=== PATIENT | female | born 1945 | race Caucasian/White ===

== ENCOUNTER → 2018-06-08 | Outpatient (CLI) | payer MEDICARE ==
--- NOTE | 2018-06-09 11:41 | MM ---
Reason for exam: screening (asymptomatic). Last mammogram was performed 1 year and 4 months ago. History: Patient is postmenopausal and is nulliparous. Family history of breast cancer in maternal cousin at age 50. Took estrogen for 10 years beginning at age 44. Physical Findings: A clinical breast exam by your physician is recommended on an annual basis and results should be correlated with mammographic findings. MG 3D Screening Mammo W/Cad Bilateral CC and MLO view(s) were taken. Prior study comparison: February 10, 2017, bilateral MG 3d screening mammo w/cad. January 08, 2016, bilateral MG 3d screening mammo w/cad. The breast tissue is heterogeneously dense. This may lower the sensitivity of mammography. No significant changes when compared with prior studies. ASSESSMENT: Benign, BI-RAD 2 RECOMMENDATION: Routine screening mammogram of both breasts in 1 year.
== END | disposition home or self-care (01) ==
LOC: RADMAMWWP 09:41
PROVIDERS: ATTEND Obstetrics & Gynecology
DX: Z12.31 Encounter for screening mammogram for malignant neoplasm of breast (principal)
CPT/HCPCS: 77063; 77067

== ENCOUNTER → 2019-11-30 | Outpatient (CLI) | payer MEDICARE ==
--- NOTE | 2019-12-03 09:30 | MM ---
Reason for exam: screening (asymptomatic). Last mammogram was performed 1 year and 6 months ago. History: Patient is postmenopausal, history of other cancer, and is nulliparous. Family history of breast cancer in maternal cousin at age 50. Took estrogen for 10 years beginning at age 44. Physical Findings: A clinical breast exam by your physician is recommended on an annual basis and results should be correlated with mammographic findings. MG 3D Screening Mammo W/Cad Bilateral CC and MLO view(s) were taken. Prior study comparison: June 08, 2018, bilateral MG 3d screening mammo w/cad. February 10, 2017, bilateral MG 3d screening mammo w/cad. The breast tissue is heterogeneously dense. This may lower the sensitivity of mammography. Benign appearing bilateral calcifications. No significant changes when compared with prior studies. ASSESSMENT: Benign, BI-RAD 2 RECOMMENDATION: Routine screening mammogram of both breasts in 1 year.
== END | disposition home or self-care (01) ==
LOC: RADMAMWWP 10:03
PROVIDERS: ATTEND Obstetrics & Gynecology
DX: Z12.31 Encounter for screening mammogram for malignant neoplasm of breast (principal)
CPT/HCPCS: 77063; 77067

== ENCOUNTER → 2020-12-02 | Outpatient (CLI) | payer MEDICARE ==
--- NOTE | 2020-12-04 13:44 | MM ---
Reason for exam: screening (asymptomatic). Last mammogram was performed 1 year ago. History: Patient is postmenopausal, history of other cancer, and is nulliparous. Family history of breast cancer in maternal cousin at age 50. Took estrogen for 10 years beginning at age 44. Physical Findings: A clinical breast exam by your physician is recommended on an annual basis and results should be correlated with mammographic findings. MG 3D Screening Mammo W/Cad Bilateral CC and MLO view(s) were taken. Prior study comparison: November 30, 2019, bilateral MG 3d screening mammo w/cad. June 08, 2018, bilateral MG 3d screening mammo w/cad. The breast tissue is heterogeneously dense. This may lower the sensitivity of mammography. No significant changes when compared with prior studies. ASSESSMENT: Benign, BI-RAD 2 RECOMMENDATION: Routine screening mammogram of both breasts in 1 year.
== END | disposition home or self-care (01) ==
LOC: RADMAMWWP 15:05
PROVIDERS: ATTEND Obstetrics & Gynecology
DX: Z12.31 Encounter for screening mammogram for malignant neoplasm of breast (principal); Z80.3 Family history of malignant neoplasm of breast; Z78.0 Asymptomatic menopausal state
CPT/HCPCS: 77063; 77067

== ENCOUNTER 2021-03-03 12:58 | Emergency (ER) | payer MEDICARE ==
[2021-03-03 13:07] VITALS: TEMP 98.3
[2021-03-03] MEDS ORDERED: MECLIZINE 25 MG TAB PO STA (13:16)
[2021-03-03] MEDS ORDERED: DIAZEPAM 5 MG/ML 2 ML INJ IVP STA (13:16)
[2021-03-03] MEDS ORDERED: ONDANSETRON 4 MG/2 ML VIAL IVP STA (13:16)
--- NOTE | 2021-03-03 13:24 | ED ---
General Adult HPI - General Chief complaint: Dizziness Stated complaint: Dizziness Time Seen by Provider: 03/03/21 13:00 Source: patient, EMS, RN notes reviewed, old records reviewed Mode of arrival: EMS Limitations: no limitations - History of Present Illness Initial comments: This is a 76-year-old female who presents emergency Department complaining of being dizzy. Patient states it started on Tuesday during physical therapy. Symptoms have been getting worse and today after physical therapy she was extremely dizzy and nauseated and vomited. Patient states a couple days ago she did have a mild headache but she no longer has one. Patient states she keeps her eyes" makes her symptoms considerably better. Patient denies any chest pain or palpitations. Patient denies any difficulty breathing shortest breath per patient denies any abdominal pain patient denies nausea vomiting diarrhea per patient denies any visual disturbance. Patient denies any fever chills or cough. Patient denies any hearing loss or ringing in the ears. - Related Data Home Medications Medication Instructions Recorded Confirmed Aspirin EC [Ecotrin] 81 mg PO DAILY 08/18/15 03/22/19 Atorvastatin [Lipitor] 20 mg PO QAM 08/18/15 03/22/19 Calcium Carbonate/Vitamin D3 1 tab PO DAILY 08/18/15 03/22/19 [Calcium 600-Vit D3 400 Caplet] Cod Liver Oil 1 cap PO DAILY 08/18/15 03/22/19 Cyanocobalamin (Vitamin B-12) 5,000 mcg PO DAILY 08/18/15 03/22/19 [Vitamin B12] Esomeprazole Magnesium [NexIUM] 20 mg PO DAILY 08/18/15 03/22/19 Folic Acid 0.4 mg PO DAILY 08/18/15 03/22/19 Meclizine [Antivert] 12.5 mg PO BID PRN 08/18/15 03/22/19 Multivitamins, Thera [Multivitamin] 1 tab PO DAILY 08/18/15 03/22/19 Omeprazole 20 mg PO BID PRN 08/18/15 03/22/19 Tolterodine Tartrate [Detrol LA] 4 mg PO DAILY 08/18/15 03/22/19 Vitamin E (Dl,Tocopheryl Acet) 400 unit PO DAILY 08/18/15 03/22/19 [Vitamin E] metFORMIN HCL [Glucophage] 1,000 mg PO BID 08/18/15 03/22/19 Previous Rx's Medication Instructions Recorded Losartan [Cozaar] 25 mg PO DAILY #30 tab 08/18/15 Meclizine [Antivert] 25 mg PO TID #20 tab 03/03/21 Allergies Allergy/AdvReac Type Severity Reaction Status Date / Time Sulfa (Sulfonamide Allergy Unknown Verified 03/03/21 13:07 Antibiotics) Review of Systems ROS Statement: Those systems with pertinent positive or pertinent negative responses have been documented in the HPI. ROS Other: All systems not noted in ROS Statement are negative. 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 Patient is nontoxic and well- hydrated and is in mild distress. ENT: Neck is soft and supple. No significant lymphadenopathy is noted. Oropharynx is clear. Moist mucous membranes. Neck has full range of motion without eliciting any pain. EYES: The sclera were anicteric and conjunctiva were pink and moist. Extraocular movements were intact and pupils were equal round and reactive to light. Eyelids were unremarkable. PULMONARY: Unlabored respirations. Good breath sounds bilaterally. No audible rales rhonchi or wheezing was noted. CARDIOVASCULAR: There is a regular rate and rhythm without any murmurs gallops or rubs. ABDOMEN: Soft and nontender with normal bowel sounds. SKIN: Skin is clear with no lesions or rashes and otherwise unremarkable. NEUROLOGIC: Patient is alert and oriented x3. Cranial nerves II through XII are grossly intact. Motor and sensory are also intact. Normal speech, volume and content. Symmetrical smile. Finger to nose testing bilaterally was normal MUSCULOSKELETAL: Normal extremities with adequate strength and full range of motion. LYMPHATICS: No significant lymphadenopathy is noted PSYCHIATRIC: Normal psychiatric evaluation. Limitations: no limitations Course Vital Signs 03/03/21 03/03/21 13:04 14:27 Temperature 98.3 F Pulse Rate 73 80 Respiratory 20 18 Rate Blood Pressure 183/83 187/89 O2 Sat by Pulse 98 98 Oximetry Medical Decision Making - Medical Decision Making EKG shows normal sinus rhythm at 77 bpm RI interval is 208 QRSs 1:30 for QT interval 462 QTC is 5.2. Patient's EKG shows left bundle branch block. This is seen in previous EKGs. Patient's CT of the brain showed no acute abnormality. Chest x-ray showed no acute abnormalities. Patient received Zofran and Antivert and 2 of Valium. I will back in and reevaluated the patient and patient was feeling considerably better though she still had a little dizziness. - Lab Data Result diagrams: 03/03/21 13:26 03/03/21 13:26 Lab Results 03/03/21 03/03/21 03/03/21 Range/Units 13:26 13:26 13:26 WBC 10.5 (3.8-10.6) k/uL RBC 4.86 (3.80-5.40) m/uL Hgb 12.3 (11.4-16.0) gm/dL Hct 39.4 (34.0-46.0) % MCV 81.1 (80.0-100.0) fL MCH 25.3 (25.0-35.0) pg MCHC 31.2 (31.0-37.0) g/dL RDW 14.1 (11.5-15.5) % Plt Count 280 (150-450) k/uL MPV 7.8 Neutrophils % 84 % Lymphocytes % 13 % Monocytes % 2 % Eosinophils % 0 % Basophils % 0 % Neutrophils # 8.8 H (1.3-7.7) k/uL Lymphocytes # 1.3 (1.0-4.8) k/uL Monocytes # 0.2 (0-1.0) k/uL Eosinophils # 0.0 (0-0.7) k/uL Basophils # 0.0 (0-0.2) k/uL Hypochromasia Slight PT 11.0 (9.0-12.0) sec INR 1.0 (<1.2) APTT 19.1 L (22.0-30.0) sec Sodium 136 L (137-145) mmol/L Potassium 4.3 (3.5-5.1) mmol/L Chloride 105 (98-107) mmol/L Carbon Dioxide 21 L (22-30) mmol/L Anion Gap 10 mmol/L BUN 20 H (7-17) mg/dL Creatinine 0.74 (0.52-1.04) mg/dL Est GFR (CKD-EPI)AfAm >90 (>60 ml/min/1.73 sqM) Est GFR (CKD-EPI)NonAf 80 (>60 ml/min/1.73 sqM) Glucose 250 H (74-99) mg/dL Calcium 9.4 (8.4-10.2) mg/dL Magnesium 1.6 (1.6-2.3) mg/dL Total Bilirubin 0.7 (0.2-1.3) mg/dL AST 26 (14-36) U/L ALT 22 (4-34) U/L Alkaline Phosphatase 155 H (38-126) U/L Troponin I (0.000-0.034) ng/mL Total Protein 7.2 (6.3-8.2) g/dL Albumin 3.9 (3.5-5.0) g/dL 03/03/21 Range/Units 13:26 WBC (3.8-10.6) k/uL RBC (3.80-5.40) m/uL Hgb (11.4-16.0) gm/dL Hct (34.0-46.0) % MCV (80.0-100.0) fL MCH (25.0-35.0) pg MCHC (31.0-37.0) g/dL RDW (11.5-15.5) % Plt Count (150-450) k/uL MPV Neutrophils % % Lymphocytes % % Monocytes % % Eosinophils % % Basophils % % Neutrophils # (1.3-7.7) k/uL Lymphocytes # (1.0-4.8) k/uL Monocytes # (0-1.0) k/uL Eosinophils # (0-0.7) k/uL Basophils # (0-0.2) k/uL Hypochromasia PT (9.0-12.0) sec INR (<1.2) APTT (22.0-30.0) sec Sodium (137-145) mmol/L Potassium (3.5-5.1) mmol/L Chloride (98-107) mmol/L Carbon Dioxide (22-30) mmol/L Anion Gap mmol/L BUN (7-17) mg/dL Creatinine (0.52-1.04) mg/dL Est GFR (CKD-EPI)AfAm (>60 ml/min/1.73 sqM) Est GFR (CKD-EPI)NonAf (>60 ml/min/1.73 sqM) Glucose (74-99) mg/dL Calcium (8.4-10.2) mg/dL Magnesium (1.6-2.3) mg/dL Total Bilirubin (0.2-1.3) mg/dL AST (14-36) U/L ALT (4-34) U/L Alkaline Phosphatase (38-126) U/L Troponin I <0.012 (0.000-0.034) ng/mL Total Protein (6.3-8.2) g/dL Albumin (3.5-5.0) g/dL Disposition Clinical Impression: Vertigo Disposition: HOME SELF-CARE Condition: Good Instructions (If sedation given, give patient instructions): Vertigo (ED) Prescriptions: Meclizine [Antivert] 25 mg PO TID #20 tab Is patient prescribed a controlled substance at d/c from ED?: No Referrals: Tima Kim DO [Primary Care Provider] - 1-2 days Time of Disposition: 15:16
[2021-03-03 13:44] LABS: Basophils % (A) 0 %; Eosinophils % (A) 0 %; HCT 39.4 % (34.0-46.0); HGB 12.3 gm/dL (11.4-16.0); Hypochromasia Slight; Lymphocytes # (A) 1.3 k/uL (1.0-4.8); Lymphocytes % (A) 13 %; MCH 25.3 pg (25.0-35.0); MCHC 31.2 g/dL (31.0-37.0); MCV 81.1 fL (80.0-100.0); Mean Platelet Volume 7.8; Monocytes # (A) 0.2 k/uL (0-1.0); Monocytes % (A) 2 %; Neutrophils # (A) 8.8 k/uL (1.3-7.7); Neutrophils % (A) 84 %; Platelet Count 280 k/uL (150-450); RBC 4.86 m/uL (3.80-5.40); RDW 14.1 % (11.5-15.5); WBC 10.5 k/uL (3.8-10.6)
[2021-03-03 13:55] LABS: ALT 22 U/L (4-34); AST 26 U/L (14-36); African American GFR (CKD) >90 (>60 ml/min/1.73 sqM); Albumin 3.9 g/dL (3.5-5.0); Alkaline Phosphatase 155 U/L (38-126); Anion Gap 10 mmol/L; Blood Urea Nitrogen 20 mg/dL (7-17); Calcium 9.4 mg/dL (8.4-10.2); Carbon Dioxide 21 mmol/L (22-30); Chloride 105 mmol/L (98-107); Glucose 250 mg/dL (74-99); Magnesium 1.6 mg/dL (1.6-2.3); Non-African American GFR(CKD) 80 (>60 ml/min/1.73 sqM); Potassium 4.3 mmol/L (3.5-5.1); Sodium 136 mmol/L (137-145); Total Bilirubin 0.7 mg/dL (0.2-1.3); Total Protein 7.2 g/dL (6.3-8.2)
--- NOTE | 2021-03-03 14:03 | CT ---
EXAMINATION TYPE: CT brain wo con DATE OF EXAM: 03/03/2021 HISTORY: headache CT DLP: 1099.4 mGycm. Automated Exposure Control for Dose Reduction was Utilized. TECHNIQUE: CT scan of the head is performed without contrast. COMPARISON: CT brain August 18, 2015. FINDINGS: There is no acute intracranial hemorrhage or midline shift identified. There is mild to m oderate diffuse ventricular and sulcal prominence consistent with diffuse age-related cerebral atroph y. There is moderate to severe low-attenuation in the periventricular white matter consistent with c hronic small vessel ischemic change in patient of this age. The globes are intact and the visualized sinuses are clear. IMPRESSION: No acute intracranial hemorrhage or midline shift. There is mild to moderate diffuse c erebral atrophy and moderate to severe chronic small vessel ischemic change redemonstrated. Interval slight progression of findings noted from 2016 CT.
[2021-03-03 14:07] LABS: Partial Thromboplastin Time 19.1 sec (22.0-30.0)
--- NOTE | 2021-03-03 14:07 | XR ---
EXAMINATION TYPE: XR chest 2V DATE OF EXAM: 03/03/2021 COMPARISON: 08/11/1715 TECHNIQUE: PA and lateral views submitted. HISTORY: Chest pain FINDINGS: Heart size prominent with atherosclerotic change aorta. Coarsened interstitium. No pleural effusion o r pneumothorax. Degenerative change spine. Subsegmental changes left lung base. IMPRESSION: 1. Left basilar atelectasis or early infiltrate. 2. COPD. Correlate for chronic interstitial lung disease.
[2021-03-03 14:28] VITALS: BP 187/89; PULSE 80; RESP 18
[2021-03-03] MEDS ORDERED: ONDANSETRON ODT 4 MG TAB PO STA (16:20)
== END 2021-03-03 17:55 | disposition home or self-care (01) ==
LOC: EC 12:58
DX: R42 Dizziness and giddiness (principal); E11.22 Type 2 diabetes mellitus with diabetic chronic kidney disease; I12.9 Hypertensive chronic kidney disease with stage 1 through stage 4 chronic kidney disease, or unspecified chronic kidney disease; N18.2 Chronic kidney disease, stage 2 (mild); K21.9 Gastro-esophageal reflux disease without esophagitis; E78.5 Hyperlipidemia, unspecified; F32.A Depression, unspecified; Z79.82 Long term (current) use of aspirin; Z79.84 Long term (current) use of oral hypoglycemic drugs; Z88.2 Allergy status to sulfonamides; Z90.710 Acquired absence of both cervix and uterus
CPT/HCPCS: 99285; 96374; 96375; 36415; 93005; 80053; 83735; 84484; 85025; 85610; 85730; 71046; 70450; J3360; J2405

== ENCOUNTER 2021-03-04 17:45 | Inpatient (IN) | payer MEDICARE ==
[2021-03-04] MEDS ORDERED: SODIUM CHLORIDE 0.9% 500 ML 500 ML IV STA (20:47)
[2021-03-04] MEDS ORDERED: ONDANSETRON 4 MG/2 ML VIAL IVP STA (20:47)
[2021-03-04] MEDS ORDERED: MECLIZINE 12.5 MG TAB PO STA (20:47)
[2021-03-04] MEDS ORDERED: SCOPOLAMINE 1.5MG/72HR PATCH TRANSDERM STA (20:49)
--- NOTE | 2021-03-04 20:56 | ED ---
General Adult HPI - General Source: patient, family, RN notes reviewed Mode of arrival: wheelchair Limitations: no limitations <Uriel Louis - Last Filed: 03/04/21 22:44> <Latoya Van - Last Filed: 03/06/21 12:23> - General Chief complaint: Recheck/Abnormal Lab/Rx Stated complaint: vertigo-revisit Time Seen by Provider: 03/04/21 20:40 - History of Present Illness Initial comments: This is a pleasant 76-year-old female who presents to emergency department stating that she had onset of vertigo which started Tuesday when she was at physical therapy. Patient states that the dizziness has been getting worse over the past several days. Patient was actually seen here yesterday and had a workup done to include a CT of the head. Patient was given meclizine. Patient states this medication seems to be doing nothing to help her symptomology. Patient still having a spinning sensation with subsequent nausea. Patient denies any chest pain. Patient denies any vision or hearing disturbance. No numbness or tingling. Patient did have a mild headache at onset symptomology but that has resolved. No abdominal pain. No problems with bowel movements or urination. Patient states she feels generally weak because she has not had anything to eat in 3 days. Patient is a known diabetic. Denies hematuria. No skin rashes or lesions. No focal weakness. (Uriel Louis) - Related Data Home Medications Medication Instructions Recorded Confirmed Aspirin EC [Ecotrin] 81 mg PO DAILY 08/18/15 03/04/21 Atorvastatin [Lipitor] 20 mg PO DAILY 08/18/15 03/04/21 Calcium Carbonate/Vitamin D3 1 tab PO DAILY 08/18/15 03/04/21 [Calcium 600-Vit D3 400 Caplet] Cod Liver Oil 2 cap PO DAILY 08/18/15 03/04/21 Cyanocobalamin (Vitamin B-12) 5,000 mcg PO MOWEFR 08/18/15 03/04/21 [Vitamin B12] Folic Acid 0.4 mg PO DAILY 08/18/15 03/04/21 Omeprazole 20 mg PO Q48H 08/18/15 03/04/21 Tolterodine Tartrate [Detrol LA] 4 mg PO DAILY 08/18/15 03/04/21 Vitamin E (Dl,Tocopheryl Acet) 400 unit PO DAILY 08/18/15 03/04/21 [Vitamin E] metFORMIN HCL [Glucophage] 500 mg PO DAILY 08/18/15 03/04/21 Multivit-Min/Iron/Folic/Lutein 1 tab PO DAILY 03/04/21 03/04/21 [Centrum Silver Women Tablet] cycloSPORINE [Restasis] 1 applicator BOTH EYES BID 03/04/21 03/04/21 metFORMIN HCL [Glucophage] 1,000 mg PO HS 03/04/21 03/04/21 Previous Rx's Medication Instructions Recorded Losartan [Cozaar] 25 mg PO DAILY #30 tab 08/18/15 Meclizine [Antivert] 25 mg PO TID #20 tab 03/03/21 Allergies Allergy/AdvReac Type Severity Reaction Status Date / Time Sulfa (Sulfonamide Allergy Unknown Verified 03/04/21 21:53 Antibiotics) Review of Systems ROS Other: All systems not noted in ROS Statement are negative. <Uriel Louis - Last Filed: 03/04/21 22:44> ROS Other: All systems not noted in ROS Statement are negative. <Latoya Van - Last Filed: 03/06/21 12:23> ROS Statement: Those systems with pertinent positive or pertinent negative responses have been documented in the HPI. 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 Patient does have some saccade with hints exam). Absent: scleral icterus, conjunctival injection, periorbital swelling ENT exam: Present: normal exam, mucous membranes moist, TM's normal bilaterally, normal external ear exam Neck exam: Present: normal inspection. Absent: tenderness, meningismus, lymphadenopathy Respiratory exam: Present: normal lung sounds bilaterally. Absent: respiratory distress, wheezes, rales, rhonchi, stridor Cardiovascular Exam: Present: regular rate, normal rhythm, normal heart sounds. Absent: systolic murmur, diastolic murmur, rubs, gallop, clicks GI/Abdominal exam: Present: soft, normal bowel sounds. Absent: distended, tenderness, guarding, rebound, rigid Extremities exam: Present: normal inspection, full ROM, normal capillary refill. Absent: tenderness, pedal edema, joint swelling, calf tenderness Back exam: Present: normal inspection Neurological exam: Present: alert, oriented X3, CN II-XII intact, other (Positive pronator drift on the right which is very mild. Difficulty with finger to nose involving the left hand.) Expanded Patient oriented to: Present: person, place, time Speech: Present: fluid speech Cerebellar function: Finger to Nose: Abnormal Left, Heel to [place]: Normal Eye Response: (4) open spontaneously Motor Response: (6) obeys commands Verbal Response: (5) oriented Elisabet Total: 15 Psychiatric exam: Present: normal affect, normal mood Skin exam: Present: warm, dry, intact, normal color. Absent: rash <Uriel Louis - Last Filed: 03/04/21 22:44> - General Exam Comments Initial Comments: This is a generally healthy-appearing 76-year-old female in mild distress. Patient does not appear to be ill or toxic. Cranial nerves II through XII are intact. (Uriel Louis) Course Vital Signs 03/04/21 03/04/21 03/05/21 18:55 22:00 01:00 Temperature 99.3 F Pulse Rate 94 66 68 Pulse Rate [ Left] Respiratory 18 18 18 Rate Blood Pressure 169/84 171/89 143/83 Blood Pressure [Left Arm] O2 Sat by Pulse 99 97 97 Oximetry 03/05/21 03/05/21 03/05/21 03:20 05:42 07:00 Temperature 98.4 F Pulse Rate 68 67 Pulse Rate [ 70 Left] Respiratory 18 18 18 Rate Blood Pressure 141/75 151/72 Blood Pressure 174/82 [Left Arm] O2 Sat by Pulse 96 97 99 Oximetry 03/05/21 07:12 Temperature 98.7 F Pulse Rate 71 Pulse Rate [ Left] Respiratory 18 Rate Blood Pressure 154/79 Blood Pressure [Left Arm] O2 Sat by Pulse 95 Oximetry Medical Decision Making - Lab Data Result diagrams: 03/04/21 21:19 03/04/21 21:19 - Radiology Data Radiology results: report reviewed, image reviewed <Uriel Louis - Last Filed: 03/04/21 22:44> - Lab Data Result diagrams: 03/04/21 21:19 03/04/21 21:19 <Latoya Van Abhilash - Last Filed: 03/06/21 12:23> - Medical Decision Making Patient presents with intractable vertigo with nausea. Patient will be treated with fluids, meclizine, scopolamine. I did note that the patient has some difficulty with [id number] involving her left hand as well as evidence of pronator drift on the right. We'll consult neurology. Case was discussed in detail with the on-call neurologist, Dr. Ashford who wanted CTA of the head and neck. He also suggests that we admit the patient for observation and MRI in the morning. 325 mg of aspirin advised by neurology. CT head neck shows no acute pathology. Patient given 325 mg of aspirin. Case was discussed with the internal medicine physician, Dr. Dietrich. Patient will be admitted with subsequent MRI in the morning with neurological consultation. (Uriel Louis) - Lab Data Lab Results 03/04/21 03/04/21 03/04/21 Range/Units 21:19 21:19 21:19 WBC 11.1 H (3.8-10.6) k/uL RBC 5.32 (3.80-5.40) m/uL Hgb 13.9 (11.4-16.0) gm/dL Hct 43.3 (34.0-46.0) % MCV 81.5 (80.0-100.0) fL MCH 26.1 (25.0-35.0) pg MCHC 32.0 (31.0-37.0) g/dL RDW 14.8 (11.5-15.5) % Plt Count 346 (150-450) k/uL MPV 7.8 Neutrophils % 82 % Lymphocytes % 13 % Monocytes % 3 % Eosinophils % 0 % Basophils % 0 % Neutrophils # 9.1 H (1.3-7.7) k/uL Lymphocytes # 1.5 (1.0-4.8) k/uL Monocytes # 0.4 (0-1.0) k/uL Eosinophils # 0.1 (0-0.7) k/uL Basophils # 0.0 (0-0.2) k/uL Hypochromasia Slight Sodium 136 L (137-145) mmol/L Potassium 4.8 (3.5-5.1) mmol/L Chloride 103 (98-107) mmol/L Carbon Dioxide 22 (22-30) mmol/L Anion Gap 11 mmol/L BUN 23 H (7-17) mg/dL Creatinine 0.76 (0.52-1.04) mg/dL Est GFR (CKD-EPI)AfAm 89 (>60 ml/min/1.73 sqM) Est GFR (CKD-EPI)NonAf 77 (>60 ml/min/1.73 sqM) Glucose 231 H (74-99) mg/dL POC Glucose (mg/dL) (75-99) mg/dL POC Glu Deportation Examiner ID Estimated Ave Glu mg/dL Hemoglobin A1c % Calcium 9.7 (8.4-10.2) mg/dL Total Bilirubin 0.8 (0.2-1.3) mg/dL AST 37 H (14-36) U/L ALT 23 (4-34) U/L Alkaline Phosphatase 143 H (38-126) U/L Troponin I (0.000-0.034) ng/mL Total Protein 7.6 (6.3-8.2) g/dL Albumin 4.1 (3.5-5.0) g/dL Triglycerides (0.00-149.00) mg/dL Cholesterol (0.00-200.00) mg/dL LDL Cholesterol, Calc (0.0-131.0) mg/dL VLDL Cholesterol, Calc (5.00-40.00) mg/dL HDL Cholesterol (40.00-60.00) mg/dL Cholesterol/HDL Ratio Ratio Vitamin B12 (200.0-944.0) pg/mL Folate (4.40-31.00) ng/mL TSH (0.350-5.500) uIU/mL Urine Color Yellow Urine Appearance Clear (Clear) Urine pH 5.5 (5.0-8.0) Ur Specific [place] 1.020 (1.001-1.035) Urine Protein Trace H (Negative) Urine Glucose (UA) Negative (Negative) Urine Ketones Negative (Negative) Urine Blood Negative (Negative) Urine Nitrite Negative (Negative) Urine Bilirubin Negative (Negative) Urine Urobilinogen <2.0 (<2.0) mg/dL Ur Leukocyte Esterase Negative (Negative) Coronavirus (PCR) (Not Detectd) 03/04/21 03/04/21 03/04/21 Range/Units 21:19 21:19 23:59 WBC (3.8-10.6) k/uL RBC (3.80-5.40) m/uL Hgb (11.4-16.0) gm/dL Hct (34.0-46.0) % MCV (80.0-100.0) fL MCH (25.0-35.0) pg MCHC (31.0-37.0) g/dL RDW (11.5-15.5) % Plt Count (150-450) k/uL MPV Neutrophils % % Lymphocytes % % Monocytes % % Eosinophils % % Basophils % % Neutrophils # (1.3-7.7) k/uL Lymphocytes # (1.0-4.8) k/uL Monocytes # (0-1.0) k/uL Eosinophils # (0-0.7) k/uL Basophils # (0-0.2) k/uL Hypochromasia Sodium (137-145) mmol/L Potassium (3.5-5.1) mmol/L Chloride (98-107) mmol/L Carbon Dioxide (22-30) mmol/L Anion Gap mmol/L BUN (7-17) mg/dL Creatinine (0.52-1.04) mg/dL Est GFR (CKD-EPI)AfAm (>60 ml/min/1.73 sqM) Est GFR (CKD-EPI)NonAf (>60 ml/min/1.73 sqM) Glucose (74-99) mg/dL POC Glucose (mg/dL) (75-99) mg/dL POC Glu Deportation Examiner ID Estimated Ave Glu mg/dL Hemoglobin A1c % Calcium (8.4-10.2) mg/dL Total Bilirubin (0.2-1.3) mg/dL AST (14-36) U/L ALT (4-34) U/L Alkaline Phosphatase (38-126) U/L Troponin I 0.014 0.016 (0.000-0.034) ng/mL Total Protein (6.3-8.2) g/dL Albumin (3.5-5.0) g/dL Triglycerides (0.00-149.00) mg/dL Cholesterol (0.00-200.00) mg/dL LDL Cholesterol, Calc (0.0-131.0) mg/dL VLDL Cholesterol, Calc (5.00-40.00) mg/dL HDL Cholesterol (40.00-60.00) mg/dL Cholesterol/HDL Ratio Ratio Vitamin B12 (200.0-944.0) pg/mL Folate (4.40-31.00) ng/mL TSH (0.350-5.500) uIU/mL Urine Color Urine Appearance (Clear) Urine pH (5.0-8.0) Ur Specific [place] (1.001-1.035) Urine Protein (Negative) Urine Glucose (UA) (Negative) Urine Ketones (Negative) Urine Blood (Negative) Urine Nitrite (Negative) Urine Bilirubin (Negative) Urine Urobilinogen (<2.0) mg/dL Ur Leukocyte Esterase (Negative) Coronavirus (PCR) Not Detected (Not Detectd) 03/05/21 03/05/21 03/05/21 Range/Units 03:43 03:43 03:43 WBC (3.8-10.6) k/uL RBC (3.80-5.40) m/uL Hgb (11.4-16.0) gm/dL Hct (34.0-46.0) % MCV (80.0-100.0) fL MCH (25.0-35.0) pg MCHC (31.0-37.0) g/dL RDW (11.5-15.5) % Plt Count (150-450) k/uL MPV Neutrophils % % Lymphocytes % % Monocytes % % Eosinophils % % Basophils % % Neutrophils # (1.3-7.7) k/uL Lymphocytes # (1.0-4.8) k/uL Monocytes # (0-1.0) k/uL Eosinophils # (0-0.7) k/uL Basophils # (0-0.2) k/uL Hypochromasia Sodium (137-145) mmol/L Potassium (3.5-5.1) mmol/L Chloride (98-107) mmol/L Carbon Dioxide (22-30) mmol/L Anion Gap mmol/L BUN (7-17) mg/dL Creatinine (0.52-1.04) mg/dL Est GFR (CKD-EPI)AfAm (>60 ml/min/1.73 sqM) Est GFR (CKD-EPI)NonAf (>60 ml/min/1.73 sqM) Glucose (74-99) mg/dL POC Glucose (mg/dL) (75-99) mg/dL POC Glu Deportation Examiner ID Estimated Ave Glu mg/dL [facility] Hemoglobin A1c CANCELED % Calcium (8.4-10.2) mg/dL Total Bilirubin (0.2-1.3) mg/dL AST (14-36) U/L ALT (4-34) U/L Alkaline Phosphatase (38-126) U/L Troponin I 0.019 (0.000-0.034) ng/mL Total Protein (6.3-8.2) g/dL Albumin (3.5-5.0) g/dL Triglycerides 109.00 (0.00-149.00) mg/dL Cholesterol 147.00 (0.00-200.00) mg/dL LDL Cholesterol, Calc 77.7 (0.0-131.0) mg/dL VLDL Cholesterol, Calc 21.80 (5.00-40.00) mg/dL HDL Cholesterol 47.50 (40.00-60.00) mg/dL Cholesterol/HDL Ratio 3.09 Ratio Vitamin B12 (200.0-944.0) pg/mL Folate (4.40-31.00) ng/mL TSH (0.350-5.500) uIU/mL Urine Color Urine Appearance (Clear) Urine pH (5.0-8.0) Ur Specific [place] (1.001-1.035) Urine Protein (Negative) Urine Glucose (UA) (Negative) Urine Ketones (Negative) Urine Blood (Negative) Urine Nitrite (Negative) Urine Bilirubin (Negative) Urine Urobilinogen (<2.0) mg/dL Ur Leukocyte Esterase (Negative) Coronavirus (PCR) (Not Detectd) 03/05/21 03/05/21 Range/Units 03:43 12:50 WBC (3.8-10.6) k/uL RBC (3.80-5.40) m/uL Hgb (11.4-16.0) gm/dL Hct (34.0-46.0) % MCV (80.0-100.0) fL MCH (25.0-35.0) pg MCHC (31.0-37.0) g/dL RDW (11.5-15.5) % Plt Count (150-450) k/uL MPV Neutrophils % % Lymphocytes % % Monocytes % % Eosinophils % % Basophils % % Neutrophils # (1.3-7.7) k/uL Lymphocytes # (1.0-4.8) k/uL Monocytes # (0-1.0) k/uL Eosinophils # (0-0.7) k/uL Basophils # (0-0.2) k/uL Hypochromasia Sodium (137-145) mmol/L Potassium (3.5-5.1) mmol/L Chloride (98-107) mmol/L Carbon Dioxide (22-30) mmol/L Anion Gap mmol/L BUN (7-17) mg/dL Creatinine (0.52-1.04) mg/dL Est GFR (CKD-EPI)AfAm (>60 ml/min/1.73 sqM) Est GFR (CKD-EPI)NonAf (>60 ml/min/1.73 sqM) Glucose (74-99) mg/dL POC Glucose (mg/dL) 120 H (75-99) mg/dL POC Glu Deportation Examiner LASHAE AguilarMavis weirelin Estimated Ave Glu mg/dL Hemoglobin A1c % Calcium (8.4-10.2) mg/dL Total Bilirubin (0.2-1.3) mg/dL AST (14-36) U/L ALT (4-34) U/L Alkaline Phosphatase (38-126) U/L Troponin I (0.000-0.034) ng/mL Total Protein (6.3-8.2) g/dL Albumin (3.5-5.0) g/dL Triglycerides (0.00-149.00) mg/dL Cholesterol (0.00-200.00) mg/dL LDL Cholesterol, Calc (0.0-131.0) mg/dL VLDL Cholesterol, Calc (5.00-40.00) mg/dL HDL Cholesterol (40.00-60.00) mg/dL Cholesterol/HDL Ratio Ratio Vitamin B12 861.0 (200.0-944.0) pg/mL Folate >20.00 (4.40-31.00) ng/mL TSH 0.613 (0.350-5.500) uIU/mL Urine Color Urine Appearance (Clear) Urine pH (5.0-8.0) Ur Specific [place] (1.001-1.035) Urine Protein (Negative) Urine Glucose (UA) (Negative) Urine Ketones (Negative) Urine Blood (Negative) Urine Nitrite (Negative) Urine Bilirubin (Negative) Urine Urobilinogen (<2.0) mg/dL Ur Leukocyte Esterase (Negative) Coronavirus (PCR) (Not Detectd) - EKG Data EKG Comments: EKG done at 2102 and reviewed by the ED attending physician reveals a left bundle branch block with a QRS duration of 130 ms. Remainder of the intervals are normal. Rate of 71, no evidence of concordance. Patient does have some evidence of nonspecific T-wave inversions in lead 3 and aVF which are somewhat different in morphology from yesterday's EKG. EKG was reviewed by Dr. Van to include the previous study. The case was discussed in detail with ED attending physician. Presentation, findings, treatment plan discussed in detail. (Uriel Louis) Disposition <Uriel Louis - Last Filed: 03/04/21 22:44> <Latoya Van - Last Filed: 03/06/21 12:23> Clinical Impression: Vertigo, Nausea & vomiting, Ataxia, Hypertension, poor control Disposition: ADMITTED IP TO THIS HOSP Condition: Stable
[2021-03-04 21:32] LABS: Basophils % (A) 0 %; Eosinophils # (A) 0.1 k/uL (0-0.7); Eosinophils % (A) 0 %; HCT 43.3 % (34.0-46.0); HGB 13.9 gm/dL (11.4-16.0); Hypochromasia Slight; Lymphocytes # (A) 1.5 k/uL (1.0-4.8); Lymphocytes % (A) 13 %; MCH 26.1 pg (25.0-35.0); MCV 81.5 fL (80.0-100.0); Mean Platelet Volume 7.8; Monocytes # (A) 0.4 k/uL (0-1.0); Monocytes % (A) 3 %; Neutrophils # (A) 9.1 k/uL (1.3-7.7); Neutrophils % (A) 82 %; Platelet Count 346 k/uL (150-450); RBC 5.32 m/uL (3.80-5.40); RDW 14.8 % (11.5-15.5); WBC 11.1 k/uL (3.8-10.6)
[2021-03-04 21:42] LABS: Albumin 4.1 g/dL (3.5-5.0); Calcium 9.7 mg/dL (8.4-10.2); Potassium 4.8 mmol/L (3.5-5.1); Total Bilirubin 0.8 mg/dL (0.2-1.3); Total Protein 7.6 g/dL (6.3-8.2)
[2021-03-04 21:44] LABS: Appearance,Urine Clear (Clear); Bilirubin,Urine Negative (Negative); Blood,Urine Negative (Negative); Color,Urine Yellow; Glucose,Urine (UA) Negative (Negative); Ketones,Urine Negative (Negative); Leukocyte Esterase,Urine Negative (Negative); Nitrite,Urine Negative (Negative); PH, Urine 5.5 (5.0-8.0); Protein,Urine Trace (Negative); Urobilinogen,Urine <2.0 mg/dL (<2.0)
--- NOTE | 2021-03-04 22:22 | CT ---
EXAMINATION TYPE: CT angio head neck DATE OF EXAM: 03/04/2021 HISTORY: c/o vertigo COMPARISON: CT head 03/03/2021. CT DLP: 418.5 mGycm. Automated Exposure Control for Dose Reduction was Utilized. TECHNIQUE: CTA scan of the head/neck is performed with IV Contrast, patient injected with 65cc mL of Isovue 370, axial images are obtained, coronal and sagittal reformatted images are reviewed. 3D jonas nstructed images are created on an independent workstation and reviewed. FINDINGS: There is mild atherosclerosis of the aortic arch. Otherwise normal three-vessel branching of the aort a. There is no evidence of high-grade stenosis, dissection or aneurysm seen in the bilateral common c arotid, cervical internal carotid and vertebral arteries. There is no evidence of high-grade stenosis, dissection or aneurysm in the intracranial internal gunter tid arteries, anterior, middle and posterior cerebral arteries as well as in the imaged vertebral and basilar arteries. The communicating arteries are unremarkable. IMPRESSION: No significant abnormality of the CTA head/neck. NASCET criteria was used in interpretation of this exam?
[2021-03-04] MEDS ORDERED: ASPIRIN 325 MG TAB PO STA (22:26)
[2021-03-04] MEDS ORDERED: ACETAMINOPHEN TAB 325 MG TAB PO PRN (22:39)
[2021-03-05] MEDS: SODIUM CHLORIDE 0.9% 1,000 ML IV SCH ×2 (03:18→23:49)
[2021-03-05] MEDS ORDERED: ASPIRIN 325 MG TAB PO SCH (09:00)
--- NOTE | 2021-03-05 10:19 | P.CNNES ---
History of Present Illness Consult date: 03/05/21 Requesting physician: Uriel Louis Reason for Consult: Vertigo History of Present Illness: Patient is a 76-year-old right-handed female came to the hospital yesterday at 5:45 PM for evaluation of vertigo. Patient states her symptoms started on 02/27/2021 she started having intermittent dull headache p ointing to the back of the head, with mild dizziness off and on and tiredness. She did not think much of it. However on Tuesday, 2 days ago (on 03/03/2020), while she was getting physical therapy, she developed severe vertigo, started having nausea vomiting and a headache. She felt generalized weak, with no focal weakness. No slurred speech, double vision or loss of vision. The physical therapist called the ambulance and she was brought to the hospital. Patient underwent computed tomography scan of the head, given meclizine prescription and then released. Patient however did not feel well. She would continue to have dizziness with any movement. She was feeling generalized weak, her balance was significantly off, with intermittent nausea and vomiting. Patient's brother and niece brought her to the hospital yesterday for persistent symptoms. Patient states that around 02/09/2021, she started having pain in the right shoulder. Therefore she started getting physical therapy for strengthening of the right upper extremity, twice a week. Patient states that about few years ago she had an episode of vertigo, that lasted for a week and then went away. Since then she has been fine, with no further episodes of vertigo. Patient denies any tinnitus or loss of hearing. Patient states that at present she still feels dizzy, when she moves and feels generalized weak, tired and a dull headache. Patient's vitals on arrival blood pressure 169/84, pulse rate 94 temperature 99.3. Patient's blood test shows WBC 11.1 hemoglobin 13.9, platelets 346. Sodium 136 potassium 4.8, BUN 23, creatinine 0.76. AST 37, ALT 23. Troponin negative. UA negative. Coronal virus PCR negative. CTA of head and neck showed no acute abnormality. No stenosis or aneurysm reported. CT head showed no acute intracranial hemorrhage or midline shift. There is mild to moderate diffuse cerebral atrophy and moderate to severe chronic small vessel ischemic change redemonstrated. Interventions slight progression of findings noted from 2016 CT. Chest x-ray showed left basilar atelectasis or early infiltrate. COPD. Correlate for chronic interstitial lung disease. EKG with normal sinus rhythm, left bundle branch block. Patient has history of diabetes for last 5-10 years. Also has hypertension for long time. Never smoked, does not drink alcohol. Patient claims that she does have some numbness of the hands which she believes is from arthritis. Patient's home medications include Detrol LA 4 mg, B12 5000 g orally, Lipitor 20 mg, folic acid 0.4 mg, calcium, aspirin 81 mg, metformin, losartan, multivitamin. Patient states that she has asthma, but is not bothering her. Denies any recent upper respiratory infection or sinus issues. Review of Systems As mentioned above in detail in HPI. All other 14 point of review systems reviewed and unremarkable. 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 History of Any Multi-Drug Resistant Organisms: None Reported Past Surgical History: Hysterectomy Past Psychological History: Depression Smoking Status: Never smoker Past Alcohol Use History: None Reported Past Drug Use History: None Reported Medications and Allergies Home Medications Medication Instructions Recorded Confirmed Type Aspirin EC [Ecotrin] 81 mg PO DAILY 08/18/15 03/04/21 History Atorvastatin [Lipitor] 20 mg PO DAILY 08/18/15 03/04/21 History Calcium Carbonate/Vitamin D3 1 tab PO DAILY 08/18/15 03/04/21 History [Calcium 600-Vit D3 400 Caplet] Cod Liver Oil 2 cap PO DAILY 08/18/15 03/04/21 History Cyanocobalamin (Vitamin B-12) 5,000 mcg PO MOWEFR 08/18/15 03/04/21 History [Vitamin B12] Folic Acid 0.4 mg PO DAILY 08/18/15 03/04/21 History Losartan [Cozaar] 25 mg PO DAILY #30 tab 08/18/15 03/04/21 Rx Omeprazole 20 mg PO Q48H 08/18/15 03/04/21 History Tolterodine Tartrate [Detrol LA] 4 mg PO DAILY 08/18/15 03/04/21 History Vitamin E (Dl,Tocopheryl Acet) 400 unit PO DAILY 08/18/15 03/04/21 History [Vitamin E] metFORMIN HCL [Glucophage] 500 mg PO DAILY 08/18/15 03/04/21 History Meclizine [Antivert] 25 mg PO TID #20 tab 03/03/21 03/04/21 Rx Multivit-Min/Iron/Folic/Lutein 1 tab PO DAILY 03/04/21 03/04/21 History [Centrum Silver Women Tablet] cycloSPORINE [Restasis] 1 applicator BOTH EYES BID 03/04/21 03/04/21 History metFORMIN HCL [Glucophage] 1,000 mg PO HS 03/04/21 03/04/21 History Allergies Allergy/AdvReac Type Severity Reaction Status Date / Time Sulfa (Sulfonamide Allergy Unknown Verified 03/04/21 21:53 Antibiotics) Physical Examination - Vital Signs Vital Signs: Vital Signs Temp Pulse Resp BP Pulse Ox 03/04/21 22:00 66 18 171/89 97 03/04/21 18:55 99.3 F 94 18 169/84 99 Intake and Output 03/04/21 03/04/21 03/05/21 14:59 22:59 06:59 Other: Weight 69.4 kg Patient is an elderly female, in no acute distress. Patient is alert awake oriented to time place and person. Speech and language functions are normal. Attention, concentration and fund of knowledge is adequate. On cranial examination, pupils are round and reacting to light, visual garcia are full on confrontation, with no neglect on double simultaneous stimulation. Her extraocular muscles are intact with no nystagmus. Face is symmetric, tongue protrudes to the midline. Palatal elevation and sensation normal, hearing and shoulder shrug normal, facial sensation normal. Shoulder shrug normal. On muscle strength testing, there is no definitive pronator drift and the strength is normal in arms and legs distally and proximally, except right radio artist, which is 5-as compared to the left. Deep tendon reflexes are symmetric 2+ and plantars downgoing bilaterally. Sensory to touch is equal with no neglect. Cerebellar function showed mild ataxia for [id number] testing only on the left side. No ataxia for [id number]-zm-ablb testing on either side. Tone and bulk of muscles normal. Gait deferred. On general examination, there is no carotid bruit or murmur, S1-S2 audible. Abdomen is soft nontender, bowel sounds present. No organomegaly. Chest is clear to auscultation. Peripheral pulses are present. No edema. Results - Laboratory Findings CBC and BMP: 03/04/21 21:19 03/04/21 21:19 Abnormal Lab Findings: Abnormal Labs 03/04/21 03/04/21 03/04/21 21:19 21:19 21:19 WBC 11.1 H Neutrophils # 9.1 H Sodium 136 L BUN 23 H Glucose 231 H AST 37 H Alkaline Phosphatase 143 H Urine Protein Trace H Assessment and Plan Assessment: * New onset Vertigo, since 02/27/2021, which has got worse in the last 2 days. The vertigo gets worse with position change with nausea and vomiting. Patient also has mild occipital headache. Differential is between central versus peripheral. Examination only significant for mild ataxia for rhqezk-hc-[id number] testing on the left. Rule out cerebellar CVA. CTA of head and neck showed no significant abnormality. * Hypertension * Diabetes * Hyperlipidemia Plan: * Patient undergoing MRI of the brain evaluate for any acute stroke. * Continue aspirin regimen. Patient's dose of aspirin increased from 81 mg to 325 mg for now. * Fasting lipid panel, hemoglobin A1c * 2-D echo, if CVA is confirmed. * B12, folate, TSH. * Neurology will follow. Thank you for the consult
[2021-03-05 11:23] LABS: Chol/HDL Ratio 3.09 Ratio; LDL Cholesterol,Calculated 77.7 mg/dL (0.0-131.0)
[2021-03-05] MEDS ORDERED: ALPRAZolam 0.25 MG TAB PO PRN (12:08)
[2021-03-05] MEDS ORDERED: NALOXONE 0.4 MG/ML 1 ML VIAL IV PRN (12:08)
[2021-03-05] MEDS ORDERED: LACTULOSE 20 GM/30 ML CUP PO PRN (12:08)
[2021-03-05] MEDS ORDERED: CALCIUM CARBONATE 500 MG CHEWABLE PO PRN (12:08)
[2021-03-05] MEDS ORDERED: LOSARTAN 25 MG TAB PO SCH (12:15)
[2021-03-05] MEDS ORDERED: ATORVASTATIN 20 MG TAB PO SCH (12:15)
--- NOTE | 2021-03-05 12:27 | MR ---
EXAMINATION TYPE: MR brain wo con DATE OF EXAM: 03/05/2021 COMPARISON: CT scan 08/11/1715, 03/03/2021 HISTORY: Neuro deficit, acute, stroke suspected TECHNIQUE: T1-weighted sagittal, T2, FLAIR, and diffusion axial, and T2 coronal coronal views of the brain are submitted. FINDINGS: There is abnormal signal involving the left cerebellar hemisphere measuring approximately 4.5 cm in g reatest axis compatible with acute ischemia. There is moderate generalized degenerative change with d iffuse and focal numerous areas of abnormal signal throughout the white matter. Findings are suggesti ve of malignancy. Orbits are symmetric. Changes of chronic sinusitis with nasal septal deviation noted. Craniocervical junction maintained and sella turcica has a normal appearance.. IMPRESSION: 1. Large approximately 4.5 cm area of acute ischemia left cerebellum very mild mass effect upon the f ourth ventricle. Ventricular dilation likely related to generalized degenerative change given finding s are similar to the prior CT scan of the head dated 08/18/2015. 2. Diffuse degenerative and nonspecific white matter changes most typical remote ischemia.
--- NOTE | 2021-03-05 12:46 | ECHOF ---
Referral Reason:Acute stroke MEASUREMENTS -------- HEIGHT: 157.5 cm WEIGHT: 69.4 kg BP: 154/79 RVIDd: 2.9 cm (< 3.3) IVSd: 1.3 cm (0.6 - 1.1) LVIDd: 4.1 cm (3.9 - 5.3) LVPWd: 1.3 cm (0.6 - 1.1) IVSs: 1.5 cm LVIDs: 2.9 cm LVPWs: 1.9 cm LA Diam: 3.3 cm (2.7 - 3.8) LAESV Index (A-L): 37.98 ml/m Ao Diam: 2.9 cm (2.0 - 3.7) AV Cusp: 1.7 cm (1.5 - 2.6) MV EXCURSION: 10.629 mm (> 18.000) MV EF SLOPE: 18 mm/s (70 - 150) EPSS: 0.8 cm MV E Ke: 0.94 m/s MV DecT: 283 ms MV A Ke: 1.55 m/s MV E/A Ratio: 0.61 RAP: 5.00 mmHg RVSP: 25.62 mmHg FINDINGS -------- Sinus rhythm. This was a technically adequate study. The left ventricular size is normal. There is mild concentric left ventricular hypertrophy. Overa ll left ventricular systolic function is low-normal with, an EF between 50 - 55 %. The right ventricle is normal in size. LA is moderately dilated 34-39 ml/m2 The right atrium is normal in size. Contrast study was performed with 2 iv injections of 8 ccs of agitated normal saline, at rest, and wi th cough. Negative saline bubbles study. No shunt noted Trace to mild aortic regurgitation. Mild mitral regurgitation is present. Mild tricuspid regurgitation present. Right ventricular systolic pressure is normal at < 35 mmHg. Trace/mild (physiologic) pulmonic regurgitation. The aortic root size is normal. IVC Not well visulized. There is no pericardial effusion. CONCLUSIONS -------- 1. The left ventricular size is normal. 2. There is mild concentric left ventricular hypertrophy. 3. Overall left ventricular systolic function is low-normal with, an EF between 50 - 55 %. 4. LA is moderately dilated 34-39 ml/m2 5. Contrast study was performed with 2 iv injections of 8 ccs of agitated normal saline, at rest, and with cough. 6. Negative saline bubbles study. No shunt noted 7. Trace to mild aortic regurgitation. 8. Mild mitral regurgitation is present. 9. Mild tricuspid regurgitation present. 10. Trace/mild (physiologic) pulmonic regurgitation. 11. There is no pericardial effusion. CMM PROGRAMMER: Radha Arriaga RDCS
[2021-03-05] MEDS: ENOXAPARIN 40 MG/0.4 ML SYRINGE SQ SCH (12:51)
[2021-03-05] MEDS: FOLIC ACID 1 MG TAB PO SCH (12:51)
[2021-03-05] MEDS: PANTOPRAZOLE 40 MG TABLET PO SCH (12:51)
[2021-03-05] MEDS: cycloSPORINE 0.05% OPHTH 0.4 ML DROPERETTE BOTH EYES SCH ×2 (12:52→23:49)
[2021-03-05] MEDS: metFORMIN 500 MG TAB PO SCH ×2 (12:52→21:15)
[2021-03-05] MEDS: CLOPIDOGREL 75 MG TAB PO SCH (12:52)
[2021-03-05] MEDS: OXYBUTYNIN XL 5 MG TAB.ER.24 PO SCH (12:52)
[2021-03-05] MEDS: CALCIUM CARB-VIT D 500 MG-5 MCG TAB PO SCH (12:53)
[2021-03-05 13:04] LABS: Glucose,Whole Blood 120 mg/dL (75-99)
--- NOTE | 2021-03-05 14:44 | US ---
EXAMINATION TYPE: US carotid duplex BILAT DATE OF EXAM: 03/05/2021 COMPARISON: NONE CLINICAL HISTORY: cerebellar stroke. Stroke with right side weakness/numbness EXAM MEASUREMENTS: RIGHT: Peak Systolic Velocity (PSV) cm/sec ----- Right CCA: 103 ----- Right ICA: 67.7 ----- Right ECA: 83.7 ICA/CCA ratio: 0.66 RIGHT: End Diastole cm/sec ----- Right CCA: 17.8 ----- Right ICA: 19.0 ----- Right ECA: 11.3 LEFT: Peak Systolic Velocity (PSV) cm/sec ----- Left CCA: 89.1 ----- Left ICA: 85.0 ----- Left ECA: 78.2 ICA/CCA ratio: 0.95 LEFT: End Diastole cm/sec ----- Left CCA: 14.3 ----- Left ICA: 11.0 ----- Left ECA: 8.92 VERTEBRALS (direction of flow): Right Vertebral: Antegrade Left Vertebral: Antegrade Rhythm: Normal No elevated velocities IMPRESSION: 1. No significant hemodynamic Criteria for Assigning % of Stenosis / Diameter reduction (Estimation based on the indirect measurements of the internal carotid artery velocities (ICA PSV). 1. Normal (no stenosis)=ICA PSV < 125 cm/s: ratio < 2.0: ICA EDV<40 cm/s. 2. Less than 50% stenosis=ICA PSV < 125 cm/s: ratio < 2.0: ICA EDV<40 cm/s. 3. 50 to 69% stenosis=ICA PSV of 125 to 230 cm/s: ration 2.0 ? 4.0: ICA EDV 40-100 cm/s. 4. Greater than 70% stenosis to near occlusion= ICA PSV > 230 cm/s: ratio > 4.0: ICA EDV > 100 cm/s. 5. Near occlusion= ICA PSV velocities may be low or undetectable: variable ratio and ICA EDV. 6. Total occlusion=unable to detect flow.
--- NOTE | 2021-03-05 16:35 | P.HPIM ---
History of Present Illness H&P Date: 03/05/21 Chief Complaint: Dizzy This is a very pleasant 76-year-old patient of Dr. Kim. Chronic stable medical conditions include diabetes, GERD, hypertension, hyperlipidemia, chronic kidney disease depression. Patient recently had right arm/shoulder weakness for which she started doing therapy at [facility]. Day before yesterday when she got up the car to going psychotherapy she started getting very dizzy. She is falling sideways. Anyway managed to get inside. Therapy could not be completed. Patient was sent down to the ER. In the ER patient had a computed tomography scan of the brain. Unremarkable. She was discharged with Antivert. She continued to feel dizzy. Trouble walking. No change in speech. No headache. No change in vision. Some unsteadiness of the left arm. Presented back to the ER. Denies any ear symptoms. No fever no chills. As symptoms progressed to get worse. Including nausea. Patient remains to be rather dizzy. Especially with movement. Review of systems: GEN.: None EYES: None HEENT: None NECK: None RESPIRATORY: None CARDIOVASCULAR: None GASTROINTESTINAL: None GENITOURINARY: None MUSCULOSKELETAL: None LYMPHATICS: None HEMATOLOGICAL: None PSYCHIATRY: None NEUROLOGICAL: As above Past medical history to include: Diabetes, GERD, hypertension, hyperlipidemia, CK D, depression Social history: Lives alone. Used to work with [employer] previously. No smoking or alcohol. Family history: Reviewed, noncontributory to presentation Physical examination: VITAL SIGNS: 99.3, 94, 18, 169/84, 99% room air upon presentation GENERAL: BMI 28, sitting up in bed, awake, bit tired. EYES: Pupils equal. Conjunctiva normal. HEENT: External appearance of nose and ears normal, oral cavity grossly normal. NECK: JVD not raised; masses not palpable. HEART: First and second heart sounds are normal; no edema. LUNGS: Respiratory rate normal; clear to auscultation. ABDOMEN: Soft, nontender, liver spleen not palpable, no masses palpable. PSYCH: Alert and oriented x3; mood and affect normal. MUSCULOSKELETAL:No Clubbing/cyanosis;muscles-grossly intact. Evidence of OA NEUROLOGICAL: Cranial nerves grossly intact; no facial asymmetry, left passpointing, left dysdiadochokinesia, no nystagmus. Body falling to the right. LYMPHATICS: No lymph nodes palpable in the axilla and neck INVESTIGATIONS, reviewed in the clinical context: White count 11.1 hemoglobin 13.9 platelets 346 potassium 4.8 BUN 23 creatinine 0.76. Glucose 231 Troponin I 0.014, 0.016, 0.019 LDL 77 UA: Trace protein Coronavirus [PCR]: Not detected EKG tracing personally reviewed by me-left bundle-branch block. Rate 71 CT angiogram head and neck: Unremarkable 2-D echocardiogram: Contrast study negative for bubble/no shunt noted. EF 50- 55% [place] of the brain without contrast: Large about 4.5 cm area of acute ischemia in the left cerebellum. Very mild mass effect upon the fourth ventricle. Diffuse DJD and nonspecific white matter changes. Carotid Doppler: Unremarkable Assessment and plan: -Acute severe left cerebellar stroke with symptoms starting over 48 hours ago. Patient still very unsteady not even able to sit up. Patient will need inpatient rehab and therapy. Telemetry to rule out any underlying arrhythmia. Aspirin. Lipitor 40 mg. Neurology consultation. PTOT. -Diabetes mellitus type 2, oral hypoglycemic Follow Accu-Chek. Glucophage 5 mg in the morning and thousand milligrams evening. -GERD Omeprazole -Essential hypertension Increase [id number] mg a day, -Hyperlipidemia Increased dose of Lipitor to 40 mg daily at bedtime -Chronic urinary stress incontinence Detrol LA 4 mg a day Aspirin, increase Cozaar to 50 mg a day. Add chlorthalidone 25 mg day. Increase Lipitor to 40 mg. PTOT. Patient will need inpatient rehab. Home medications resumed. Subcu Lovenox. Neurology consultation. Care was discussed with the patient. Questions answered. Given the complexity and severity of patient's condition expect the patient to be in the hospital at least for 2 overnights Past Medical History Past Medical History: Diabetes Mellitus, GERD/Reflux, Hyperlipidemia, Hypertension, Renal Disease Additional Past Medical History / Comment(s): CKD stage 2-3 History of Any Multi-Drug Resistant Organisms: None Reported Past Surgical History: Hysterectomy Past Anesthesia/Blood Transfusion Reactions: No Reported Reaction Past Psychological History: Depression Smoking Status: Never smoker Past Alcohol Use History: None Reported Past Drug Use History: None Reported Medications and Allergies Home Medications Medication Instructions Recorded Confirmed Type Aspirin EC [Ecotrin] 81 mg PO DAILY 08/18/15 03/04/21 History Atorvastatin [Lipitor] 20 mg PO DAILY 08/18/15 03/04/21 History Calcium Carbonate/Vitamin D3 1 tab PO DAILY 08/18/15 03/04/21 History [Calcium 600-Vit D3 400 Caplet] Cod Liver Oil 2 cap PO DAILY 08/18/15 03/04/21 History Cyanocobalamin (Vitamin B-12) 5,000 mcg PO MOWEFR 08/18/15 03/04/21 History [Vitamin B12] Folic Acid 0.4 mg PO DAILY 08/18/15 03/04/21 History Losartan [Cozaar] 25 mg PO DAILY #30 tab 08/18/15 03/04/21 Rx Omeprazole 20 mg PO Q48H 08/18/15 03/04/21 History Tolterodine Tartrate [Detrol LA] 4 mg PO DAILY 08/18/15 03/04/21 History Vitamin E (Dl,Tocopheryl Acet) 400 unit PO DAILY 08/18/15 03/04/21 History [Vitamin E] metFORMIN HCL [Glucophage] 500 mg PO DAILY 08/18/15 03/04/21 History Meclizine [Antivert] 25 mg PO TID #20 tab 03/03/21 03/04/21 Rx Multivit-Min/Iron/Folic/Lutein 1 tab PO DAILY 03/04/21 03/04/21 History [Centrum Silver Women Tablet] cycloSPORINE [Restasis] 1 applicator BOTH EYES BID 03/04/21 03/04/21 History metFORMIN HCL [Glucophage] 1,000 mg PO HS 03/04/21 03/04/21 History Allergies Allergy/AdvReac Type Severity Reaction Status Date / Time Sulfa (Sulfonamide Allergy Unknown Verified 03/04/21 21:53 Antibiotics) Physical Exam Vitals: Vital Signs Temp Pulse Pulse Resp BP BP Pulse Ox 03/05/21 15:00 98.2 F 81 16 165/70 95 03/05/21 14:00 70 18 03/05/21 08:00 70 18 03/05/21 07:12 98.7 F 71 18 154/79 95 03/05/21 07:00 98.4 F 70 18 174/82 99 03/05/21 05:42 67 18 151/72 97 03/05/21 03:20 68 18 141/75 96 03/05/21 01:00 68 18 143/83 97 03/04/21 22:00 66 18 171/89 97 03/04/21 18:55 99.3 F 94 18 169/84 99 Intake and Output 03/05/21 03/05/21 03/05/21 06:59 14:59 22:59 Intake Total 300 Balance 300 Intake: Oral 300 Other: Voiding Method Toilet # Voids 1 Weight 69.4 kg Results CBC & Chem 7: 03/04/21 21:19 03/04/21 21:19 Labs: Abnormal Lab Results - Last 24 Hours (Table) 03/04/21 03/04/21 03/04/21 Range/Units 21:19 21:19 21:19 WBC 11.1 H (3.8-10.6) k/uL Neutrophils # 9.1 H (1.3-7.7) k/uL Sodium 136 L (137-145) mmol/L BUN 23 H (7-17) mg/dL Glucose 231 H (74-99) mg/dL POC Glucose (mg/dL) (75-99) mg/dL AST 37 H (14-36) U/L Alkaline Phosphatase 143 H (38-126) U/L Urine Protein Trace H (Negative) 03/05/21 Range/Units 12:50 WBC (3.8-10.6) k/uL Neutrophils # (1.3-7.7) k/uL Sodium (137-145) mmol/L BUN (7-17) mg/dL Glucose (74-99) mg/dL POC Glucose (mg/dL) 120 H (75-99) mg/dL AST (14-36) U/L Alkaline Phosphatase (38-126) U/L Urine Protein (Negative) Thrombosis Risk Factor Assmnt - Choose All That Apply Any of the Below Risk Factors Present?: Yes Each Factor Represents 1 point: Obesity (BMI >25) Other Risk Factors: Yes Each Risk Factor Represents 3 Points: Age 75 years or older Other congenital or acquired thrombophilia - If yes, enter type in comment: No Thrombosis Risk Factor Assessment Total Risk Factor Score: 4 Thrombosis Risk Factor Assessment Level: Moderate Risk
[2021-03-05] MEDS ORDERED: CHLORTHALIDONE 25 MG TAB PO SCH (16:45)
[2021-03-05 16:49] LABS: Glucose,Whole Blood 208 mg/dL (75-99)
[2021-03-05 17:09] LABS: Folate, Serum >20.00 ng/mL (4.40-31.00)
--- NOTE | 2021-03-05 18:38 | XR ---
EXAMINATION: XR chest 2V DATE AND TIME: 03/05/2021 5:10 PM CLINICAL INDICATION: PHH; Stroke TECHNIQUE: Departmental protocol COMPARISON: 03/03/2021 FINDINGS: EKG leads. The lungs are clear. The pleural spaces are negative. The cardiac silhouette is not enlarged. The remainder of the mediastinal silhouette is unremarkable. The skeletal structures and soft tissues are negative for acute findings. IMPRESSION: NO ACUTE PROCESS.
[2021-03-05 20:42] LABS: Glucose,Whole Blood 144 mg/dL (75-99)
[2021-03-05 20:51] LABS: Estimated Average Glucose UNC
[2021-03-05] MEDS ORDERED: MELATONIN 3 MG TABLET PO PRN (21:00)
[2021-03-05] MEDS: CHLORTHALIDONE 25 MG TAB PO SCH (21:15)
[2021-03-05] MEDS: ATORVASTATIN 40 MG TAB PO SCH (21:15)
--- NOTE | 2021-03-06 05:48 | P.CONS ---
History of Present Illness - Chief Complaint Gait ataxia - History of Present Illness I had the opportunity to see patient for inpatient rehab consultation with regard. Patient admitted to [facility] March 04 with vertigo, ataxia, nausea, emesis, blood pressure changes. Seen by neurology, Dr. Ashford who diagnosed new vertigo. Carotid Doppler done. Angiogram CT demonstrates left cerebellar changes as well as diffuse degenerative change. PT reports supervision for bed mobility but minimal assistance for transfers and gait 8 feet with roller walker. OT prescribed. Previous functional history as elicited from patient: 76-year-old right-handed white female who is single lives in one floor home with basement, alone. Describes independent with cooking, laundry, driving, tub bath and gait without device. PCP Dr. Kim. Denies tobacco or alcohol. Review of Systems Review of systems: ENT: Dizziness. Eyes: Denies discharge or photophobia. Cardiac: Denies chest pain or palpitation. Pulmonary: Denies cough or shortness of breath. Breast: Denies discharge or lumps. Gastrointestinal: Denies nausea, emesis, constipation, diarrhea. Genitourinary: Denies discharge or frequency. Musculoskeletal: Denies muscle or bone aches. Neurologic: Gait unsteadiness and ataxia. Endocrine: Denies shakes or sweats. Oncology: Denies cancers. Dermatologic: Denies rash, itching, pruritus. ALLERGY/immunology: Denies sneezes, rashes. 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 History of Any Multi-Drug Resistant Organisms: None Reported Past Surgical History: Hysterectomy Past Anesthesia/Blood Transfusion Reactions: No Reported Reaction Past Psychological History: Depression Smoking Status: Never smoker Past Alcohol Use History: None Reported Past Drug Use History: None Reported Medications and Allergies Home Medications Medication Instructions Recorded Confirmed Type Aspirin EC [Ecotrin] 81 mg PO DAILY 08/18/15 03/04/21 History Atorvastatin [Lipitor] 20 mg PO DAILY 08/18/15 03/04/21 History Calcium Carbonate/Vitamin D3 1 tab PO DAILY 08/18/15 03/04/21 History [Calcium 600-Vit D3 400 Caplet] Cod Liver Oil 2 cap PO DAILY 08/18/15 03/04/21 History Cyanocobalamin (Vitamin B-12) 5,000 mcg PO MOWEFR 08/18/15 03/04/21 History [Vitamin B12] Folic Acid 0.4 mg PO DAILY 08/18/15 03/04/21 History Losartan [Cozaar] 25 mg PO DAILY #30 tab 08/18/15 03/04/21 Rx Omeprazole 20 mg PO Q48H 08/18/15 03/04/21 History Tolterodine Tartrate [Detrol LA] 4 mg PO DAILY 08/18/15 03/04/21 History Vitamin E (Dl,Tocopheryl Acet) 400 unit PO DAILY 08/18/15 03/04/21 History [Vitamin E] metFORMIN HCL [Glucophage] 500 mg PO DAILY 08/18/15 03/04/21 History Meclizine [Antivert] 25 mg PO TID #20 tab 03/03/21 03/04/21 Rx Multivit-Min/Iron/Folic/Lutein 1 tab PO DAILY 03/04/21 03/04/21 History [Centrum Silver Women Tablet] cycloSPORINE [Restasis] 1 applicator BOTH EYES BID 03/04/21 03/04/21 History metFORMIN HCL [Glucophage] 1,000 mg PO HS 03/04/21 03/04/21 History Allergies Allergy/AdvReac Type Severity Reaction Status Date / Time Sulfa (Sulfonamide Allergy Unknown Verified 03/04/21 21:53 Antibiotics) Physical Exam Vitals: Vital Signs Temp Pulse Pulse Resp BP BP Pulse Ox 03/06/21 04:35 99.6 F 78 20 166/68 96 03/05/21 23:47 99.3 F 81 20 163/71 96 03/05/21 20:00 99.2 F 82 20 131/70 94 L 03/05/21 16:00 81 16 03/05/21 15:00 98.2 F 81 16 165/70 95 03/05/21 14:00 70 18 03/05/21 08:00 70 18 03/05/21 07:12 98.7 F 71 18 154/79 95 03/05/21 07:00 98.4 F 70 18 174/82 99 Intake and Output 03/05/21 03/05/21 03/06/21 14:59 22:59 06:59 Intake Total 300 Output Total 500 Balance 300 -500 Intake: Oral 300 Output: Urine 500 Other: Voiding Method Toilet Toilet # Voids 1 1 Weight 69.4 kg Skin: Atrophic, intact. General: Medium build and comfortable appearance. Head: Normocephalic, atraumatic. Eyes: Symmetric. Pupils equal round. Ears: Symmetric. Hearing within normal limits. Mouth: Clear. Neck: Supple. Carotid without bruit. Cardiac: Regular rate and rhythm. Lungs: Clear anteriorly and posteriorly. Abdomen: Soft active nontender. Extremities: Normal tone. Neurological: Mental status: Alert, cooperative, pleasant. Cranial nerves: Symmetric facial tone and trapezius. Motor: Normal strength and isolation all 4 limbs. Sensation: Intact throughout. DTRs: Symmetric and equal throughout. Mobility: Reports requires physical assist for sitting and standing due to balance problems. Results CBC & Chem 7: 03/04/21 21:19 03/04/21 21:19 Labs: Abnormal Lab Results - Last 24 Hours (Table) 03/05/21 03/05/21 03/05/21 Range/Units 12:50 16:47 20:41 POC Glucose (mg/dL) 120 H 208 H 144 H (75-99) mg/dL Assessment and Plan (1) Ataxia Current Visit: Yes Status: Acute Code(s): R27.0 - ATAXIA, UNSPECIFIED SNOMED Code(s): 42725771 (2) CVA (cerebral vascular accident) Current Visit: Yes Status: Acute Code(s): I63.9 - CEREBRAL INFARCTION, UNSPECIFIED SNOMED Code(s): 904882976 (3) Hypertension, poor control Current Visit: Yes Status: Acute Code(s): I10 - ESSENTIAL (PRIMARY) HYPERTENSION SNOMED Code(s): 986272857 (4) Nausea & vomiting Current Visit: Yes Status: Acute Code(s): R11.2 - NAUSEA WITH VOMITING, UNSPECIFIED SNOMED Code(s): 46915404 (5) Vertigo Current Visit: Yes Status: Acute Code(s): R42 - DIZZINESS AND GIDDINESS SNOMED Code(s): 630085585 Plan: Comments and plan: At this time PT ongoing and safety concerns noted. Overweight OT note. Discussed possible inpatient rehab with patient. Insurance will however review and require that patient needs admission requirements. Patient may be on observation at this time and so may not be medically intensive enough for inpatient rehab.
[2021-03-06 06:27] LABS: Glucose,Whole Blood 141 mg/dL (75-99)
[2021-03-06] MEDS: LOSARTAN 50 MG TAB PO SCH (08:30)
[2021-03-06] MEDS: FOLIC ACID 1 MG TAB PO SCH (08:30)
[2021-03-06] MEDS: metFORMIN 500 MG TAB PO SCH ×2 (08:30→19:54)
[2021-03-06] MEDS: CLOPIDOGREL 75 MG TAB PO SCH (08:31)
[2021-03-06] MEDS: ASPIRIN 81 MG PO SCH (08:31)
[2021-03-06] MEDS: MULTIVITAMINS, THERA 1 EACH TAB PO SCH (08:31)
[2021-03-06] MEDS: VITAMIN E (DL,TOCOPHERYL ACET) 400 UNIT (180 MG) CAP PO SCH (08:31)
[2021-03-06] MEDS: ENOXAPARIN 40 MG/0.4 ML SYRINGE SQ SCH (08:31)
[2021-03-06] MEDS: OXYBUTYNIN XL 5 MG TAB.ER.24 PO SCH (08:31)
[2021-03-06] MEDS: CALCIUM CARB-VIT D 500 MG-5 MCG TAB PO SCH (08:31)
[2021-03-06] MEDS: cycloSPORINE 0.05% OPHTH 0.4 ML DROPERETTE BOTH EYES SCH ×2 (08:32→22:57)
[2021-03-06] MEDS ORDERED: NON FORMULARY DRUG (Aspirin Ec 81 MG Tablet.Dr) PO SCH (09:00)
[2021-03-06 11:43] LABS: Glucose,Whole Blood 181 mg/dL (75-99)
[2021-03-06] MEDS: CYANOCOBALAMIN 500 MCG TAB PO SCH (16:21)
[2021-03-06 16:34] LABS: Glucose,Whole Blood 139 mg/dL (75-99)
--- NOTE | 2021-03-06 17:34 | P.PN ---
Progress Note - Text Progress Note Date: 03/06/21 Chief Complaint: Dizzy This is a very pleasant 76-year-old patient of Dr. Kim. Chronic stable medical conditions include diabetes, GERD, hypertension, hyperlipidemia, chronic kidney disease depression. Patient recently had right arm/shoulder weakness for which she started doing therapy at [facility]. Day before yesterday when she got up the car to going psychotherapy she started getting very dizzy. She is falling sideways. Anyway managed to get inside. Therapy could not be completed. Patient was sent down to the ER. In the ER patient had a computed tomography scan of the brain. Unremarkable. She was discharged with Antivert. She continued to feel dizzy. Trouble walking. No change in speech. No headache. No change in vision. Some unsteadiness of the left arm. Presented back to the ER. Denies any ear symptoms. No fever no chills. As symptoms progressed to get worse. Including nausea. Patient remains to be rather dizzy. Especially with movement. Admitted with acute cerebellar stroke. March 06: Patient still having significant dizziness and balance problems. PTOT of the case. Patient is on telemetry. Not yet reported. Discussed with Dr. Glynn from neurology. Given the acuteness of symptoms and severity Will watch the patient before she goes to rehab. Review of systems: Was done for constitutional, cardiovascular, GI, pulmonary. Neurology relevant finding as above Active Medications Acetaminophen (Acetaminophen Tab 325 Mg Tab) 650 mg PO Q6HR PRN PRN Reason: Pain Alprazolam (Alprazolam 0.25 Mg Tab) 0.25 mg PO Q6HR PRN PRN Reason: Anxiety Aspirin (Aspirin 81 Mg) 81 mg PO DAILY [facility] Last Admin: 03/06/21 08:31 Dose: 81 mg Documented by: Atorvastatin Calcium (Atorvastatin 40 Mg Tab) 40 mg PO [facility] Last Admin: 03/05/21 21:15 Dose: 40 mg Documented by: Calcium Carbonate (Calcium Carb-Vit D 500 Mg-5 Mcg Tab) 1 each PO DAILY [facility] Last Admin: 03/06/21 08:31 Dose: 1 each Documented by: Calcium Carbonate/Glycine (Calcium Carbonate 500 Mg Chewable) 1,000 mg PO Q4HR PRN PRN Reason: Dyspepsia Chlorthalidone (Chlorthalidone 25 Mg Tab) 25 mg PO [facility] Last Admin: 03/05/21 21:15 Dose: 25 mg Documented by: Clopidogrel Bisulfate (Clopidogrel 75 Mg Tab) 75 mg PO DAILY [facility] Last Admin: 03/06/21 08:31 Dose: 75 mg Documented by: Cyanocobalamin (Cyanocobalamin 500 Mcg Tab) 5,000 mcg PO MOWEFR [facility] Last Admin: 03/06/21 16:21 Dose: Not Given Documented by: Cyclosporine (Cyclosporine 0.05% Ophth 0.4 Ml Droperette) 1 drops BOTH EYES BID [facility] Last Admin: 03/06/21 08:32 Dose: 1 drops Documented by: Enoxaparin Sodium (Enoxaparin 40 Mg/0.4 Ml Syringe) 40 mg SQ DAILY [facility] Last Admin: 03/06/21 08:31 Dose: 40 mg Documented by: Folic Acid (Folic Acid 1 Mg Tab) 0.5 mg PO DAILY [facility] Last Admin: 03/06/21 08:30 Dose: 0.5 mg Documented by: Sodium Chloride (Saline 0.9%) 1,000 mls @ 10 mls/hr IV .Q24H [facility] Last Admin: 03/05/21 23:49 Dose: Not Given Documented by: Lactulose (Lactulose 20 Gm/30 Ml Cup) 20 gm PO DAILY PRN PRN Reason: Constipation Losartan Potassium (Losartan 50 Mg Tab) 50 mg PO DAILY [facility] Last Admin: 03/06/21 08:30 Dose: 50 mg Documented by: Melatonin (Melatonin 3 Mg Tablet) 3 mg PO HS PRN PRN Reason: Insomnia Metformin HCl (Metformin 500 Mg Tab) 500 mg PO DAILY [facility] Last Admin: 03/06/21 08:30 Dose: 500 mg Documented by: Metformin HCl (Metformin 500 Mg Tab) 1,000 mg PO HS [facility] Last Admin: 03/05/21 21:15 Dose: 1,000 mg Documented by: Multivitamins (Multivitamins, Thera 1 Each Tab) 1 each PO DAILY [facility] Last Admin: 03/06/21 08:31 Dose: 1 each Documented by: Naloxone HCl (Naloxone 0.4 Mg/Ml 1 Ml Vial) 0.2 mg IV Q2M PRN PRN Reason: Opioid Reversal Oxybutynin Chloride (Oxybutynin Xl 5 Mg Tab.Er.24) 10 mg PO DAILY [facility] Last Admin: 03/06/21 08:31 Dose: 10 mg Documented by: Pantoprazole Sodium (Pantoprazole 40 Mg Tablet) 40 mg PO Q48H [facility] Last Admin: 03/05/21 12:51 Dose: 40 mg Documented by: Vitamin E (Vitamin E (Dl,Tocopheryl Acet) 400 Unit (180 Mg) Cap) 400 unit PO DAILY [facility] Last Admin: 03/06/21 08:31 Dose: 400 unit Documented by: Past medical history to include: Diabetes, GERD, hypertension, hyperlipidemia, CK D, depression Social history: Lives alone. Used to work with [employer] previously. No smoking or alcohol. Family history: Reviewed, noncontributory to presentation Physical examination: VITAL SIGNS: 98, 82, 18, 139/73, 94% room air GENERAL: Reclining in bed, awake, tired. EYES: Pupils equal. Conjunctiva normal. HEENT: External appearance of nose and ears normal, oral cavity grossly normal. NECK: JVD not raised; masses not palpable. HEART: First and second heart sounds are normal; no edema. LUNGS: Respiratory rate normal; clear to auscultation. ABDOMEN: Soft, nontender, liver spleen not palpable, no masses palpable. PSYCH: Alert and oriented x3; mood and affect normal. MUSCULOSKELETAL:No Clubbing/cyanosis;muscles-grossly intact. Evidence of OA NEUROLOGICAL: Cranial nerves grossly intact; no facial asymmetry, left passpointing, left dysdiadochokinesia, no nystagmus. Body falling to the right. INVESTIGATIONS, reviewed in the clinical context: HbA1c: 8.4 White count 11.1 hemoglobin 13.9 platelets 346 potassium 4.8 BUN 23 creatinine 0.76. Glucose 231 Troponin I 0.014, 0.016, 0.019 LDL 77 UA: Trace protein Coronavirus [PCR]: Not detected EKG tracing personally reviewed by me-left bundle-branch block. Rate 71 CT angiogram head and neck: Unremarkable 2-D echocardiogram: Contrast study negative for bubble/no shunt noted. EF 50- 55% [place] of the brain without contrast: Large about 4.5 cm area of acute ischemia in the left cerebellum. Very mild mass effect upon the fourth ventricle. Diffuse DJD and nonspecific white matter changes. Carotid Doppler: Unremarkable Assessment and plan: -Acute severe left cerebellar stroke with symptoms starting over 48 hours ago. Patient still very unsteady not even able to sit up. Patient will need inpatient rehab and therapy. Telemetry to rule out any underlying arrhythmia.: Symptoms slow to respond Aspirin. Lipitor 40 mg. Neurology PTOT. -Diabetes mellitus type 2, oral hypoglycemic Follow Accu-Chek and sliding scale. Glucophage 500 mg in the morning and thousand milligrams evening. -GERD Omeprazole -Essential hypertension Cozaar 50 mg a day, -Hyperlipidemia Increased dose of Lipitor to 40 mg daily at bedtime -Chronic urinary stress incontinence Detrol LA 4 mg a day Aspirin, Cozaar chlorthalidone Lipitor PTOT. will need inpatient rehab. Given the severity of symptoms we will watch the patient over the weekend for any arrhythmias.
[2021-03-06] MEDS: ATORVASTATIN 40 MG TAB PO SCH (19:53)
[2021-03-06 19:57] LABS: Glucose,Whole Blood 124 mg/dL (75-99)
[2021-03-06] MEDS: SODIUM CHLORIDE 0.9% 1,000 ML IV SCH (19:58)
[2021-03-06] MEDS: CHLORTHALIDONE 25 MG TAB PO SCH (22:57)
--- NOTE | 2021-03-07 01:10 | P.PN ---
Subjective Progress Note Date: 03/06/21 Patient was seen for a follow-up. Patient is laying in the bed comfortably. Patient states then she is moves around, feels dizzy. Denies any new numbness or tingling. Patient's feels her balance is slightly better now. No new focal symptoms. Telemetry monitoring showing sinus rhythm, with ST depression. Some couplets and triplets. Objective - Vital Signs Vital signs: Vital Signs Temp 98.5 F 03/06/21 08:00 Pulse 86 03/06/21 08:00 Resp 18 03/06/21 08:00 BP 161/75 03/06/21 08:00 Pulse Ox 94 L 03/06/21 08:00 Intake & Output 03/05/21 03/06/21 03/06/21 18:59 06:59 18:59 Intake Total 300 118 Output Total 500 Balance 300 -500 118 Weight 69.4 kg Intake: Oral 300 118 Output: Urine 500 Other: Voiding Method Toilet # Voids 1 - Exam Patient is alert and awake. Speech and language functions are normal. Cranial nerves only significant for slightly decreased left nasolabial fold. Muscle strength showed mild left drift but no pronation. Strength is normal. Sensory equal. Cerebellar functions revealed less ataxia for [id number] on the left. Patient states her balance has improved. - Labs CBC & Chem 7: 03/04/21 21:19 03/04/21 21:19 Labs: Abnormal Lab Results - Last 24 Hours (Table) 03/05/21 03/05/21 03/05/21 Range/Units 12:50 16:47 20:41 POC Glucose (mg/dL) 120 H 208 H 144 H (75-99) mg/dL 03/06/21 Range/Units 06:25 POC Glucose (mg/dL) 141 H (75-99) mg/dL Assessment and Plan Assessment: * Acute left cerebellar CVA. * Hypertension * Diabetes * Hyperlipidemia Plan: * MRI of the brain confirmed acute ischemic stroke about 4.5 cm area in the left cerebellum with very mild mass effect upon the fourth ventricle. Ventricular dilation likely related to generalized degenerative change given findings are similar to prior computed tomography scan of head from 08/18/2015. Diffuse degenerative and nonspecific white matter changes most typical of remote ischemia. I reviewed MRI on the computer and agree with the findings. * Patient placed on dual antiplatelet medication. Suggest continue DAP for 21 days, then stop aspirin and continue Plavix indefinitely. Discussed with Dr. Dietrich. * Carotid Doppler revealed no significant stenosis in either ICA. Antegrade flow in both vertebral arteries. * Fasting lipid panel with cholesterol 147, LDL 77, HDL 47 and triglycerides 109. Continue Lipitor 40 mg daily. * Hemoglobin A1c 8.4. Optimize control of diabetes to target A1c <7.0 * 2-D echo revealed normal left-ventricular size. Mild concentric LVH. Left ventricular systolic function is low normal with EF between 50-55%. Left atrium is moderately dilated. Contrast study was performed with bubble study, which was negative for PFO. Mild AR. * Suggest event monitor at the time of discharge to rule out paroxysmal atrial fibrillation. * Blood pressure is better controlled. Target blood pressure <130/80 * B12 861, folate > 20, TSH 0.613 normal. * PT OT. Patient may be a candidate for inpatient rehabilitation. * Dr. Amos Will resume neurology service in the morning.
[2021-03-07 06:39] LABS: Glucose,Whole Blood 184 mg/dL (75-99)
[2021-03-07] MEDS: metFORMIN 500 MG TAB PO SCH ×2 (09:01→21:00)
[2021-03-07] MEDS: MULTIVITAMINS, THERA 1 EACH TAB PO SCH (09:01)
[2021-03-07] MEDS: OXYBUTYNIN XL 5 MG TAB.ER.24 PO SCH (09:01)
[2021-03-07] MEDS: FOLIC ACID 1 MG TAB PO SCH (09:01)
[2021-03-07] MEDS: CALCIUM CARB-VIT D 500 MG-5 MCG TAB PO SCH (09:01)
[2021-03-07] MEDS: ENOXAPARIN 40 MG/0.4 ML SYRINGE SQ SCH (09:01)
[2021-03-07] MEDS: CLOPIDOGREL 75 MG TAB PO SCH (09:01)
[2021-03-07] MEDS: ASPIRIN 81 MG PO SCH (09:01)
[2021-03-07] MEDS: LOSARTAN 50 MG TAB PO SCH (09:01)
[2021-03-07] MEDS: VITAMIN E (DL,TOCOPHERYL ACET) 400 UNIT (180 MG) CAP PO SCH (09:02)
[2021-03-07] MEDS: cycloSPORINE 0.05% OPHTH 0.4 ML DROPERETTE BOTH EYES SCH ×2 (09:02→21:00)
[2021-03-07 11:34] LABS: Glucose,Whole Blood 171 mg/dL (75-99)
[2021-03-07] MEDS: PANTOPRAZOLE 40 MG TABLET PO SCH (12:12)
--- NOTE | 2021-03-07 15:44 | P.PN ---
Subjective Progress Note Date: 03/07/21 The patient is a 76-year-old female who is seen in neurologic follow- up on March 07, 2021, via telemedicine. The patient reports that she continues to feel dizzy, when she gets out of bed. She feels her symptoms are unchanged since yesterday. They have improved since her initial hospital day. Oriented to the nurse at the bedside, the patient is unable to stand up even to transfer to the bedside chair. The nurse reports that the patient has not "bearing weight". She is reportedly "unable to get her feet underneath her". The patient herself reports that she came to the emergency department a few days ago with complaints of dizziness and vertigo. She reports that she was seen in the emergency department and was discharged home. She says her symptoms continued to worsen and so she came back to the hospital. CT angiogram of the head and neck revealed no signs of significant stenosis or large vessel occlusion. MRI of the brain revealed a large, 4.5 cm area of acute ischemia involving the left cerebral hemisphere. Objective - Vital Signs Vital signs: Vital Signs Temp 98.5 F 03/07/21 08:00 Pulse 88 03/07/21 08:00 Resp 20 03/07/21 08:00 BP 152/76 03/07/21 08:00 Pulse Ox 96 03/07/21 08:00 Intake & Output 03/06/21 03/07/21 03/07/21 18:59 06:59 18:59 Intake Total 118 118 Balance 118 118 Intake: Oral 118 118 Other: Voiding Method Toilet # Voids 1 - Exam Gen.: The patient is reclining in the bed. She is well-nourished, well- developed and in no acute distress. HEENT: Head is atraumatic, normocephalic. Fundus not visualized. There is no scleral icterus. Mucous membranes are moist. Neck: Supple Extremities: Without edema Neurological examination Mental status: The patient is awake, alert and oriented 3. Her speech is clear. There is no dysarthria or aphasia. Cranial nerves: Pupils are equal at 3 mm and reactive. Visual garcia are full to confrontation. Extraocular movements are intact. There is no nystagmus. Facial sensation is intact. There is no facial asymmetry. Hearing is grossly intact. Uvula and palate are midline. Shoulder shrug is symmetric. Tongue protrudes midline. Motor: Strength is 5/5 throughout. Coordination: There is mild left-sided ataxia with finger to nose testing. [id number] testing is intact bilaterally. - Labs CBC & Chem 7: 03/04/21 21:19 03/04/21 21:19 Labs: Abnormal Lab Results - Last 24 Hours (Table) 03/06/21 03/06/21 03/06/21 Range/Units 10:00 11:42 16:32 POC Glucose (mg/dL) 181 H 139 H (75-99) mg/dL Hemoglobin A1c 8.4 H (0.0-6.0) % 03/06/21 03/07/21 Range/Units 19:42 05:53 POC Glucose (mg/dL) 124 H 184 H (75-99) mg/dL Hemoglobin A1c (0.0-6.0) % Assessment and Plan Assessment: 1. Acute left cerebellar infarct with ataxia and dizziness 2. There is no evidence of significant stenosis of the cerebral vasculature, as an explanation for this infarct 3. Telemetry has shown no signs of atrial fibrillation. 4. History of hypertension 5. History of diabetes mellitus Plan: 1. Although the patient does have stroke risk factors including, diabetes mellitus, hypertension and hyperlipidemia, would consider discharge home with either 30 day Holter monitor or loop recorder 2. Continue dual antiplatelet therapy and high-dose statin 3. Would consider discharge to acute rehabilitation facility Time with Patient: Less than 30 (spent 25 minutes with patient via telemedicine)
--- NOTE | 2021-03-07 15:57 | CT ---
EXAMINATION TYPE: CT brain wo con DATE OF EXAM: 03/07/2021 COMPARISON: 03/03/2021 HISTORY: increased dizziness TECHNIQUE: CT scan of the head performed without contrast CT DLP: 1099.4 mGycm Automated exposure control for dose reduction was used. FINDINGS: There is large size low-attenuation in the left cerebellum which has progressed since 03/04/2021. Ther e is mild area of low attenuation in the medial aspect of the right cerebellum which is not significa ntly changed. Focal Low-attenuation is also the left sveta. Mild brain volume loss and chronic microvascular ischemic changes which are not significantly changed . No hemorrhage, midline shift or mass effect appreciated. No acute orbital, osseous or soft tissue abnormalities appreciated. Minimal atherosclerotic calcifications are seen in the intracranial internal carotid arteries. IMPRESSION: 1. LOW ATTENUATING LARGE SIZE LEFT CEREBELLAR CHANGES, LIKELY REFLECTIVE OF PROGRESSIVE CHANGES RELAT ED TO RECENT ISCHEMIC INFARCT. 2. LOW ATTENUATING FOCAL AREA IN THE LEFT SVETA, MAY BE REFLECTIVE OF PROGRESSIVE CHANGES RELATED TO R ECENT ISCHEMIC INFARCT. 3. NO ACUTE INTRACRANIAL HEMORRHAGE, MIDLINE SHIFT OR MASS EFFECT. 4. CHRONIC SUPRATENTORIAL PARENCHYMAL CHANGES DESCRIBED IN BODY OF REPORT. NO SIGNIFICANT CHANGE. CLINICAL CORRELATION RECOMMENDED. THE NEED FOR A NONCONTRAST ENHANCED MRI OF THE BRAIN SHOULD BE DETE RMINED ON CLINICAL BASIS.
[2021-03-07 16:25] LABS: Glucose,Whole Blood 182 mg/dL (75-99)
--- NOTE | 2021-03-07 16:31 | P.PN ---
Progress Note - Text Progress Note Date: 03/07/21 Chief Complaint: Dizzy This is a very pleasant 76-year-old patient of Dr. Kim. Chronic stable medical conditions include diabetes, GERD, hypertension, hyperlipidemia, chronic kidney disease depression. Patient recently had right arm/shoulder weakness for which she started doing therapy at [facility]. Day before yesterday when she got up the car to going psychotherapy she started getting very dizzy. She is falling sideways. Anyway managed to get inside. Therapy could not be completed. Patient was sent down to the ER. In the ER patient had a computed tomography scan of the brain. Unremarkable. She was discharged with Antivert. She continued to feel dizzy. Trouble walking. No change in speech. No headache. No change in vision. Some unsteadiness of the left arm. Presented back to the ER. Denies any ear symptoms. No fever no chills. As symptoms progressed to get worse. Including nausea. Patient remains to be rather dizzy. Especially with movement. Admitted with acute cerebellar stroke. March 06: Patient still having significant dizziness and balance problems. PTOT of the case. Patient is on telemetry. Not yet reported. Discussed with Dr. Glynn from neurology. Given the acuteness of symptoms and severity Will watch the patient before she goes to rehab. March 07: Tired. Still off balance. Coordination better on the left side. Decreased appetite. Encouraged oral intake. On aspirin and Plavix. Patient still total assist. Based on slow response clinically. Discussed with Dr. Glynn from neurology. Repeat computed tomography scan ordered today. Still shows a large cerebellar infarct. Possible also in the patricia. We will order ZEKE. Telemetry has not shown any atrial fibrillation. Review of systems: Was done for constitutional, cardiovascular, GI, pulmonary. Neurology relevant finding as above Active Medications Acetaminophen (Acetaminophen Tab 325 Mg Tab) 650 mg PO Q6HR PRN PRN Reason: Pain Alprazolam (Alprazolam 0.25 Mg Tab) 0.25 mg PO Q6HR PRN PRN Reason: Anxiety Aspirin (Aspirin 81 Mg) 81 mg PO DAILY [facility] Last Admin: 03/07/21 09:01 Dose: 81 mg Documented by: Atorvastatin Calcium (Atorvastatin 40 Mg Tab) 40 mg PO HS [facility] Last Admin: 03/06/21 19:53 Dose: 40 mg Documented by: Calcium Carbonate (Calcium Carb-Vit D 500 Mg-5 Mcg Tab) 1 each PO DAILY [facility] Last Admin: 03/07/21 09:01 Dose: 1 each Documented by: Calcium Carbonate/Glycine (Calcium Carbonate 500 Mg Chewable) 1,000 mg PO Q4HR PRN PRN Reason: Dyspepsia Chlorthalidone (Chlorthalidone 25 Mg Tab) 25 mg PO HS [facility] Last Admin: 03/06/21 22:57 Dose: Not Given Documented by: Clopidogrel Bisulfate (Clopidogrel 75 Mg Tab) 75 mg PO DAILY [facility] Last Admin: 03/07/21 09:01 Dose: 75 mg Documented by: Cyanocobalamin (Cyanocobalamin 500 Mcg Tab) 5,000 mcg PO MOWEFR [facility] Last Admin: 03/06/21 16:21 Dose: Not Given Documented by: Cyclosporine (Cyclosporine 0.05% Ophth 0.4 Ml Droperette) 1 drops BOTH EYES BID [facility] Last Admin: 03/07/21 09:02 Dose: 1 drops Documented by: Enoxaparin Sodium (Enoxaparin 40 Mg/0.4 Ml Syringe) 40 mg SQ DAILY [facility] Last Admin: 03/07/21 09:01 Dose: 40 mg Documented by: Folic Acid (Folic Acid 1 Mg Tab) 0.5 mg PO DAILY [facility] Last Admin: 03/07/21 09:01 Dose: 0.5 mg Documented by: Sodium Chloride (Saline 0.9%) 1,000 mls @ 10 mls/hr IV .Q24H [facility] Last Admin: 03/06/21 19:58 Dose: Not Given Documented by: Lactulose (Lactulose 20 Gm/30 Ml Cup) 20 gm PO DAILY PRN PRN Reason: Constipation Losartan Potassium (Losartan 50 Mg Tab) 50 mg PO DAILY [facility] Last Admin: 03/07/21 09:01 Dose: 50 mg Documented by: Melatonin (Melatonin 3 Mg Tablet) 3 mg PO HS PRN PRN Reason: Insomnia Metformin HCl (Metformin 500 Mg Tab) 500 mg PO DAILY [facility] Last Admin: 03/07/21 09:01 Dose: 500 mg Documented by: Metformin HCl (Metformin 500 Mg Tab) 1,000 mg PO HS [facility] Last Admin: 03/06/21 19:54 Dose: 1,000 mg Documented by: Multivitamins (Multivitamins, Thera 1 Each Tab) 1 each PO DAILY [facility] Last Admin: 03/07/21 09:01 Dose: 1 each Documented by: Naloxone HCl (Naloxone 0.4 Mg/Ml 1 Ml Vial) 0.2 mg IV Q2M PRN PRN Reason: Opioid Reversal Oxybutynin Chloride (Oxybutynin Xl 5 Mg Tab.Er.24) 10 mg PO DAILY [facility] Last Admin: 03/07/21 09:01 Dose: 10 mg Documented by: Pantoprazole Sodium (Pantoprazole 40 Mg Tablet) 40 mg PO Q48H [facility] Last Admin: 03/07/21 12:12 Dose: 40 mg Documented by: Vitamin E (Vitamin E (Dl,Tocopheryl Acet) 400 Unit (180 Mg) Cap) 400 unit PO DAILY [facility] Last Admin: 03/07/21 09:02 Dose: 400 unit Documented by: Past medical history to include: Diabetes, GERD, hypertension, hyperlipidemia, CK D, depression Social history: Lives alone. Used to work with [employer] previously. No smoking or alcohol. Family history: Reviewed, noncontributory to presentation Physical examination: VITAL SIGNS: 98.3, 87, 20, 134/63, 96% room air GENERAL: Reclining in bed, awake, tired. EYES: Pupils equal. Conjunctiva normal. HEENT: External appearance of nose and ears normal, oral cavity grossly normal. NECK: JVD not raised; masses not palpable. HEART: First and second heart sounds are normal; no edema. LUNGS: Respiratory rate normal; clear to auscultation. ABDOMEN: Soft, nontender, liver spleen not palpable, no masses palpable. PSYCH: Alert and oriented x3; mood and affect normal. MUSCULOSKELETAL:No Clubbing/cyanosis;muscles-grossly intact. Evidence of OA NEUROLOGICAL: Cranial nerves grossly intact; no facial asymmetry, left passpointing, left dysdiadochokinesia, no nystagmus. Body falling to the right. [Some improvement in the left-sided cerebellar signs. INVESTIGATIONS, reviewed in the clinical context: Computed tomography scan of the brain without contrast: Previous infarct seen. Area in patricia noted to. HbA1c: 8.4 White count 11.1 hemoglobin 13.9 platelets 346 potassium 4.8 BUN 23 creatinine 0.76. Glucose 231 Troponin I 0.014, 0.016, 0.019 LDL 77 UA: Trace protein Coronavirus [PCR]: Not detected EKG tracing personally reviewed by me-left bundle-branch block. Rate 71 CT angiogram head and neck: Unremarkable 2-D echocardiogram: Contrast study negative for bubble/no shunt noted. EF 50- 55% [place] of the brain without contrast: Large about 4.5 cm area of acute ischemia in the left cerebellum. Very mild mass effect upon the fourth ventricle. Diffuse DJD and nonspecific white matter changes. Carotid Doppler: Unremarkable Assessment and plan: -Acute severe left cerebellar stroke with symptoms starting over 48 hours ago. Patient still very unsteady not even able to sit up. Patient will need inpatient rehab and therapy. Telemetry to rule out any underlying arrhythmia.: Symptoms slow to respond Still requiring full assist. Aspirin/Plavix. Lipitor 40 mg. Neurology PTOT. Repeat computed tomography scan today showing area in the patricia. ZEKE to rule out cardiac source. -Diabetes mellitus type 2, oral hypoglycemic: Uncontrolled with hyperglycemia Follow Accu-Chek and sliding scale. Glucophage 500 mg in the morning and thousand milligrams evening. -Acute medical debility from stroke. Patient full assist. PTOT -GERD Omeprazole -Rule out embolic source of stroke. Consult cardiology for ZEKE. -Essential hypertension Cozaar 50 mg a day, chlorthalidone -Hyperlipidemia Lipitor to 40 mg daily at bedtime -Chronic urinary stress incontinence Detrol LA 4 mg a day ZEKE per cardiology. Other medications to continue. Consult cardiology.
[2021-03-07] MEDS: CHLORTHALIDONE 25 MG TAB PO SCH (21:00)
[2021-03-07] MEDS: ATORVASTATIN 40 MG TAB PO SCH (21:00)
[2021-03-07 21:40] LABS: Glucose,Whole Blood 229 mg/dL (75-99)
[2021-03-07] MEDS: SODIUM CHLORIDE 0.9% 1,000 ML IV SCH (22:48)
[2021-03-08 06:42] LABS: Glucose,Whole Blood 168 mg/dL (75-99)
[2021-03-08] MEDS: VITAMIN E (DL,TOCOPHERYL ACET) 400 UNIT (180 MG) CAP PO SCH (08:44)
[2021-03-08] MEDS: CLOPIDOGREL 75 MG TAB PO SCH (08:44)
[2021-03-08] MEDS: MULTIVITAMINS, THERA 1 EACH TAB PO SCH (08:44)
[2021-03-08] MEDS: LOSARTAN 50 MG TAB PO SCH (08:44)
[2021-03-08] MEDS: FOLIC ACID 1 MG TAB PO SCH (08:44)
[2021-03-08] MEDS: ASPIRIN 81 MG PO SCH (08:44)
[2021-03-08] MEDS: OXYBUTYNIN XL 5 MG TAB.ER.24 PO SCH (08:44)
[2021-03-08] MEDS: metFORMIN 500 MG TAB PO SCH ×2 (08:44→17:18)
[2021-03-08] MEDS: ENOXAPARIN 40 MG/0.4 ML SYRINGE SQ SCH (08:45)
[2021-03-08] MEDS: cycloSPORINE 0.05% OPHTH 0.4 ML DROPERETTE BOTH EYES SCH ×2 (08:45→21:02)
[2021-03-08] MEDS: CALCIUM CARB-VIT D 500 MG-5 MCG TAB PO SCH (08:45)
--- NOTE | 2021-03-08 11:22 | P.PN ---
Subjective Progress Note Date: 03/08/21 The patient is a 76-year-old female who is seen in neurologic follow- up on March 07, 2021, via telemedicine. The patient reports that she continues to feel dizzy, when she gets out of bed. She feels her symptoms are unchanged since yesterday. They have improved since her initial hospital day. Oriented to the nurse at the bedside, the patient is unable to stand up even to transfer to the bedside chair. The nurse reports that the patient has not "bearing weight". She is reportedly "unable to get her feet underneath her". The patient herself reports that she came to the emergency department a few days ago with complaints of dizziness and vertigo. She reports that she was seen in the emergency department and was discharged home. She says her symptoms continued to worsen and so she came back to the hospital. CT angiogram of the head and neck revealed no signs of significant stenosis or large vessel occlusion. MRI of the brain revealed a large, 4.5 cm area of acute ischemia involving the left cerebral hemisphere. The patient is seen in neurologic follow-up on March 08, 2021, via telemedicine. The patient reports feeling slightly better today. She says physical therapy c margarita to the room and there were attempting to get out of bed however, a doctor came into the room and so the patient did not get up with physical therapy. She says she was able to sit on the edge of the bed. The patient did have a repeat head CT which reveals a large left cerebellar infarct. There is also a report of possible left pontine infarct. Objective - Vital Signs Vital signs: Vital Signs Temp 98.7 F 03/08/21 08:00 Pulse 79 03/08/21 08:00 Resp 20 03/08/21 08:00 BP 149/76 03/08/21 08:00 Pulse Ox 93 L 03/08/21 08:00 Intake & Output 03/07/21 03/08/21 03/08/21 18:59 06:59 18:59 Intake Total 236 480 Output Total 500 400 Balance -264 80 Intake: Oral 236 480 Output: Urine 500 400 Other: Voiding Method Toilet # Voids 1 # Bowel Movements 0 - Exam Gen.: The patient is reclining in the bed. She is well-nourished, well- developed and in no acute distress. HEENT: Head is atraumatic, normocephalic. Fundus not visualized. There is no scleral icterus. Mucous membranes are moist. Neck: Supple Extremities: Without edema Neurological examination Mental status: The patient is awake, alert and oriented 3. Her speech is clear. There is no dysarthria or aphasia. Cranial nerves: Pupils are equal at 3 mm and reactive. Visual garcia are full to confrontation. Extraocular movements are intact. There is no nystagmus. Facial sensation is intact. There is no facial asymmetry. Hearing is grossly intact. Uvula and palate are midline. Shoulder shrug is symmetric. Tongue protrudes midline. Motor: Strength is 5/5 throughout. Coordination: Finger to nose testing is intact. Rapid alternating movements are intact. Ohmi-hs-wpll testing is intact bilaterally. - Labs CBC & Chem 7: 03/04/21 21:19 03/04/21 21:19 Labs: Abnormal Lab Results - Last 24 Hours (Table) 03/07/21 03/07/21 03/07/21 Range/Units 11:32 16:24 20:35 POC Glucose (mg/dL) 171 H 182 H 229 H (75-99) mg/dL 03/08/21 Range/Units 06:08 POC Glucose (mg/dL) 168 H (75-99) mg/dL Assessment and Plan Assessment: 1. Acute left cerebellar infarct with ataxia and dizziness, improvement in neurologic status today. CT scan images have been personally reviewed. There does appear to be hypodensity in the left patricia 2. There is no evidence of significant stenosis of the cerebral vasculature, as an explanation for this infarct 3. Telemetry has shown no signs of atrial fibrillation. 4. History of hypertension 5. History of diabetes mellitus Plan: 1. Agree with transesophageal echocardiogram 2. Although the patient does have stroke risk factors including, diabetes mellitus, hypertension and hyperlipidemia, would consider discharge home with either 30 day Holter monitor or loop recorder 3. Continue dual antiplatelet therapy and high-dose statin 4. Would consider discharge to acute rehabilitation facility Time with Patient: Less than 30 (spent 20 minutes with the patient via telemedicine)
[2021-03-08 11:45] LABS: Glucose,Whole Blood 191 mg/dL (75-99)
--- NOTE | 2021-03-08 12:01 | P.CRDCN ---
History of Present Illness Consult date: 03/08/21 History of present illness: This is Saman Shipley NP dictating a consult on this patient on behalf of Dr. Pickard. The patient was interviewed and examined. HPI: [Patient is a pleasant 76-year-old female who initially presented to the hospital with complaints of dizziness and ataxia. Patient was subsequently found to have a left cerebellar stroke. She was subsequently admitted for continued treatment and evaluation. Cardiology was consulted for a possible ZEKE secondary to investigation of the origins of the stroke. Patient has a past medical history that includes diabetes, GERD, hypertension, hyperlipidemia, chronic kidney disease, and depression. She has a past surgical history includes hysterectomy. She reports she is a never smoker, and denies current alcohol or illicit substance use. Today patient continues to report dizziness with standing. She does demonstrate normal sinus rhythm on telemetry, and has no atrial fibrillation noted. Patient does not have a history of atrial fibrillation either.] ROS: [No fever, chills, or rigors] [no cough, phlegm, or expectoration] [no nausea, vomiting, or diarrhea] [no hematuria, dysuria] [no musculoskelatal complaints] [no seizures] [no skin lesions] EXAMINATION: GENERAL: Well-appearing, well-nourished and in no acute distress. NECK: Supple without JVD or thyromegaly. LUNGS: Breath sounds clear to auscultation bilaterally. Respiration equal and unlabored. No wheezes, rales or rhonchi. HEART: Regular rate and rhythm without murmurs, rubs or gallops. S1 and S2 heard. EXTREMITIES: Normal range of motion, no edema. No clubbing or cyanosis. Peripheral pulses intact and strong. REVIEW OF LABS, ECG & MEDICAL DATA: LABS: White count 11.1, hemoglobin 13.9, platelets 346, sodium 136, potassium 4.8, B1 23, creatinine 0.76, hemoglobin A1c 8.4, serial troponins 3-0.014, 0.016, 0.019, triglycerides 109, cholesterol 147, LDL 77.7, HDL 47.5, vitamin B12 61, folate greater than 20, TSH 0.613 EKG: Normal sinus rhythm with left bundle branch block IMAGING: CT angiogram dated 03/04/2021 demonstrates no significant abnormality of the CTA of the head or neck; echocardiogram dated 03/05/2021 demonstrates normal left ventricular size, mild concentric left ventricular hypertrophy, EF between 50-55%, LA moderately dilated 34-39, negative saline bubble study with no shunt noted, trace to mild aortic regurgitation, mild mitral regurgitation, mild tricuspid regurgitation, mild/trace physiologic pulmonic regurgitation, no pericardial effusion; MRI of the brain dated 03/05/2021 demonstrates a large approximately 4.5 cm area of acute ischemia in the left cerebellum very mild mass effect upon the fourth ventricle. Ventricular dilation likely related to generalized degenerative change given findings are similar to the prior computed tomography scan of the head dated 08/18/2015. Diffuse degenerative and nonspecific white matter changes most typical remote ischemia; carotid Doppler dated 03/05/2021 demonstrates no significant hemodynamic abnormality; chest x- ray dated 03/05/2021 demonstrates no acute process; CT of the brain dated 03/07/2021 demonstrates low attenuating large-size left cerebellar changes, likely reflective of progressive changes related to recent ischemic infarct. Low attenuating focal area in the left patricia, may be reflective of progressive changes related to recent ischemic infarct. No acute intracranial hemorrhage, midline shift or mass effect. Chronic supratentorial parenchymal changes as described in body of report. No significant change. VITALS: Temp 98.3, pulse 78, respirations 20, blood pressure 142/70, O2 saturation 95% on room air IMPRESSION: [CVA, left cerebellum and patricia Ataxia Vertigo Hypertension] PLAN: [No history of afib, none noted on telemetry Will order ZEKE study If ZEKE negative, will need a loop recorder.] Thank you for the consult and allowing us to participate in the care of this patient. The patient has been seen and evaluated. Plan of care has been reviewed and agreed upon by Dr. Pickard. 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 History of Any Multi-Drug Resistant Organisms: None Reported Past Surgical History: Hysterectomy Past Anesthesia/Blood Transfusion Reactions: No Reported Reaction Past Psychological History: Depression Smoking Status: Never smoker Past Alcohol Use History: None Reported Past Drug Use History: None Reported Medications and Allergies Home Medications Medication Instructions Recorded Confirmed Type Aspirin EC [Ecotrin] 81 mg PO DAILY 08/18/15 03/04/21 History Atorvastatin [Lipitor] 20 mg PO DAILY 08/18/15 03/04/21 History Calcium Carbonate/Vitamin D3 1 tab PO DAILY 08/18/15 03/04/21 History [Calcium 600-Vit D3 400 Caplet] Cod Liver Oil 2 cap PO DAILY 08/18/15 03/04/21 History Cyanocobalamin (Vitamin B-12) 5,000 mcg PO MOWEFR 08/18/15 03/04/21 History [Vitamin B12] Folic Acid 0.4 mg PO DAILY 08/18/15 03/04/21 History Losartan [Cozaar] 25 mg PO DAILY #30 tab 08/18/15 03/04/21 Rx Omeprazole 20 mg PO Q48H 08/18/15 03/04/21 History Tolterodine Tartrate [Detrol LA] 4 mg PO DAILY 08/18/15 03/04/21 History Vitamin E (Dl,Tocopheryl Acet) 400 unit PO DAILY 08/18/15 03/04/21 History [Vitamin E] metFORMIN HCL [Glucophage] 500 mg PO DAILY 08/18/15 03/04/21 History Meclizine [Antivert] 25 mg PO TID #20 tab 03/03/21 03/04/21 Rx Multivit-Min/Iron/Folic/Lutein 1 tab PO DAILY 03/04/21 03/04/21 History [Centrum Silver Women Tablet] cycloSPORINE [Restasis] 1 applicator BOTH EYES BID 03/04/21 03/04/21 History metFORMIN HCL [Glucophage] 1,000 mg PO HS 03/04/21 03/04/21 History Allergies Allergy/AdvReac Type Severity Reaction Status Date / Time Sulfa (Sulfonamide Allergy Unknown Verified 03/04/21 21:53 Antibiotics) Physical Exam Vitals: Vital Signs Temp Pulse Resp BP Pulse Ox 03/08/21 08:00 98.7 F 79 20 149/76 93 L 03/08/21 04:56 97 F L 71 16 133/72 94 L 03/08/21 02:35 16 03/07/21 23:58 98.7 F 90 16 136/74 95 03/07/21 20:44 98.4 F 87 16 144/79 94 L 03/07/21 16:39 98.8 F 74 20 155/73 96 03/07/21 11:47 98.3 F 87 20 134/63 96 Intake and Output 03/07/21 03/08/21 03/08/21 22:59 06:59 14:59 Intake Total 358 240 Output Total 500 400 Balance -142 -160 Intake: Oral 358 240 Output: Urine 500 400 Other: Voiding Method Toilet Toilet # Bowel Movements 0 Results 03/04/21 21:19 03/04/21 21:19 Current Medications Generic Name Dose Route Start Last Admin Trade Name Freq PRN Reason Stop Dose Admin Acetaminophen 650 mg 03/04/21 22:39 Acetaminophen Tab 325 Mg Tab PO Q6HR PRN Pain Alprazolam 0.25 mg 03/05/21 12:08 Alprazolam 0.25 Mg Tab PO Q6HR PRN Anxiety Aspirin 81 mg 03/06/21 09:00 03/08/21 08:44 Aspirin 81 Mg PO 81 mg DAILY MARY ANN Administration Atorvastatin Calcium 40 mg 03/05/21 21:00 03/07/21 21:00 Atorvastatin 40 Mg Tab PO 40 mg HS [facility] Administration Calcium Carbonate 1 each 03/05/21 12:15 03/08/21 08:45 Calcium Carb-Vit D 500 Mg-5 Mcg Tab PO 1 each DAILY [facility] Administration Calcium Carbonate/Glycine 1,000 mg 03/05/21 12:08 Calcium Carbonate 500 Mg Chewable PO Q4HR PRN Dyspepsia Chlorthalidone 25 mg 03/05/21 21:00 03/07/21 21:00 Chlorthalidone 25 Mg Tab PO 25 mg HS MARY ANN Administration Clopidogrel Bisulfate 75 mg 03/05/21 11:00 03/08/21 08:44 Clopidogrel 75 Mg Tab PO 75 mg DAILY MARY ANN Administration Cyanocobalamin 5,000 mcg 03/06/21 12:07 03/06/21 16:21 Cyanocobalamin 500 Mcg Tab PO Not Given MOWEFR MARY ANN Cyclosporine 1 drops 03/05/21 12:15 03/08/21 08:45 Cyclosporine 0.05% Ophth 0.4 Ml Droperette BOTH EYES 1 drops BID MARY ANN Administration Enoxaparin Sodium 40 mg 03/05/21 12:15 03/08/21 08:45 Enoxaparin 40 Mg/0.4 Ml Syringe SQ 40 mg DAILY MARY ANN Administration Folic Acid 0.5 mg 03/05/21 12:15 03/08/21 08:44 Folic Acid 1 Mg Tab PO 0.5 mg DAILY MARY ANN Administration Sodium Chloride 1,000 mls @ 10 mls/hr 03/04/21 22:45 03/07/21 22:48 Saline 0.9% IV Not Given .Q24H MARY ANN Lactulose 20 gm 03/05/21 12:08 Lactulose 20 Gm/30 Ml Cup PO DAILY PRN Constipation Losartan Potassium 50 mg 03/06/21 09:00 03/08/21 08:44 Losartan 50 Mg Tab PO 50 mg DAILY MARY ANN Administration Melatonin 3 mg 03/05/21 21:00 Melatonin 3 Mg Tablet PO HS PRN Insomnia Metformin HCl 500 mg 03/05/21 12:15 03/08/21 08:44 Metformin 500 Mg Tab PO 500 mg DAILY MARY ANN Administration Metformin HCl 1,000 mg 03/05/21 21:00 03/07/21 21:00 Metformin 500 Mg Tab PO 1,000 mg HS MARY ANN Administration Multivitamins 1 each 03/06/21 09:00 03/08/21 08:44 Multivitamins, Thera 1 Each Tab PO 1 each DAILY MARY ANN Administration Naloxone HCl 0.2 mg 03/05/21 12:08 Naloxone 0.4 Mg/Ml 1 Ml Vial IV Q2M PRN Opioid Reversal Oxybutynin Chloride 10 mg 03/05/21 12:15 03/08/21 08:44 Oxybutynin Xl 5 Mg Tab.Er.24 PO 10 mg DAILY MARY ANN Administration Pantoprazole Sodium 40 mg 03/05/21 12:15 03/07/21 12:12 Pantoprazole 40 Mg Tablet PO 40 mg Q48H MARY ANN Administration Vitamin E 400 unit 03/06/21 09:00 03/08/21 08:44 Vitamin E (Dl,Tocopheryl Acet) 400 Unit (180 Mg) Cap PO 400 unit DAILY MARY ANN Administration Intake and Output 03/07/21 03/08/21 03/08/21 22:59 06:59 14:59 Intake Total 358 240 Output Total 500 400 Balance -142 -160 Intake: Oral 358 240 Output: Urine 500 400 Other: Voiding Method Toilet Toilet # Bowel Movements 0 03/04/21 21:19 03/04/21 21:19
--- NOTE | 2021-03-08 16:06 | P.PN ---
Progress Note - Text Progress Note Date: 03/08/21 Chief Complaint: Dizzy This is a very pleasant 76-year-old patient of Dr. Kim. Chronic stable medical conditions include diabetes, GERD, hypertension, hyperlipidemia, chronic kidney disease depression. Patient recently had right arm/shoulder weakness for which she started doing therapy at [facility]. Day before yesterday when she got up the car to going psychotherapy she started getting very dizzy. She is falling sideways. Anyway managed to get inside. Therapy could not be completed. Patient was sent down to the ER. In the ER patient had a computed tomography scan of the brain. Unremarkable. She was discharged with Antivert. She continued to feel dizzy. Trouble walking. No change in speech. No headache. No change in vision. Some unsteadiness of the left arm. Presented back to the ER. Denies any ear symptoms. No fever no chills. As symptoms progressed to get worse. Including nausea. Patient remains to be rather dizzy. Especially with movement. Admitted with acute cerebellar stroke. March 06: Patient still having significant dizziness and balance problems. PTOT of the case. Patient is on telemetry. Not yet reported. Discussed with Dr. Glynn from neurology. Given the acuteness of symptoms and severity Will watch the patient before she goes to rehab. March 07: Tired. Still off balance. Coordination better on the left side. Decreased appetite. Encouraged oral intake. On aspirin and Plavix. Patient still total assist. Based on slow response clinically. Discussed with Dr. Glynn from neurology. Repeat computed tomography scan ordered today. Still shows a large cerebellar infarct. Possible also in the patricia. We will order ZEKE. Telemetry has not shown any atrial fibrillation. March 08: Balance slightly better. Coordination in the left arm improving. Pending ZEKE tomorrow. Discussed with the patient. Appetite better Review of systems: Was done for constitutional, cardiovascular, GI, pulmonary. Neurology relevant finding as above Active Medications Acetaminophen (Acetaminophen Tab 325 Mg Tab) 650 mg PO Q6HR PRN PRN Reason: Pain Alprazolam (Alprazolam 0.25 Mg Tab) 0.25 mg PO Q6HR PRN PRN Reason: Anxiety Aspirin (Aspirin 81 Mg) 81 mg PO DAILY [facility] Last Admin: 03/08/21 08:44 Dose: 81 mg Documented by: Atorvastatin Calcium (Atorvastatin 40 Mg Tab) 40 mg PO HS [facility] Last Admin: 03/07/21 21:00 Dose: 40 mg Documented by: Calcium Carbonate (Calcium Carb-Vit D 500 Mg-5 Mcg Tab) 1 each PO DAILY [facility] Last Admin: 03/08/21 08:45 Dose: 1 each Documented by: Calcium Carbonate/Glycine (Calcium Carbonate 500 Mg Chewable) 1,000 mg PO Q4HR PRN PRN Reason: Dyspepsia Chlorthalidone (Chlorthalidone 25 Mg Tab) 25 mg PO HS [facility] Last Admin: 03/07/21 21:00 Dose: 25 mg Documented by: Clopidogrel Bisulfate (Clopidogrel 75 Mg Tab) 75 mg PO DAILY [facility] Last Admin: 03/08/21 08:44 Dose: 75 mg Documented by: Cyanocobalamin (Cyanocobalamin 500 Mcg Tab) 5,000 mcg PO MOWEFR [facility] Last Admin: 03/06/21 16:21 Dose: Not Given Documented by: Cyclosporine (Cyclosporine 0.05% Ophth 0.4 Ml Droperette) 1 drops BOTH EYES BID [facility] Last Admin: 03/08/21 08:45 Dose: 1 drops Documented by: Enoxaparin Sodium (Enoxaparin 40 Mg/0.4 Ml Syringe) 40 mg SQ DAILY [facility] Last Admin: 03/08/21 08:45 Dose: 40 mg Documented by: Folic Acid (Folic Acid 1 Mg Tab) 0.5 mg PO DAILY [facility] Last Admin: 03/08/21 08:44 Dose: 0.5 mg Documented by: Sodium Chloride (Saline 0.9%) 1,000 mls @ 10 mls/hr IV .Q24H [facility] Last Admin: 03/07/21 22:48 Dose: Not Given Documented by: Lactulose (Lactulose 20 Gm/30 Ml Cup) 20 gm PO DAILY PRN PRN Reason: Constipation Losartan Potassium (Losartan 50 Mg Tab) 50 mg PO DAILY [facility] Last Admin: 03/08/21 08:44 Dose: 50 mg Documented by: Melatonin (Melatonin 3 Mg Tablet) 3 mg PO HS PRN PRN Reason: Insomnia Metformin HCl (Metformin 500 Mg Tab) 500 mg PO DAILY [facility] Last Admin: 03/08/21 08:44 Dose: 500 mg Documented by: Metformin HCl (Metformin 500 Mg Tab) 1,000 mg PO HS [facility] Last Admin: 03/07/21 21:00 Dose: 1,000 mg Documented by: Multivitamins (Multivitamins, Thera 1 Each Tab) 1 each PO DAILY [facility] Last Admin: 03/08/21 08:44 Dose: 1 each Documented by: Naloxone HCl (Naloxone 0.4 Mg/Ml 1 Ml Vial) 0.2 mg IV Q2M PRN PRN Reason: Opioid Reversal Oxybutynin Chloride (Oxybutynin Xl 5 Mg Tab.Er.24) 10 mg PO DAILY [facility] Last Admin: 03/08/21 08:44 Dose: 10 mg Documented by: Pantoprazole Sodium (Pantoprazole 40 Mg Tablet) 40 mg PO Q48H [facility] Last Admin: 03/07/21 12:12 Dose: 40 mg Documented by: Vitamin E (Vitamin E (Dl,Tocopheryl Acet) 400 Unit (180 Mg) Cap) 400 unit PO DAILY [facility] Last Admin: 03/08/21 08:44 Dose: 400 unit Documented by: Past medical history to include: Diabetes, GERD, hypertension, hyperlipidemia, CK D, depression Social history: Lives alone. Used to work with [employer] previously. No smoking or alcohol. Family history: Reviewed, noncontributory to presentation Physical examination: VITAL SIGNS: 98.3, 78, 20, 142/70, 95% room air GENERAL: Reclining in bed, awake, EYES: Pupils equal. Conjunctiva normal. HEENT: External appearance of nose and ears normal, oral cavity grossly normal. NECK: JVD not raised; masses not palpable. HEART: First and second heart sounds are normal; no edema. LUNGS: Respiratory rate normal; clear to auscultation. ABDOMEN: Soft, nontender, liver spleen not palpable, no masses palpable. PSYCH: Alert and oriented x3; mood and affect normal. MUSCULOSKELETAL:No Clubbing/cyanosis;muscles-grossly intact. Evidence of OA NEUROLOGICAL: Cranial nerves grossly intact; no facial asymmetry, left passpointing, left dysdiadochokinesia, no nystagmus. Body falling to the right. [Some improvement in the left-sided cerebellar signs. INVESTIGATIONS, reviewed in the clinical context: Computed tomography scan of the brain without contrast: Previous infarct seen. Area in patricia noted to. HbA1c: 8.4 White count 11.1 hemoglobin 13.9 platelets 346 potassium 4.8 BUN 23 creatinine 0.76. Glucose 231 Troponin I 0.014, 0.016, 0.019 LDL 77 UA: Trace protein Coronavirus [PCR]: Not detected EKG tracing personally reviewed by me-left bundle-branch block. Rate 71 CT angiogram head and neck: Unremarkable 2-D echocardiogram: Contrast study negative for bubble/no shunt noted. EF 50- 55% Irion of the brain without contrast: Large about 4.5 cm area of acute ischemia in the left cerebellum. Very mild mass effect upon the fourth ventricle. Diffuse DJD and nonspecific white matter changes. Carotid Doppler: Unremarkable Assessment and plan: -Acute severe left cerebellar stroke with symptoms starting over 48 hours ago. Patient still very unsteady not even able to sit up. Patient will need inpatient rehab and therapy. Telemetry to rule out any underlying arrhythmia.: Symptoms slow to respond Still requiring full assist. Aspirin/Plavix. Lipitor 40 mg. Neurology PTOT. Repeat computed tomography scan today showing area in the patricia. ZEKE to rule out cardiac source. -Diabetes mellitus type 2, oral hypoglycemic: Uncontrolled with hyperglycemia Follow Accu-Chek and sliding scale. Increase Glucophage 1000 mg twice a day -Acute medical debility from stroke. Patient full assist. PTOT -GERD Omeprazole -Rule out embolic source of stroke. Consult cardiology for ZEKE. -Essential hypertension Cozaar 50 mg a day, chlorthalidone -Hyperlipidemia Lipitor to 40 mg daily at bedtime -Chronic urinary stress incontinence Detrol LA 4 mg a day ZEKE scheduled for tomorrow. Increase Glucophage 2000 mg twice a day. Discussed with the patient. Appetite better.
[2021-03-08 16:40] LABS: Glucose,Whole Blood 164 mg/dL (75-99)
[2021-03-08 20:37] LABS: Glucose,Whole Blood 182 mg/dL (75-99)
[2021-03-08] MEDS: ATORVASTATIN 40 MG TAB PO SCH (21:02)
[2021-03-08] MEDS: CHLORTHALIDONE 25 MG TAB PO SCH (21:02)
[2021-03-09] MEDS: SODIUM CHLORIDE 0.9% 1,000 ML IV SCH ×2 (00:03→12:06)
[2021-03-09 06:09] LABS: Glucose,Whole Blood 145 mg/dL (75-99)
[2021-03-09] MEDS: metFORMIN 500 MG TAB PO SCH ×2 (07:21→17:16)
[2021-03-09] MEDS ORDERED: fentaNYL (PF) 50 MCG/ML 2 ML AMP ONE (09:15)
[2021-03-09] MEDS ORDERED: SODIUM CHLORIDE 0.9% 500 ML 500 ML IV ONE (09:21)
[2021-03-09] MEDS: BENZOCAINE SPRAY 1 CAN MUCOUS MEM ONE ×2 (09:29→09:36)
[2021-03-09] MEDS ORDERED: fentaNYL (PF) 50 MCG/ML 2 ML AMP IV ONE (09:36)
[2021-03-09] MEDS ORDERED: MIDAZOLAM 2 MG/2 ML VIAL IV ONE ×2 (09:36→18:48)
[2021-03-09] MEDS: OXYBUTYNIN XL 5 MG TAB.ER.24 PO SCH (10:28)
[2021-03-09] MEDS: ENOXAPARIN 40 MG/0.4 ML SYRINGE SQ SCH (10:28)
[2021-03-09] MEDS: LOSARTAN 50 MG TAB PO SCH (10:29)
[2021-03-09] MEDS: cycloSPORINE 0.05% OPHTH 0.4 ML DROPERETTE BOTH EYES SCH ×2 (10:29→21:31)
[2021-03-09] MEDS: CLOPIDOGREL 75 MG TAB PO SCH (10:29)
[2021-03-09] MEDS: VITAMIN E (DL,TOCOPHERYL ACET) 400 UNIT (180 MG) CAP PO SCH (10:29)
[2021-03-09] MEDS: ASPIRIN 81 MG PO SCH (10:29)
[2021-03-09] MEDS: PANTOPRAZOLE 40 MG TABLET PO SCH (10:29)
[2021-03-09] MEDS: CALCIUM CARB-VIT D 500 MG-5 MCG TAB PO SCH (10:29)
[2021-03-09] MEDS: CHLORTHALIDONE 25 MG TAB PO SCH (10:29)
[2021-03-09] MEDS: FOLIC ACID 1 MG TAB PO SCH (10:29)
[2021-03-09] MEDS: MULTIVITAMINS, THERA 1 EACH TAB PO SCH (10:30)
--- NOTE | 2021-03-09 11:14 | ECHOT ---
TRANSESOPHAGEAL ECHOCARDIOGRAM INDICATION: TIA. Rule out cardiac source for thromboembolic phenomenon. PROCEDURE NOTE: After obtaining informed consent, transesophageal echocardiogram was performed in left lateral position using an Omniplane probe. Local and IV sedation were obtained using 2 mg of Versed and 25 mcg of fentanyl. Patient tolerated the procedure well without any obvious immediate complication. Two-D color M-mode Doppler and spectral analysis along with agitated saline contrast study has been performed. FINDINGS: 1. There is no intracardiac thrombus within the left atrial appendage, left atrium, right atrium, left ventricle. 2. Left ventricle has normal size and systolic function. 3. Mitral valve is anatomically normal. There is no evidence of mitral stenosis or regurgitation. 4. Aortic valve is a 3-leaflet valve. There is no evidence of aortic stenosis or regurgitation. The ascending aorta measures normally. Tricuspid valve shows trace tricuspid regurgitation. Interatrial septum: There is no evidence of [id number] shunt by color-flow Doppler or [id number] shunt by agitated saline contrast study. CONCLUSIONS: 1. No intracardiac thrombus. 2. No evidence of shunting across the interatrial septum. 3. Normal left ventricular function. MMODL / IJN: [id number] /
[2021-03-09 11:49] LABS: Glucose,Whole Blood 191 mg/dL (75-99)
--- NOTE | 2021-03-09 14:40 | P.DS ---
Providers Date of admission: 03/05/21 13:07 Expected date of discharge: 03/09/21 Attending physician: Gerson Dietrich Consults: 03/04/21 22:40 Consult Physician Urgent Consulting Provider: Christine Ashford Consult Reason/Comments: Vertigo Do you want consulting provider notified?: Yes 03/05/21 13:47 Consult Physician Routine Consulting Provider: Dionicio Concepcion Consult Reason/Comments: [facility] rehab/cerebellar stroke Do you want consulting provider notified?: Yes 03/07/21 16:31 Consult Physician Routine Consulting Provider: Edvin Pickard Consult Reason/Comments: ZEKE ; suspect embolic stroke Do you want consulting provider notified?: Yes Primary care physician: [facility] Course: Chief Complaint: Dizzy This is a very pleasant 76-year-old patient of Dr. iKm. Chronic stable medical conditions include diabetes, GERD, hypertension, hyperlipidemia, chronic kidney disease depression. Patient recently had right arm/shoulder weakness for which she started doing therapy at [facility]. Day before yesterday when she got up the car to going psychotherapy she started getting very dizzy. She is falling sideways. Anyway managed to get inside. Therapy could not be completed. Patient was sent down to the ER. In the ER patient had a computed tomography scan of the brain. Unremarkable. She was discharged with Antivert. She continued to feel dizzy. Trouble walking. No change in speech. No headache. No change in vision. Some unsteadiness of the left arm. Presented back to the ER. Denies any ear symptoms. No fever no chills. As symptoms progressed to get worse. Including nausea. Patient remains to be rather dizzy. Especially with movement. Admitted with acute cerebellar stroke. March 06: Patient still having significant dizziness and balance problems. PTOT of the case. Patient is on telemetry. Not yet reported. Discussed with Dr. Glynn from neurology. Given the acuteness of symptoms and severity Will watch the patient before she goes to rehab. March 07: Tired. Still off balance. Coordination better on the left side. Decreased appetite. Encouraged oral intake. On aspirin and Plavix. Patient still total assist. Based on slow response clinically. Discussed with Dr. Glynn from neurology. Repeat computed tomography scan ordered today. Still shows a large cerebellar infarct. Possible also in the patricia. We will order ZEKE. Telemetry has not shown any atrial fibrillation. March 08: Balance slightly better. Coordination in the left arm improving. Pending ZEKE tomorrow. Discussed with the patient. Appetite better March 09: Patient underwent ZEKE today. No embolic source found. Patient has abated [facility]. Discussed with patient. Patient will take aspirin for 3 more weeks and discontinue. Continue with Plavix. Given monitor is being arranged so patient can be hooked up and see if he can find underlying atrial fibrillation. Discussion and discharge planning more than 35 minutes Consultation: Dr. Denise Kinney from cardiology for ZEKE Dr. Glynn and colleagues from neurology Past medical history to include: Diabetes, GERD, hypertension, hyperlipidemia, CK D, depression Social history: Lives alone. Used to work with [employer] company previously. No smoking or alcohol. Family history: Reviewed, noncontributory to presentation Physical examination: VITAL SIGNS: 98, 90, 18, 140/74, 93% on room air GENERAL: Reclining in bed, awake, EYES: Pupils equal. Conjunctiva normal. HEENT: External appearance of nose and ears normal, oral cavity grossly normal. NECK: JVD not raised; masses not palpable. HEART: First and second heart sounds are normal; no edema. LUNGS: Respiratory rate normal; clear to auscultation. ABDOMEN: Soft, nontender, liver spleen not palpable, no masses palpable. PSYCH: Alert and oriented x3; mood and affect normal. MUSCULOSKELETAL:No Clubbing/cyanosis;muscles-grossly intact. Evidence of OA NEUROLOGICAL: Cranial nerves grossly intact; no facial asymmetry, left passpointing, left dysdiadochokinesia, no nystagmus. Body falling to the right. improvement in the left-sided cerebellar signs. INVESTIGATIONS, reviewed in the clinical context: ZEKE: Negative for any thrombus Computed tomography scan of the brain without contrast: Previous infarct seen. Area in patricia noted to. HbA1c: 8.4 White count 11.1 hemoglobin 13.9 platelets 346 potassium 4.8 BUN 23 creatinine 0.76. Glucose 231 Troponin I 0.014, 0.016, 0.019 LDL 77 UA: Trace protein Coronavirus [PCR]: Not detected EKG tracing personally reviewed by me-left bundle-branch block. Rate 71 CT angiogram head and neck: Unremarkable 2-D echocardiogram: Contrast study negative for bubble/no shunt noted. EF 50- 55% [place] of the brain without contrast: Large about 4.5 cm area of acute ischemia in the left cerebellum. Very mild mass effect upon the fourth ventricle. Diffuse DJD and nonspecific white matter changes. Carotid Doppler: Unremarkable Assessment and plan: -Acute severe left cerebellar stroke with symptoms starting over 48 hours ago. Aspirin/Plavix. DC aspirin after 3 weeks Lipitor 40 mg. Neurology outpatient follow-up PTOT. Repeat computed tomography scan today showing area in the patricia. ZEKE negative for embolic source. Event monitor being arranged to look for possible A. fib -Diabetes mellitus type 2, oral hypoglycemic: Uncontrolled with hyperglycemia Follow Accu-Chek and sliding scale. Increase Glucophage 1000 mg twice a day -Acute medical debility from stroke. Patient full assist. PTOT -GERD Omeprazole -Essential hypertension Cozaar 50 mg a day, chlorthalidone 25 mg -Hyperlipidemia Lipitor to 40 mg daily at bedtime -Chronic urinary stress incontinence Detrol LA 4 mg a day Disposition: [facility]/rehab Plan - Discharge Summary Discharge Rx Participant: No New Discharge Prescriptions: New Losartan [Cozaar] 50 mg PO DAILY tab Melatonin 3 mg PO HS PRN tablet PRN Reason: Insomnia Chlorthalidone [Hygroton] 25 mg PO HS tab Atorvastatin [Lipitor] 40 mg PO HS tab Clopidogrel [Plavix] 75 mg PO DAILY tab Acetaminophen Tab [Tylenol] 650 mg PO Q6HR PRN tab PRN Reason: Pain Continue Tolterodine Tartrate [Detrol LA] 4 mg PO DAILY Omeprazole 20 mg PO Q48H Cyanocobalamin (Vitamin B-12) [Vitamin B-12] 5,000 mcg PO MOWEFR Vitamin E (Dl,Tocopheryl Acet) [Vitamin E (400 Iu = 180 mg)] 400 unit PO DAILY Folic Acid 0.4 mg PO DAILY Calcium Carbonate/Vitamin D3 [Calcium 600-Vit D3 400 Caplet] 1 tab PO DAILY Cod Liver Oil 2 cap PO DAILY cycloSPORINE [Restasis] 1 applicator BOTH EYES BID Aspirin EC [Ecotrin Low Dose] 81 mg PO DAILY 21 Days #0 Multivit-Min/Iron/Folic/Lutein [Centrum Silver Women Tablet] 1 tab PO DAILY Changed metFORMIN HCL [Glucophage] 1,000 mg PO AC-BID #0 Discontinued Atorvastatin [Lipitor] 20 mg PO DAILY metFORMIN HCL [Glucophage] 500 mg PO DAILY Losartan [Cozaar] 25 mg PO DAILY #30 tab Meclizine [Antivert] 25 mg PO TID #20 tab Discharge Medication List Calcium Carbonate/Vitamin D3 [Calcium 600-Vit D3 400 Caplet] 1 tab PO DAILY 08/18/15 [History] Cod Liver Oil 2 cap PO DAILY 08/18/15 [History] Cyanocobalamin (Vitamin B-12) [Vitamin B-12] 5,000 mcg PO MOWEFR 08/18/15 [History] Folic Acid 0.4 mg PO DAILY 08/18/15 [History] Omeprazole 20 mg PO Q48H 08/18/15 [History] Tolterodine Tartrate [Detrol LA] 4 mg PO DAILY 08/18/15 [History] Vitamin E (Dl,Tocopheryl Acet) [Vitamin E (400 Iu = 180 mg)] 400 unit PO DAILY 08/18/15 [History] Multivit-Min/Iron/Folic/Lutein [Centrum Silver Women Tablet] 1 tab PO DAILY 03/04/21 [History] cycloSPORINE [Restasis] 1 applicator BOTH EYES BID 03/04/21 [History] Acetaminophen Tab [Tylenol] 650 mg PO Q6HR PRN tab 03/09/21 [Rx] Aspirin EC [Ecotrin Low Dose] 81 mg PO DAILY 21 Days #0 03/09/21 [Rx] Atorvastatin [Lipitor] 40 mg PO HS tab 03/09/21 [Rx] Chlorthalidone [Hygroton] 25 mg PO HS tab 03/09/21 [Rx] Clopidogrel [Plavix] 75 mg PO DAILY tab 03/09/21 [Rx] Losartan [Cozaar] 50 mg PO DAILY tab 03/09/21 [Rx] Melatonin 3 mg PO HS PRN tablet 03/09/21 [Rx] metFORMIN HCL [Glucophage] 1,000 mg PO AC-BID #0 03/09/21 [Rx] Follow up Appointment(s)/Referral(s): Edvin Pickard MD [STAFF PHYSICIAN] - 2 Weeks Tima Kim DO [Primary Care Provider] - 1-2 days Claudia Bush MD [Medical Doctor] - 2 Weeks Activity/Diet/Wound Care/Special Instructions: Event monitor
--- NOTE | 2021-03-09 15:43 | P.PN ---
Progress Note - Text Progress Note Date: 03/09/21 Chief Complaint: Dizzy This is a very pleasant 76-year-old patient of Dr. Kim. Chronic stable medical conditions include diabetes, GERD, hypertension, hyperlipidemia, chronic kidney disease depression. Patient recently had right arm/shoulder weakness for which she started doing therapy at [facility]. Day before yesterday when she got up the car to going psychotherapy she started getting very dizzy. She is falling sideways. Anyway managed to get inside. Therapy could not be completed. Patient was sent down to the ER. In the ER patient had a computed tomography scan of the brain. Unremarkable. She was discharged with Antivert. She continued to feel dizzy. Trouble walking. No change in speech. No headache. No change in vision. Some unsteadiness of the left arm. Presented back to the ER. Denies any ear symptoms. No fever no chills. As symptoms progressed to get worse. Including nausea. Patient remains to be rather dizzy. Especially with movement. Admitted with acute cerebellar stroke. March 06: Patient still having significant dizziness and balance problems. PTOT of the case. Patient is on telemetry. Not yet reported. Discussed with Dr. Glynn from neurology. Given the acuteness of symptoms and severity Will watch the patient before she goes to rehab. March 07: Tired. Still off balance. Coordination better on the left side. Decreased appetite. Encouraged oral intake. On aspirin and Plavix. Patient still total assist. Based on slow response clinically. Discussed with Dr. Glynn from neurology. Repeat computed tomography scan ordered today. Still shows a large cerebellar infarct. Possible also in the patricia. We will order ZEKE. Telemetry has not shown any atrial fibrillation. March 08: Balance slightly better. Coordination in the left arm improving. Pending ZEKE tomorrow. Discussed with the patient. Appetite better March 09: Patient underwent ZEKE today. No embolic source found. Patient has abated [facility]. Discussed with patient. Patient will take aspirin for 3 more weeks and discontinue. Continue with Plavix. Event monitor was arranged. I was then called this afternoon that cardiology is planning to place a loop monitor. Discharged held for today. Review of systems: Was done for constitutional, cardiovascular, GI, pulmonary. relevant finding as above Active Medications Acetaminophen (Acetaminophen Tab 325 Mg Tab) 650 mg PO Q6HR PRN PRN Reason: Pain Alprazolam (Alprazolam 0.25 Mg Tab) 0.25 mg PO Q6HR PRN PRN Reason: Anxiety Aspirin (Aspirin 81 Mg) 81 mg PO DAILY [facility] Last Admin: 03/09/21 10:29 Dose: 81 mg Documented by: Atorvastatin Calcium (Atorvastatin 40 Mg Tab) 40 mg PO HS [facility] Last Admin: 03/08/21 21:02 Dose: 40 mg Documented by: Calcium Carbonate (Calcium Carb-Vit D 500 Mg-5 Mcg Tab) 1 each PO DAILY [facility] Last Admin: 03/09/21 10:29 Dose: 1 each Documented by: Calcium Carbonate/Glycine (Calcium Carbonate 500 Mg Chewable) 1,000 mg PO Q4HR PRN PRN Reason: Dyspepsia Chlorthalidone (Chlorthalidone 25 Mg Tab) 25 mg PO HS [facility] Last Admin: 03/09/21 10:29 Dose: 25 mg Documented by: Clopidogrel Bisulfate (Clopidogrel 75 Mg Tab) 75 mg PO DAILY [facility] Last Admin: 03/09/21 10:29 Dose: 75 mg Documented by: Cyanocobalamin (Cyanocobalamin 500 Mcg Tab) 5,000 mcg PO MOWEFR [facility] Last Admin: 03/06/21 16:21 Dose: Not Given Documented by: Cyclosporine (Cyclosporine 0.05% Ophth 0.4 Ml Droperette) 1 drops BOTH EYES BID [facility] Last Admin: 03/09/21 10:29 Dose: 1 drops Documented by: Enoxaparin Sodium (Enoxaparin 40 Mg/0.4 Ml Syringe) 40 mg SQ DAILY [facility] Last Admin: 03/09/21 10:28 Dose: 40 mg Documented by: Folic Acid (Folic Acid 1 Mg Tab) 0.5 mg PO DAILY [facility] Last Admin: 03/09/21 10:29 Dose: 0.5 mg Documented by: Sodium Chloride (Saline 0.9%) 1,000 mls @ 10 mls/hr IV .Q24H [facility] Last Admin: 03/09/21 00:03 Dose: Not Given Documented by: Sodium Chloride (Saline 0.9%) 1,000 mls @ 20 mls/hr IV .Q24H [facility] Last Admin: 03/09/21 12:06 Dose: Not Given Documented by: Cefazolin Sodium 2 gm/ Sodium (Chloride) 50 mls @ 100 mls/hr IVPB ONCE ONE Stop: 03/09/21 15:48 Lactulose (Lactulose 20 Gm/30 Ml Cup) 20 gm PO DAILY PRN PRN Reason: Constipation Losartan Potassium (Losartan 50 Mg Tab) 50 mg PO DAILY [facility] Last Admin: 03/09/21 10:29 Dose: 50 mg Documented by: Melatonin (Melatonin 3 Mg Tablet) 3 mg PO HS PRN PRN Reason: Insomnia Metformin HCl (Metformin 500 Mg Tab) 1,000 mg PO AC-BID [facility] Last Admin: 03/09/21 07:21 Dose: Not Given Documented by: Multivitamins (Multivitamins, Thera 1 Each Tab) 1 each PO DAILY [facility] Last Admin: 03/09/21 10:30 Dose: 1 each Documented by: Naloxone HCl (Naloxone 0.4 Mg/Ml 1 Ml Vial) 0.2 mg IV Q2M PRN PRN Reason: Opioid Reversal Oxybutynin Chloride (Oxybutynin Xl 5 Mg Tab.Er.24) 10 mg PO DAILY [facility] Last Admin: 03/09/21 10:28 Dose: 10 mg Documented by: Pantoprazole Sodium (Pantoprazole 40 Mg Tablet) 40 mg PO Q48H [facility] Last Admin: 03/09/21 10:29 Dose: 40 mg Documented by: Vitamin E (Vitamin E (Dl,Tocopheryl Acet) 400 Unit (180 Mg) Cap) 400 unit PO DAILY [facility] Last Admin: 03/09/21 10:29 Dose: 400 unit Documented by: Past medical history to include: Diabetes, GERD, hypertension, hyperlipidemia, CK D, depression Social history: Lives alone. Used to work with [employer] previously. No smoking or alcohol. Family history: Reviewed, noncontributory to presentation Physical examination: VITAL SIGNS: 98, 90, 18, 140/74, 93% on room air GENERAL: Reclining in bed, awake, EYES: Pupils equal. Conjunctiva normal. HEENT: External appearance of nose and ears normal, oral cavity grossly normal. NECK: JVD not raised; masses not palpable. HEART: First and second heart sounds are normal; no edema. LUNGS: Respiratory rate normal; clear to auscultation. ABDOMEN: Soft, nontender, liver spleen not palpable, no masses palpable. PSYCH: Alert and oriented x3; mood and affect normal. MUSCULOSKELETAL:No Clubbing/cyanosis;muscles-grossly intact. Evidence of OA NEUROLOGICAL: Cranial nerves grossly intact; no facial asymmetry, left passpointing, left dysdiadochokinesia, no nystagmus. Body falling to the right. improvement in the left-sided cerebellar signs. INVESTIGATIONS, reviewed in the clinical context: ZEKE: Negative for any thrombus Computed tomography scan of the brain without contrast: Previous infarct seen. Area in patricia noted to. HbA1c: 8.4 White count 11.1 hemoglobin 13.9 platelets 346 potassium 4.8 BUN 23 creatinine 0.76. Glucose 231 Troponin I 0.014, 0.016, 0.019 LDL 77 UA: Trace protein Coronavirus [PCR]: Not detected EKG tracing personally reviewed by me-left bundle-branch block. Rate 71 CT angiogram head and neck: Unremarkable 2-D echocardiogram: Contrast study negative for bubble/no shunt noted. EF 50- 55% [place] of the brain without contrast: Large about 4.5 cm area of acute ischemia in the left cerebellum. Very mild mass effect upon the fourth ventricle. Diffuse DJD and nonspecific white matter changes. Carotid Doppler: Unremarkable Assessment and plan: -Acute severe left cerebellar stroke with symptoms starting over 48 hours ago. Aspirin/Plavix. DC aspirin after 3 weeks Lipitor 40 mg. Neurology outpatient follow-up PTOT. Repeat computed tomography scan today showing area in the patricia. ZEKE negative for embolic source. Event monitor being placed by cardiology today. -Diabetes mellitus type 2, oral hypoglycemic: Uncontrolled with hyperglycemia Follow Accu-Chek and sliding scale. Increase Glucophage 1000 mg twice a day -Acute medical debility from stroke. Patient full assist. PTOT -GERD Omeprazole -Essential hypertension Cozaar 50 mg a day, chlorthalidone 25 mg -Hyperlipidemia Lipitor to 40 mg daily at bedtime -Chronic urinary stress incontinence Detrol LA 4 mg a day ZEKE today unremarkable. Loop monitor being placed by cardiology today. Plan for discharge tomorrow. Continue current medications.
[2021-03-09 16:39] LABS: Glucose,Whole Blood 221 mg/dL (75-99)
[2021-03-09] MEDS: CYANOCOBALAMIN 500 MCG TAB PO SCH (17:19)
[2021-03-09] MEDS ORDERED: LIDOCAINE 1% INJ 10MG/ML (20 ML MDV) ONE (18:36)
[2021-03-09] MEDS ORDERED: LIDOCAINE 1% INJ 10MG/ML (20 ML MDV) SQ ONE (18:48)
--- NOTE | 2021-03-09 19:04 | P.EPPROC ---
- EP Procedure Note Electrophysiology Procedure Note: Loop monitor implant Primary physicians: Solution Specialist: Dr. Pickard Indication: Cryptogenic stroke, 4.5 cm area of acute ischemia in left cerebellum, normal cerebral CTA Patient was brought to the EP lab in a fasting state. Written informed consent was obtained prior to the procedure. The left pectoral area was prepped and draped per protocol. Intravenous antibiotic was administered preoperatively. A subcutaneous Loop monitor was implanted successfully and the wound was closed per protocol. The device was programmed to detect significant crystal- arrhythmic and tachy-arrhythmic events, per protocol. Device and programming details: Programmed to detect paroxysmal atrial fibrillation Patient underwent EP procedure under conscious sedation/moderate sedation, monitoring of the level of consciousness and physiologic parameters including but not limited to vital signs and oxygenation. Patient tolerated the procedure well without any acute complications. Start time: 1845 Stop time: 1857
--- NOTE | 2021-03-09 19:08 | P.PRLE ---
RE: Annamaria Soto Dear Dr. Judy Yin was admitted with an embolic stroke in the left cerebellum with anemia 4.5 cm of acute ischemia The CT of the neck and head and not show any significant atherosclerotic occlusion ZEKE was normal Twelve-lead EKG shows a left bundle branch block pattern, preserved LV systolic function No arrhythmias noted on telemetry while in the hospital She underwent implantation of loop monitor to see if she has any solid episodes of atrial fibrillation At this time she is on losartan and antiplatelet therapy along with atorvastatin I will send you an update if we detect any atrial fibrillation Thank you for entrusting me with the care of the patient Warm regards Sincerely Edvin Pickard
[2021-03-09 19:39] LABS: Glucose,Whole Blood 227 mg/dL (75-99)
[2021-03-09] MEDS: ATORVASTATIN 40 MG TAB PO SCH (21:31)
[2021-03-10] MEDS: SODIUM CHLORIDE 0.9% 1,000 ML IV SCH ×2 (00:32→10:31)
[2021-03-10 05:16] VITALS: RESP 16
[2021-03-10 06:12] LABS: Glucose,Whole Blood 185 mg/dL (75-99)
[2021-03-10] MEDS: metFORMIN 500 MG TAB PO SCH (06:46)
[2021-03-10 10:00] VITALS: BP 149/77; PULSE 86; TEMP 98.2
[2021-03-10] MEDS: FOLIC ACID 1 MG TAB PO SCH (10:26)
[2021-03-10] MEDS: CALCIUM CARB-VIT D 500 MG-5 MCG TAB PO SCH (10:27)
[2021-03-10] MEDS: OXYBUTYNIN XL 5 MG TAB.ER.24 PO SCH (10:27)
[2021-03-10] MEDS: cycloSPORINE 0.05% OPHTH 0.4 ML DROPERETTE BOTH EYES SCH (10:27)
[2021-03-10] MEDS: LOSARTAN 50 MG TAB PO SCH (10:27)
[2021-03-10] MEDS: CLOPIDOGREL 75 MG TAB PO SCH (10:28)
[2021-03-10] MEDS: ENOXAPARIN 40 MG/0.4 ML SYRINGE SQ SCH (10:28)
[2021-03-10] MEDS: ASPIRIN 81 MG PO SCH (10:28)
[2021-03-10] MEDS: MULTIVITAMINS, THERA 1 EACH TAB PO SCH (10:28)
[2021-03-10] MEDS: VITAMIN E (DL,TOCOPHERYL ACET) 400 UNIT (180 MG) CAP PO SCH (10:30)
--- NOTE | 2021-03-10 11:07 | CT ---
EXAMINATION TYPE: CT brain wo con DATE OF EXAM: 03/10/2021 COMPARISON: 03/07/2021, 03/03/2021 INDICATION: Ataxia, Vertigo DLP: 1035.4 mGycm, Automated exposure control for dose reduction was used. CONTRAST: None CT of the brain is performed utilizing 3 mm thick sections through the posterior fossa and 3 mm thick sections through the remaining calvarium. Study is performed within 24 hours of arrival to the hosp [facility]. No abnormal hyperdensity is present to suggest an acute intracranial hemorrhage. No mass lesion is evident. No acute infarcts are evident. There is a inferior medial left cerebellar infarct, present previously . Periventricular white matter hypodensity is present, this may be chronic white matter ischemic arthur ges present previously. Ventricles and sulci are prominent for the patient age. Paranasal sinuses and mastoid air cells within the [id number] are clear. IMPRESSIONS: 1. Stable appearance of recent left cerebellar infarct. 2. Chronic appearing periventricular white matter ischemic-type changes.
[2021-03-10 11:58] LABS: Glucose,Whole Blood 192 mg/dL (75-99)
--- NOTE | 2021-03-10 13:22 | P.DS ---
Providers Date of admission: 03/05/21 13:07 Expected date of discharge: 03/10/21 Attending physician: Gerson Dietrich Consults: 03/04/21 22:40 Consult Physician Urgent Consulting Provider: Christine Ashford Consult Reason/Comments: Vertigo Do you want consulting provider notified?: Yes 03/05/21 13:47 Consult Physician Routine Consulting Provider: Dionicio Concepcion Consult Reason/Comments: IPD rehab/cerebellar stroke Do you want consulting provider notified?: Yes 03/07/21 16:31 Consult Physician Routine Consulting Provider: Edvin Pickard Consult Reason/Comments: ZEKE ; suspect embolic stroke Do you want consulting provider notified?: Yes Primary care physician: [facility] Course: Chief Complaint: Dizzy This is a very pleasant 76-year-old patient of Dr. Kim. Chronic stable medical conditions include diabetes, GERD, hypertension, hyperlipidemia, chronic kidney disease depression. Patient recently had right arm/shoulder weakness for which she started doing therapy at [facility]. Day before yesterday when she got up the car to going psychotherapy she started getting very dizzy. She is falling sideways. Anyway managed to get inside. Therapy could not be completed. Patient was sent down to the ER. In the ER patient had a computed tomography scan of the brain. Unremarkable. She was discharged with Antivert. She continued to feel dizzy. Trouble walking. No change in speech. No headache. No change in vision. Some unsteadiness of the left arm. Presented back to the ER. Denies any ear symptoms. No fever no chills. As symptoms progressed to get worse. Including nausea. Patient remains to be rather dizzy. Especially with movement. Admitted with acute cerebellar stroke. March 06: Patient still having significant dizziness and balance problems. PTOT of the case. Patient is on telemetry. Not yet reported. Discussed with Dr. Glynn from neurology. Given the acuteness of symptoms and severity Will watch the patient before she goes to rehab. March 07: Tired. Still off balance. Coordination better on the left side. Decreased appetite. Encouraged oral intake. On aspirin and Plavix. Patient still total assist. Based on slow response clinically. Discussed with Dr. Glynn from neurology. Repeat computed tomography scan ordered today. Still shows a large cerebellar infarct. Possible also in the patricia. We will order ZEKE. Telemetry has not shown any atrial fibrillation. March 08: Balance slightly better. Coordination in the left arm improving. Pending ZEKE tomorrow. Discussed with the patient. Appetite better March 09: Patient underwent ZEKE today. No embolic source found. Patient has abated [facility]. Discussed with patient. Patient will take aspirin for 3 more weeks and discontinue. Continue with Plavix. Event monitor was arranged. I was then called this afternoon that cardiology is planning to place a loop monitor. Discharged held for today. March 10: Patient had a loop recorder placed yesterday. This morning balance a bit better. Left side coordination better. A computed tomography scan was done today. No new changes. Discussed with neurology. Discharged to ECF. Discussed with the patient. Discussion and discharge planning more than 35 minutes Consultation: Neurology Dr. Edvin Pickard from cardiology Past medical history to include: Diabetes, GERD, hypertension, hyperlipidemia, CK D, depression Social history: Lives alone. Used to work with [employer] previously. No smoking or alcohol. Family history: Reviewed, noncontributory to presentation Physical examination: VITAL SIGNS: 98.2, 86, 16, 149-77, 95% room air GENERAL: Reclining in bed, awake, EYES: Pupils equal. Conjunctiva normal. HEENT: External appearance of nose and ears normal, oral cavity grossly normal. NECK: JVD not raised; masses not palpable. HEART: First and second heart sounds are normal; no edema. LUNGS: Respiratory rate normal; clear to auscultation. ABDOMEN: Soft, nontender, liver spleen not palpable, no masses palpable. PSYCH: Alert and oriented x3; mood and affect normal. MUSCULOSKELETAL:No Clubbing/cyanosis;muscles-grossly intact. Evidence of OA NEUROLOGICAL: Cranial nerves grossly intact; no facial asymmetry, left passpointing, left dysdiadochokinesia, no nystagmus. Sitting balance improved. improvement in the left-sided cerebellar signs. INVESTIGATIONS, reviewed in the clinical context: ZEKE: Negative for any thrombus Computed tomography scan of the brain without contrast: Previous infarct seen. Area in patricia noted to. HbA1c: 8.4 White count 11.1 hemoglobin 13.9 platelets 346 potassium 4.8 BUN 23 creatinine 0.76. Glucose 231 Troponin I 0.014, 0.016, 0.019 LDL 77 UA: Trace protein Coronavirus [PCR]: Not detected EKG tracing personally reviewed by me-left bundle-branch block. Rate 71 CT angiogram head and neck: Unremarkable 2-D echocardiogram: Contrast study negative for bubble/no shunt noted. EF 50- 55% [place] of the brain without contrast: Large about 4.5 cm area of acute ischemia in the left cerebellum. Very mild mass effect upon the fourth ventricle. Diffuse DJD and nonspecific white matter changes. Carotid Doppler: Unremarkable Assessment and plan: -Acute severe left cerebellar stroke with symptoms starting over 48 hours ago. Aspirin/Plavix. DC aspirin after 3 weeks Lipitor 40 mg. Neurology outpatient follow-up PTOT. Repeat computed tomography scan showing ischemic area in the patricia. ZEKE negative for embolic source. Loop recorder placed on March 09. Repeat computed tomography scan of the brain today unchanged. -Diabetes mellitus type 2, oral hypoglycemic: Uncontrolled with hyperglycemia Follow Accu-Chek and sliding scale. Increase Glucophage 1000 mg twice a day -Acute medical debility from stroke. Patient full assist. PTOT -GERD Omeprazole -Essential hypertension Cozaar 50 mg a day, chlorthalidone 25 mg -Hyperlipidemia Lipitor to 40 mg daily at bedtime -Chronic urinary stress incontinence Detrol LA 4 mg a day Disposition: ECF/[facility] Plan - Discharge Summary Discharge Rx Participant: No New Discharge Prescriptions: New Losartan [Cozaar] 50 mg PO DAILY tab Melatonin 3 mg PO HS PRN tablet PRN Reason: Insomnia Chlorthalidone [Hygroton] 25 mg PO HS tab Atorvastatin [Lipitor] 40 mg PO HS tab Clopidogrel [Plavix] 75 mg PO DAILY tab Acetaminophen Tab [Tylenol] 650 mg PO Q6HR PRN tab PRN Reason: Pain Continue Tolterodine Tartrate [Detrol LA] 4 mg PO DAILY Omeprazole 20 mg PO Q48H Cyanocobalamin (Vitamin B-12) [Vitamin B-12] 5,000 mcg PO MOWEFR Vitamin E (Dl,Tocopheryl Acet) [Vitamin E (400 Iu = 180 mg)] 400 unit PO DAILY Folic Acid 0.4 mg PO DAILY Calcium Carbonate/Vitamin D3 [Calcium 600-Vit D3 400 Caplet] 1 tab PO DAILY Cod Liver Oil 2 cap PO DAILY cycloSPORINE [Restasis] 1 applicator BOTH EYES BID Aspirin EC [Ecotrin Low Dose] 81 mg PO DAILY 21 Days #0 Multivit-Min/Iron/Folic/Lutein [Centrum Silver Women Tablet] 1 tab PO DAILY Changed metFORMIN HCL [Glucophage] 1,000 mg PO AC-BID #0 Discontinued Atorvastatin [Lipitor] 20 mg PO DAILY metFORMIN HCL [Glucophage] 500 mg PO DAILY Losartan [Cozaar] 25 mg PO DAILY #30 tab Meclizine [Antivert] 25 mg PO TID #20 tab Discharge Medication List Calcium Carbonate/Vitamin D3 [Calcium 600-Vit D3 400 Caplet] 1 tab PO DAILY 08/18/15 [History] Cod Liver Oil 2 cap PO DAILY 08/18/15 [History] Cyanocobalamin (Vitamin B-12) [Vitamin B-12] 5,000 mcg PO MOWEFR 08/18/15 [History] Folic Acid 0.4 mg PO DAILY 08/18/15 [History] Omeprazole 20 mg PO Q48H 08/18/15 [History] Tolterodine Tartrate [Detrol LA] 4 mg PO DAILY 08/18/15 [History] Vitamin E (Dl,Tocopheryl Acet) [Vitamin E (400 Iu = 180 mg)] 400 unit PO DAILY 08/18/15 [History] Multivit-Min/Iron/Folic/Lutein [Centrum Silver Women Tablet] 1 tab PO DAILY 03/04/21 [History] cycloSPORINE [Restasis] 1 applicator BOTH EYES BID 03/04/21 [History] Acetaminophen Tab [Tylenol] 650 mg PO Q6HR PRN tab 03/09/21 [Rx] Aspirin EC [Ecotrin Low Dose] 81 mg PO DAILY 21 Days #0 03/09/21 [Rx] Atorvastatin [Lipitor] 40 mg PO HS tab 03/09/21 [Rx] Chlorthalidone [Hygroton] 25 mg PO HS tab 03/09/21 [Rx] Clopidogrel [Plavix] 75 mg PO DAILY tab 03/09/21 [Rx] Losartan [Cozaar] 50 mg PO DAILY tab 03/09/21 [Rx] Melatonin 3 mg PO HS PRN tablet 03/09/21 [Rx] metFORMIN HCL [Glucophage] 1,000 mg PO AC-BID #0 03/09/21 [Rx] Follow up Appointment(s)/Referral(s): Edvin Pickard MD [STAFF PHYSICIAN] - 2 Weeks Tima Kim DO [Primary Care Provider] - 1-2 days Claudia Bush MD [Medical Doctor] - 2 Weeks Activity/Diet/Wound Care/Special Instructions: Event monitor
--- NOTE | 2021-03-10 14:07 | P.PN ---
Subjective Patient is a pleasant 76-year-old female with a past medical history that includes diabetes, GERD, hypertension, hyperlipidemia, chronic kidney disease, and depression. 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 She initially presented to the hospital with complaints of dizziness and ataxia. Patient was subsequently found to have a left cerebellar stroke. She was subsequently admitted for continued treatment and evaluation. Cardiology was consulted for a possible ZEKE secondary to investigation of the origins of the stroke. ZEKE was completed on 03/09 that revealed no intracardiac thrombus, no evidence of shunting across interarterial septum, normal left ventricle systolic function, no evidence of aortic stenosis or aortic regurgitation, no mitral stenosis or regurgitation. She underwent loop recorder placement by Dr. Pickard as well on 03/09/20. Patient seen and examined at bedside, no acute distress. She states she has an intermittent headache. She denies any shortness of breath or chest pain. Loop recorder dressing site intact, no bleeding noted. She is maintained on aspirin 81 mg daily, atorvastatin 40 mg daily, Plavix 75 mg daily, losartan 50 mg daily GENERAL: Well-appearing, well-nourished and in no acute distress. NECK: Supple without JVD or thyromegaly. LUNGS: Breath sounds clear to auscultation bilaterally. Respiration equal and unlabored. No wheezes, rales or rhonchi. HEART: Regular rate and rhythm without murmurs, rubs or gallops. S1 and S2 heard. EXTREMITIES: Normal range of motion, no edema. No clubbing or cyanosis. Peripheral pulses intact. ASSESSMENT Acute left cerebellar CVA History of type 2 diabetes Hypertension hyperlipidemia Chronic kidney disease Implantation of loop monitor on 03/09/21 PLAN From a cardiology perspective, patient is stable to be discharged home. Follow up with Dr. Pickard outpatient Nurse Practitioner note has been reviewed, I agree with a documented findings and plan of care. Patient was seen and examined.. Objective - Vital Signs Vital signs: Vital Signs Temp 98.2 F 03/10/21 08:00 Pulse 86 03/10/21 08:00 Resp 16 03/10/21 08:00 BP 149/77 03/10/21 08:00 Pulse Ox 95 03/10/21 08:00 Intake & Output 03/09/21 03/10/21 03/10/21 18:59 06:59 18:59 Intake Total 225 128 Balance 225 128 Intake: IV 150 10 Invasive Line 2 10 Oral 75 118 Other: Voiding Method Toilet Toilet # Voids 2 1 - Labs CBC & Chem 7: 03/04/21 21:19 03/04/21 21:19 Labs: Abnormal Lab Results - Last 24 Hours (Table) 03/09/21 03/09/21 03/10/21 Range/Units 16:38 19:36 06:10 POC Glucose (mg/dL) 221 H 227 H 185 H (75-99) mg/dL 03/10/21 Range/Units 11:55 POC Glucose (mg/dL) 192 H (75-99) mg/dL
== END 2021-03-10 14:30 | DRG 42 ==
LOC: EC 17:45 → 6NMEDSUR 22:39 → OBSVTOIN 03-05 13:07 → 3SCARD 03-05 15:24
PROVIDERS: ADMIT Hospitalist; ATTEND Hospitalist
PROC: B24BZZ4 Ultrasonography of Heart with Aorta, Transesophageal (ICD-10-PCS; principal; 2021-03-09 09:55)
PROC: 0JH632Z Insertion of Monitoring Device into Chest Subcutaneous Tissue and Fascia, Percutaneous Approach (ICD-10-PCS; principal; 2021-03-09 09:55)
PROC: 4A12X45 Monitoring of Cardiac Electrical Activity, Ambulatory, External Approach (ICD-10-PCS; principal; 2021-03-09 09:55)
DX: I63.542 Cerebral infarction due to unspecified occlusion or stenosis of left cerebellar artery (principal); I12.9 Hypertensive chronic kidney disease with stage 1 through stage 4 chronic kidney disease, or unspecified chronic kidney disease; F32.A Depression, unspecified; I44.7 Left bundle-branch block, unspecified; J44.9 Chronic obstructive pulmonary disease, unspecified; K21.9 Gastro-esophageal reflux disease without esophagitis; E11.22 Type 2 diabetes mellitus with diabetic chronic kidney disease; R26.0 Ataxic gait; E11.65 Type 2 diabetes mellitus with hyperglycemia; N18.30 Chronic kidney disease, stage 3 unspecified; Z79.84 Long term (current) use of oral hypoglycemic drugs; E78.5 Hyperlipidemia, unspecified; N39.3 Stress incontinence (female) (male); Z79.02 Long term (current) use of antithrombotics/antiplatelets; Z79.82 Long term (current) use of aspirin; Z79.899 Other long term (current) drug therapy; Z90.710 Acquired absence of both cervix and uterus; Z60.2 Problems related to living alone; Z20.822 Contact with and (suspected) exposure to COVID-19; Z98.890 Other specified postprocedural states; Z88.2 Allergy status to sulfonamides
CPT/HCPCS: 33285; 36415; 70450; 70496; 70498; 70551; 71046; 80053; 80061; 81003; 82607; 82746; 83036; 84443; 84484; 85025; 87635; 92960; 93005; 93306; 93312; 93320; 93325; 93880; 96374; 99285

== ENCOUNTER → 2021-12-04 | Outpatient (CLI) | payer MEDICARE ==
--- NOTE | 2021-12-04 12:21 | BD ---
EXAMINATION TYPE: Axial Bone Density DATE OF EXAM: 12/04/2021 COMPARISON: 02.10.2017 CLINICAL HISTORY: 76 years year old Female. ICD-10 CODE: N95.1 Post menopausal symptoms Height: 60.5 Weight: 167 FRAX RISK QUESTIONS: Glucocorticoids (More than 3mos): YES (Ex: prednisone, prednisolone, methylprednisolone, dexamethasone, and hydrocortisone). Secondary Osteoporosis: YES 3. Menopause before 45: YES RISK FACTORS HISTORY OF: Postmenopausal woman: YES AT AGE 44 YRS Take estrogen and/or progesterone medications: IN THE PAST FOR ABOUT 2 YRS Frequent falls: STROKE IN Poor Health: STO 2021 Hyperparathyroidism: NO Adrenal Insufficiency: NO MEDICATIONS: Additional Medications: BP MEDS, STROKE, BLOOD THINNERS, AND ANTI SEIZURE MEDS, METFORMIN, AND ANOTH ER DIABETIC MED, REFLUX MEDS, STATIN CHOLESTEROL, VIT D AND CALCIUM Additional History: STROKE, FEB 2021, VERTIGO, DIABETIC, REFLUX, CHOLESTEROL, HYPERTENSION, EXAM MEASUREMENTS: Bone mineral densitometry was performed using the Reviews42 System. Bone mineral density as measured about the Lumbar spine is: ----- L1-L4(G/cm2): 1.180 T Score Values are as follows: ----- L1: -0.2 ----- L2: -0.5 ----- L3: 0.0 ----- L4: 0.5 ----- L1-L4: 0.0 Bone mineral density has: Increased 1.4% since study of: 02.10.2017 Bone mineral density about the R hip (g/cm2): 0.950 Bone mineral density about the L hip (g/cm2): 0.939 T Score values are as follows: -----R Neck: -1.9 -----L Neck: -1.5 -----R Total: -0.5 -----L Total: -0.6 Bone mineral density has: Decreased -4.6% since study of: 02.10.2017 FRAX%s: The graph provided illustrates a 19.3% chance for a major osteoporotic fx and a 5.4% chance f or the hips probability for fx in 10 years time. IMPRESSION: Osteopenia (T Score between -2.5 and -1). There is slightly increased risk of fracture and the patient may be considered for treatment. Re-Screen 2-5 years. NOTE: T-SCORE=SD OF THE YOUNG ADULT MEAN.
--- NOTE | 2021-12-07 09:55 | MM ---
Reason for Exam: Screening (asymptomatic). Last screening mammogram was performed 12 month(s) ago. Patient History: Menarche at age 11. Patient has no children. Left ovary removed at age 44. Right ovary removed at age 44. Hysterectomy at age 44. Postmenopausal. Other cancer. Estrogen for 10 years from age 44 until age 54. Maternal cousin had breast cancer, age 50. Risk Values: Rosey 5 year model risk: 2.2%. NCI Lifetime model risk: 4.7%. Prior Study Comparison: 06/08/2018 Bilateral Screening Mammogram, [facility]. 11/30/2019 Bilateral Screening Mammogram, [facility]. 12/02/2020 Bilateral Screening Mammogram, [facility]. Tissue Density: The breast tissue is heterogeneously dense. This may lower the sensitivity of mammography. Findings: Analyzed By CAD. There is no suspicious group of microcalcifications or new suspicious mass in either breast. Benign round calcifications within both breasts. No significant change from prior exams. Overall Assessment: Benign, BI-RAD 2 Management: Screening Mammogram of both breasts in 1 year. A clinical breast exam by your physician is recommended on an annual basis and results should be correlated with mammographic findings. Electronically signed and approved by: Rocky Hinton D.O.
== END | disposition home or self-care (01) ==
LOC: RADMAMWWP 10:25
PROVIDERS: ATTEND Obstetrics & Gynecology
DX: Z12.31 Encounter for screening mammogram for malignant neoplasm of breast (principal); M85.89 Other specified disorders of bone density and structure, multiple sites; Z80.3 Family history of malignant neoplasm of breast; Z78.0 Asymptomatic menopausal state
CPT/HCPCS: 77063; 77067; 77080

== ENCOUNTER → 2022-09-30 | Outpatient (CLI) | payer MEDICARE ==
--- NOTE | 2022-09-30 15:54 | P.SLEEP ---
History of Present Illness DATE: 09/30/2022 CONSULTATION/NEW PATIENT EVALUATION HISTORY OF PRESENT ILLNESS/SLEEP-WAKE EVALUATION: 77-year-old lady had been evaluated in the sleep center for possible obstructive sleep apnea hypopnea syndrome. SLEEP SCHEDULE: Usually sleep schedule from 10 PM to 5:30 AM on weekdays and from 10 PM to 7 AM on weekend. FALLING ASLEEP: Usually no significant problems with falling asleep, no TV in bedroom. DURING SLEEP: Patient wakes up from sleep 3 times with nocturia. Patient sleeps by himself so no information about snoring. No history of hypnogogical hallucinations, sleep paralysis, or cataplexy. DURING THE DAY/WAKE STATE: In the morning patient wake up tired, has difficulties to pay attention, has problems with memory and anxiety. Austin sleepiness scale significantly increased to 12. Sometimes patient takes nap around 2 PM. PAST MEDICAL HISTORY: Stroke in 2021, hypertension, diabetes mellitus, increased eye pressure. PAST SURGICAL HISTORY: Total hysterectomy. MEDICATIONS: Atorvastatin 20 mg once a day, clopidogrel 75 mg once a day, chlorthalidone 25 mg once a day, famotidine 20 mg once a day, Januvia 50 mg once a day, metformin 500 mg 2 tablets once a day, latanoprost eyedrops. SOCIAL HISTORY: Negative for smoking or using alcohol. FAMILY HISTORY: Hypertension, cancer, diabetes, thyroid problems. REVIEW OF SYSTEMS: Multiple awakenings from sleep, sleepiness during the day. No fevers. No double vision. No recent chest pain. No shortness of breath. No abdominal pain. No bleeding episodes. No blood in urine. No seizure episodes. PHYSICAL EXAMINATION: GENERAL: A pleasant patient without any distress. VITAL SIGNS: BP 160/82 , HR 83 , RR 18 , weight 172.8 pounds, height 5 foot 1.5 inches, body mass index 31.9 . HEENT: PERRLA, EOMI. Evaluation of oropharynx showed tongue protrudes midline, low position of soft palate Mallampati 3, retrognathia 3 mm. NECK: Supple. No JVD. Thyroid is not palpable. 14.5 inches in circumference. LUNGS: Clear to percussion and to auscultation. Good air exchange. No wheezing or rhonchi. HEART: S1, S2 regular. No murmurs, gallops or rubs. ABDOMEN: Soft and nontender. Bowel sounds are present. No organomegaly appreciated. EXTREMITIES: No clubbing or cyanosis. DATABASE ANALYST: Awake, alert, and oriented x3. Cranial nerves 2 to 7 intact. There is no fasciculation or atrophy noted. No focal deficits observed. ASSESSMENT: 1. Multiple awakenings from sleep with nocturia, low position of soft palate Mallampati 3, no information about snoring patient sleeps by herself, sleepiness during the day Austin Sleepiness Scale increased to 12. Obstructive sleep apnea hypopnea syndrome. 2. Hypertension. 3. Diabetes mellitus. 4. Acid reflux. 5 status post stroke in 2021. 6 . History of increased eye pressure. 7. Status post total hysterectomy. 8. Episodes of urinary incontinence. PLAN: 1. Polysomnography for evaluation of patient's breathing during sleep. 2. CPAP/BiPAP titration if sleep study confirms obstructive sleep apnea- hypopnea syndrome. 3. Preferable position during sleep on the side. 4. No driving if patient feels any sleepiness. Patient is aware of civil and criminal liability for unsafe driving. 5. Sleep hygiene with regular sleep time for at least 7.5-8 hours. 6. Watching weight. Thank you very much for referring this patient for consultation. Sincerely, Venkat Leyva MD, PhD, FAASM. 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 History of Any Multi-Drug Resistant Organisms: None Reported Past Surgical History: Hysterectomy Past Anesthesia/Blood Transfusion Reactions: No Reported Reaction Past Psychological History: Depression Smoking Status: Never smoker Past Alcohol Use History: None Reported Past Drug Use History: None Reported Medications and Allergies Home Medications Medication Instructions Recorded Confirmed Type Calcium Carbonate/Vitamin D3 1 tab PO DAILY 08/18/15 03/04/21 History [Calcium 600-Vit D3 400 Caplet] Cod Liver Oil 2 cap PO DAILY 08/18/15 03/04/21 History Cyanocobalamin (Vitamin B-12) 5,000 mcg PO MOWEFR 08/18/15 03/04/21 History [Vitamin B-12] Folic Acid 0.4 mg PO DAILY 08/18/15 03/04/21 History Omeprazole 20 mg PO Q48H 08/18/15 03/04/21 History Tolterodine Tartrate [Detrol LA] 4 mg PO DAILY 08/18/15 03/04/21 History Vitamin E (Dl,Tocopheryl Acet) 400 unit PO DAILY 08/18/15 03/04/21 History [Vitamin E (400 Iu = 180 mg)] Multivit-Min/Iron/Folic/Lutein 1 tab PO DAILY 03/04/21 03/04/21 History [Centrum Silver Women Tablet] cycloSPORINE [Restasis] 1 applicator BOTH EYES BID 03/04/21 03/04/21 History Acetaminophen Tab [Tylenol] 650 mg PO Q6HR PRN tab 03/09/21 Rx Aspirin EC [Ecotrin Low Dose] 81 mg PO DAILY 21 Days #0 03/09/21 03/04/21 Rx Atorvastatin [Lipitor] 40 mg PO HS tab 03/09/21 Rx Chlorthalidone [Hygroton] 25 mg PO HS tab 03/09/21 Rx Clopidogrel [Plavix] 75 mg PO DAILY tab 03/09/21 Rx Losartan [Cozaar] 50 mg PO DAILY tab 03/09/21 Rx Melatonin 3 mg PO HS PRN tablet 03/09/21 Rx metFORMIN HCL [Glucophage] 1,000 mg PO AC-BID #0 03/09/21 03/04/21 Rx Allergies Allergy/AdvReac Type Severity Reaction Status Date / Time Sulfa (Sulfonamide Allergy Unknown Verified 03/04/21 21:53 Antibiotics) Sleep Note - Sleep Note Sleep Note: Temperature: Pulse Rate: Respiratory Rate: Blood Pressure: SpO2: Height: Weight: BMI: Neck Circumference:
== END ==
LOC: 3 N SLEEP 14:10
PROVIDERS: ATTEND Internal Medicine
DX: G47.33 Obstructive sleep apnea (adult) (pediatric) (principal); I10 Essential (primary) hypertension; E11.9 Type 2 diabetes mellitus without complications; K21.9 Gastro-esophageal reflux disease without esophagitis; H40.059 Ocular hypertension, unspecified eye; R39.81 Functional urinary incontinence; Z90.710 Acquired absence of both cervix and uterus; Z86.73 Personal history of transient ischemic attack (TIA), and cerebral infarction without residual deficits; Z79.84 Long term (current) use of oral hypoglycemic drugs; Z88.2 Allergy status to sulfonamides
CPT/HCPCS: 99211

== ENCOUNTER → 2022-12-08 | Outpatient (CLI) | payer MEDICARE ==
--- NOTE | 2022-12-09 12:31 | MM ---
Reason for Exam: Screening (asymptomatic). Last screening mammogram was performed 12 month(s) ago. Patient History: Menarche at age 11. Patient has no children. Left ovary removed at age 44. Right ovary removed at age 44. Hysterectomy at age 44. Postmenopausal. Other cancer. Estrogen for 10 years from age 44 until age 54. Maternal cousin had breast cancer, age 50. Risk Values: Rosey 5 year model risk: 2.2%. NCI Lifetime model risk: 4.4%. Prior Study Comparison: 11/30/2019 Bilateral Screening Mammogram, [facility]. 12/02/2020 Bilateral Screening Mammogram, [facility]. 12/04/2021 Bilateral MG 3D screening mammo w/cad, [facility]. Tissue Density: The breast tissue is heterogeneously dense. This may lower the sensitivity of mammography. Findings: Analyzed By CAD. There is no suspicious group of microcalcifications or new suspicious mass. Overall Assessment: Negative, BI-RAD 1 Management: Screening Mammogram of both breasts in [address] [facility] will attempt to contact patient to return for supplemental views and ultrasound if indicated. Patient should continue monthly self-breast exams. A clinical breast exam by your physician is recommended on an annual basis. This exam should not preclude additional follow-up of suspicious palpable abnormalities. Note on Rosey scores and lifetime risk: 1. A Rosey score greater than 3% is considered moderate risk. If this is the case, consider specialist referral to assess eligibility for a risk reducing agent. 2. If overall lifetime risk for the development of breast cancer is 20% or higher, the patient may qualify for future screening with alternating mammogram and breast MRI. Electronically signed and approved by: German Falcon DO
== END | disposition home or self-care (01) ==
LOC: RADMAMWWP 11:17
PROVIDERS: ATTEND Obstetrics & Gynecology
DX: Z12.31 Encounter for screening mammogram for malignant neoplasm of breast (principal); Z78.0 Asymptomatic menopausal state; Z80.3 Family history of malignant neoplasm of breast
CPT/HCPCS: 77063; 77067

== ENCOUNTER 2023-01-06 20:00 | Outpatient (CLI) | payer MEDICARE | END 2023-01-07 06:12 | disposition home or self-care (01) | LOC: 3 N SLEEP 20:00 | PROVIDERS: ATTEND Internal Medicine | DX: G47.33 Obstructive sleep apnea (adult) (pediatric) (principal); Z88.2 Allergy status to sulfonamides | CPT/HCPCS: 95811 ==

== ENCOUNTER → 2024-02-16 | Outpatient (CLI) | payer MEDICARE ==
--- NOTE | 2024-02-20 17:22 | MM ---
Reason for Exam: Screening (asymptomatic). Last mammogram was performed 1 year(s) and 2 month(s) ago. Patient History: Menarche at age 11. Patient has no children. Left ovary removed at age 44. Right ovary removed at age 44. Hysterectomy at age 44. Postmenopausal. Other cancer. Estrogen for 10 years from age 44 until age 54. Maternal cousin had breast cancer, age 50. Risk Values: Rosey 5 year model risk: 2.1%. NCI Lifetime model risk: 3.8%. Prior Study Comparison: 12/02/2020 Bilateral Screening Mammogram, [facility]. 12/04/2021 Bilateral MG 3D screening mammo w/cad, [facility]. 12/08/2022 Bilateral MG 3D screening mammo w/cad, [facility]. Tissue Density: The breasts are heterogeneously dense, which may obscure small masses. Findings: Analyzed By CAD. Focal asymmetry posterior inferior right MLO view remains unchanged. There is no suspicious group of microcalcifications or new suspicious mass in either breast. Overall Assessment: Benign, BI-RAD 2 Management: Screening Mammogram of both breasts in 1 year. . Patient should continue monthly self-breast exams. A clinical breast exam by your physician is recommended on an annual basis. This exam should not preclude additional follow-up of suspicious palpable abnormalities. Note on Rosey scores and lifetime risk: 1. A Rosey score greater than 3% is considered moderate risk. If this is the case, consider specialist referral to assess eligibility for a risk reducing agent. 2. If overall lifetime risk for the development of breast cancer is 20% or higher, the patient may qualify for future screening with alternating mammogram and breast MRI. [facility], , 02/20/2024 5:19 PM. Electronically signed and approved by: Akil Perry M.D. Radiologist
== END | disposition home or self-care (01) ==
LOC: RADMAMWWP 10:49
PROVIDERS: ATTEND Family Medicine
DX: Z12.31 Encounter for screening mammogram for malignant neoplasm of breast (principal); Z90.722 Acquired absence of ovaries, bilateral; Z78.0 Asymptomatic menopausal state; Z80.3 Family history of malignant neoplasm of breast; R92.333 Mammographic heterogeneous density, bilateral breasts
CPT/HCPCS: 77063; 77067

== ENCOUNTER 2024-06-25 10:32 | Day surgery (SDC) | payer MEDICARE ==
[~2024-06-25 10:32] MED LIST: ALPRAZolam 0.25 MG TAB PO PRN; NITROGLYCERIN SL TABS 0.4 MG TAB SUBLINGUAL PRN
[2024-06-25] MEDS: IV FLUID CONTINUATION 1,000 ML IV ONE (10:58)
[2024-06-25 11:03] LABS: Glucose,Whole Blood 150 mg/dL (70-110)
[2024-06-25 11:13] LABS: Basophils # (A) 0.04 10*3/uL (0.00-0.10); Basophils % (A) 0.4 %; HGB 14.1 g/dL (12.0-15.0); Lymphocytes # (A) 2.54 10*3/uL (0.90-5.00); Lymphocytes % (A) 24.5 %; MCH 26.2 pg (27.0-32.0); MCHC 32.8 g/dL (32.0-37.0); MCV 79.9 fL (80.0-97.0); Mean Platelet Volume 9.7 fL (9.5-12.2); Monocytes # (A) 0.68 10*3/uL (0.20-1.00); Monocytes % (A) 6.6 %; Neutrophils # (A) 6.95 10*3/uL (1.80-7.70); Neutrophils % (A) 67.1 %; Platelet Count 287 10*3/uL (140-440); RBC 5.38 10*6/uL (4.10-5.20); RDW 14.7 % (11.5-14.5); WBC 10.35 10*3/uL (4.50-10.00)
[2024-06-25 11:21] LABS: African American GFR (CKD) 71 (>60 ml/min/1.73 sqM); Anion Gap 9 mmol/L; Blood Urea Nitrogen 23 mg/dL (7-17); Calcium 9.6 mg/dL (8.4-10.2); Carbon Dioxide 22 mmol/L (22-30); Chloride 105 mmol/L (98-107); Glucose 161 mg/dL (74-99); Non-African American GFR(CKD) 62 (>60 ml/min/1.73 sqM); Potassium 5.1 mmol/L (3.5-5.1); Sodium 136 mmol/L (137-145)
[2024-06-25] MEDS: MIDAZOLAM 2 MG/2 ML VIAL IVP ONE ×2 (14:22→16:37)
[2024-06-25] MEDS: fentaNYL (PF) 50 MCG/1 ML VIAL IVP ONE (14:22)
[2024-06-25] MEDS: LIDOCAINE 1% INJ 10MG/ML (20 ML MDV) SQ ONE (14:22)
[2024-06-25] MEDS: VERAPAMIL SYRINGE (5 MG/10 ML) INTRAARTER ONE ×2 (14:24→16:43)
[2024-06-25] MEDS: HEPARIN SODIUM,PORCINE 10,000 UNIT in SODIUM CHLORIDE 0.9% 1,000 ML IRRIGATION PRN (14:27)
[2024-06-25] MEDS: HEPARIN SODIUM 1,000 UN/ML (10ML VL) IVP ONE ×2 (14:27→16:45)
[2024-06-25] MEDS: HEPARIN SODIUM,PORCINE (1 ML) 2,500 UNIT in SODIUM CHLORIDE 0.9% 250 ML IRRIGATION PRN (14:27)
[2024-06-25] MEDS: IOPAMIDOL-370 100ML BTL INJ ONE (14:47)
--- NOTE | 2024-06-25 14:59 | P.CARDCATH ---
Date of Procedure: 06/25/24 Description of Procedure: DIAGNOSTIC CORONARY ANGIOGRAPHY and LEFT HEART CATH REPORT PROCEDURES PERFORMED: Left heart catheterization Selective coronary angiography Moderate conscious sedation 18 mins [Ultrasound assisted] Right radial access INDICATION: Abnormal stress test BRIEF HPI: 79-year-old female saw Dr. Pickard in the office for symptoms of increased worsening shortness of breath. For this she underwent a Lexiscan nuclear stress test which showed mild reversible perfusion defect of moderate size involving anteroapical segments. For this she was scheduled for a heart catheterization procedure. CONSENT: I have explained the procedural steps of above-mentioned procedures in layman's terms to the patient. I discussed the risks (including but not limited to stroke, emergent vascular or cardiac surgery or ), benefits and alternative therapies for the above-mentioned procedure. I discussed the risks of sedation/analgesia and blood product administration (if indicated). The patient has indicated understanding and acceptance of these risks. Conscious Sedation: Patient's ECG, heart rate, blood pressure, pulse oximetry were monitored throughout the duration of procedure under my direct supervision. 1 mg Versed and 50 mcg Fentanyl were used for induction of moderate conscious sedation. Total duration of moderate concious sedation 18 minutes. PROCEDURAL DETAILS: Patient was prepped and draped in sterile fashion. 1% lidocaine was infiltrated over the right radial artery. Right radial access was obtained via modified seldinger technique. [Ultrasound was used for radial access]. Medications: 5mg of verapamil was administed in the radial sheet. 4500 Units of Heparin was administed once the catheter reached the aortic root Wires and Catheter used: J wire was advanced under fluroscopy to get to aortic root. 5 japanese JR 4 diagnostic catheter was utilized obtain left ventricular pressure and pressure gradint across aortic valve. 5 japanese JR 4 diagnostic catheter was used to selectively engage the right coronary ostium. 5 japanese JL 3.5 diagnostic catheter was utilized to selectively engage the left coronary ostium. Angiographic images were reviewed in detail. Catheter and wire were removed. Radial sheet was flushed. The right radial sheath was removed and a TR band was placed. Patent hemostasis was achieved. The patient tolerated the procedure well. Patient was transported back to the post catheterization holding area in stable condition. TECHNICAL DETAILS Total radiation: 134 mGy Total fluro time: 6 minutes Total contrast used: Isovue [60 ml] Complications: [none] Estimated Blood loss: less than 15 ml HEMODYNAMICS: Aortic Pressure: 140/56 mmHg mmHg. LV pressure: 142/10 mmHg. LVEDP 17 mmHg. There was no significant gradient across the aortic valve. SELECTIVE CORONARY ARTERIOGRAPHY: LEFT MAIN: Left main is very short and large caliber. It is angiographically patent. It trifurcates into LAD and LCx and ramus. LEFT ANTERIOR DESCENDING CORONARY ARTERY: LAD is large caliber and reaches up to the apex. Proximal LAD has mild mid irregularities. Mid LAD just after giving diagonal 1 branch has 50 to 60% eccentric disease. Distal LAD appears angiographically patent. Diagonal 1 is a moderate caliber vessel and in proximal segment has 80% disease. Distal diagonal 1 is angiographically patent. BOGDAN-3 flow. RAMUS: Moderate caliber and appears angiographically patent with mild to moderate irregularities LEFT CIRCUMFLEX CORONARY ARTERY: Large-caliber vessel and is a dominant vessel. Proximal mid and distal LCx appears angiographically patent with minimal luminal irregularities. Distally it gives PDA and PL branches which appear angiographically patent. RIGHT CORONARY ARTERY: Nondominant and small caliber vessel. It is angiographically patent. IMPRESSION: 80% proximal diagonal 1 disease 60% mid LAD disease Nondominant RCA Mildly elevated LVEDP PLAN: Plan for IFR assessment of diagonal [address] Francis Further recommendations to follow Performing Physician Dayron Nieves MD, FACC, RPVI
[2024-06-25] MEDS: SODIUM CHLORIDE 0.9% 1,000 ML in EMPTY BAG 1 BAG IV SCH ×2 (16:20→19:55)
[2024-06-25] MEDS: TICAGRELOR 90 MG TAB PO ONE (17:07)
[2024-06-25] MEDS: NITROGLYCERIN 1000MCG/10ML SYRINGE INTRACORON ONE (17:12)
[2024-06-25] MEDS: HYDROmorphone 0.5 MG/0.5 ML SYRINGE IVP ONE (17:34)
[2024-06-25] MEDS: niCARdipine Syringe (1,000 mcg/10 mL) INTRACORON ONE (17:42)
[2024-06-25] MEDS: IOPAMIDOL-300 30ML BTL INJ ONE (17:43)
[2024-06-25] MEDS ORDERED: ZOLPIDEM 5 MG TAB PO PRN (17:49)
[2024-06-25] MEDS ORDERED: MAG HYDROX/AL HYDROX/SIMETH 30 ML CUP PO PRN (17:49)
[2024-06-25] MEDS ORDERED: NITROGLYCERIN SL TABS 0.4 MG TAB SUBLINGUAL PRN (17:49)
[2024-06-25] MEDS ORDERED: RX INFO: IV CONTRAST WAS GIVEN 1 EACH MISC MISCELLANE PRN (17:49)
[2024-06-25] MEDS ORDERED: ATROPINE SULFATE 0.1 MG/ML 10ML SYRINGE IV PRN (17:49)
[2024-06-25] MEDS: ATORVASTATIN 80 MG TAB PO STA (17:56)
[2024-06-25] MEDS: ASPIRIN 325 MG TAB PO STA (17:56)
--- NOTE | 2024-06-25 17:56 | P.PCN ---
Date of Procedure: 06/25/24 Operative Findings: PERCUTANEOUS CORONARY INTERVENTION Performing physician David John M.D. analytical statistician Procedure Performed: 1. Successful stenting of the mid LAD using 3.0 x 23 mm Xience drug-eluting stent along with successful angioplasty of the first diagonal branch with an excellent angiographic results. 2. Adjunctive use of IVUS and IFR Indication: Symptomatic 79-year-old female patient who underwent a stress test came in to be abnormal and subsequently underwent a heart catheterization by Dr. Nieves which revealed intermediate to severe disease involving diagonal branch as well as LAD Approach: Right radial artery Complications: None Level of Sedation: Moderate with a sedation length of 60 minutes Procedure Discussion: After obtaining informed consent the patient was brought to the cardiac Executive Candidate Developer. The right radial sheath was exchanged over an 018 wire into another right radial sheath. Subsequently anticoagulation was initiated using heparin. It we decided to do an IFR of both the LAD and diagonal branch. After zeroing the Dobler wire and equalized in between the Dobler wire and guiding catheter which was JL 3.5 guiding catheter the left main was engaged and subsequently the Dobler wire was directed toward the LAD which showed a flow-limiting lesion and then toward the diagonal showed another flow-limiting lesion. At that point I decided to fix the LAD. I did wire the diagonal branch using a run-through wire and I kept the whisper wire in the LAD. IVUS of the LAD was performed and showed a diameter around 3 mm. I did predilatation of the diagonal branch using 3.0 mm score flex balloon then the balloon advanced toward the LAD. After that I did stent the LAD across the diagonal branch using 3.0 x 23 mm Xience KACI where the stent was positioned under fluoroscopy guidance and deployed under fluoroscopy guidance. Subsequently I postdilated the stent using 3.5 mm balloon. Attempting advancing 2.5 mm noncompliant balloon to the diagonal branch after the artery was rewired again and the jailed wire was pulled out was unsuccessful but was successful advancing 2.5 mm semicompliant balloon. I did balloon angioplasty of the diagonal branch and I ended doing balloon angioplasty of the proximal LAD using 3.5 mm NC balloon. Attempting advancing the IVUS catheter to the LAD was unsuccessful because I think the 2 wires were tangled together. Final angiogram showed good angiographic results with BOGDAN-3 flow in both the LAD and diagonal branch and the procedure was completed with no complication Postprocedure Management: 1. Dual antiplatelet therapy using aspirin and Brilinta for at least 6 2. Aggressive cholesterol control 3. Risk factors modification
[2024-06-25] MEDS: TICAGRELOR 90 MG TAB PO SCH (20:13)
[2024-06-25] MEDS: cycloSPORINE 0.05% OPHTH 0.4 ML DROPERETTE BOTH EYES SCH (20:14)
[2024-06-25] MEDS: VIT A,C & E-LUTEIN-MINERALS 1 EACH TAB PO SCH (20:14)
[2024-06-25] MEDS: CHLORTHALIDONE 25 MG TAB PO SCH (20:14)
[2024-06-26] MEDS: ALPRAZolam 0.5 MG TAB PO PRN (00:49)
[2024-06-26 05:17] LABS: African American GFR (CKD) >90 (>60 ml/min/1.73 sqM); Non-African American GFR(CKD) 82 (>60 ml/min/1.73 sqM)
[2024-06-26 07:54] VITALS: RESP 16
[2024-06-26] MEDS: ATORVASTATIN 80 MG TAB PO SCH (08:56)
[2024-06-26] MEDS: PANTOPRAZOLE 40 MG TABLET PO SCH (08:56)
[2024-06-26] MEDS: ASPIRIN 81 MG PO SCH (08:56)
[2024-06-26] MEDS: OXYBUTYNIN 10 MG TAB.ER.24 PO SCH (08:57)
[2024-06-26] MEDS: METOPROLOL SUCCINATE (ER) 25 MG TAB.ER.24H PO SCH (08:57)
[2024-06-26] MEDS: VALSARTAN 160 MG TAB PO SCH (08:57)
[2024-06-26 11:28] VITALS: BMI 32.8
--- NOTE | 2024-06-26 13:18 | P.DS ---
Providers Expected date of discharge: 06/26/24 Attending physician: Dayron Nieves MD Consults: 06/25/24 17:50 Consult Physician Routine Consulting Provider: [facility] Consult Reason/Comments: Post Interventional patient Do you want consulting provider notified?: Already Contacted Primary care physician: [facility] Course: Patient was admitted for an outpatient heart catheterization for an abnormal stress test that she had in the cardiology office because of symptoms of dyspnea on exertion Heart catheterization showed 80% proximal diagonal 1 disease and 60 to 70% mid LAD disease. iFR assessment was performed for both the lesions and IFR was negative for diagonal 1 however positive for mid LAD therefore patient underwent PCI of mid LAD with Dr. Francis with no postop complications. Patient was monitored overnight with no cardiovascular complications She tolerated the procedure well This morning she denies any cardiovascular symptoms. Right radial access site appears intact with no signs of hematoma or bleeding hemodynamically stable Blood pressure is borderline elevated On exam S1-S2 audible, no significant murmurs appreciated Lungs are clear to auscultate with no crackles wheezing or rhonchi No swelling in bilateral lower extremities Brisk carotid upstroke No neurological deficits, alert oriented, detailed exam was not performed Assessment: CAD status post PCI to mid LAD Residual CAD in diagonal 1 proximal 80% disease Paroxysmal atrial fibrillation Essential hypertension Dyslipidemia Obesity Plan Continue dual antiplatelet therapy with aspirin and Plavix for 4 weeks. After 4 weeks drop aspirin continue Plavix for 12 months uninterrupted from the time of PCI Continue Xarelto Follow-up with Dr. Pickard on outpatient basis Optimize and hypertensives. Consider SGLT2 Procedures: Please refer to the cardiac cath report by Dr. Nieves and Dr. Francis Plan - Discharge Summary Discharge Rx Participant: No New Discharge Prescriptions: New Clopidogrel [Plavix] 75 mg PO DAILY 90 Days #90 tablet Continue Tolterodine Tartrate [Detrol LA] 4 mg PO DAILY cycloSPORINE [Restasis] 1 applicator BOTH EYES BID metFORMIN HCL [Glucophage] 1,000 mg PO AC-BID #0 Valsartan [Diovan] 160 mg PO DAILY Rosuvastatin Calcium [Crestor] 40 mg PO DAILY Chlorthalidone [Hygroton] 25 mg PO HS tab Rivaroxaban [Xarelto] 20 mg PO DAILY Pantoprazole [Protonix] 40 mg PO DAILY Dulaglutide [Trulicity] 1.5 mg SQ WEEKLY Metoprolol Succinate [Metoprolol Succinate ER] 25 mg PO DAILY Aspirin 81 mg PO DAILY PRN PRN Reason: Per Protocol Discontinued Vit C/E/Cuperic/Zinc/Lutein [Preservision Lutein Softgel] 1 tab PO BID Discharge Medication List Tolterodine Tartrate [Detrol LA] 4 mg PO DAILY 08/18/15 [History] cycloSPORINE [Restasis] 1 applicator BOTH EYES BID 03/04/21 [History] Chlorthalidone [Hygroton] 25 mg PO HS tab 03/09/21 [Rx] metFORMIN HCL [Glucophage] 1,000 mg PO AC-BID #0 03/09/21 [Rx] Dulaglutide [Trulicity] 1.5 mg SQ WEEKLY 06/21/24 [History] Metoprolol Succinate [Metoprolol Succinate ER] 25 mg PO DAILY 06/21/24 [History] Pantoprazole [Protonix] 40 mg PO DAILY 06/21/24 [History] Rivaroxaban [Xarelto] 20 mg PO DAILY 06/21/24 [History] Rosuvastatin Calcium [Crestor] 40 mg PO DAILY 06/21/24 [History] Valsartan [Diovan] 160 mg PO DAILY 06/21/24 [History] Aspirin 81 mg PO DAILY PRN 06/25/24 [History] Clopidogrel [Plavix] 75 mg PO DAILY 90 Days #90 tablet 06/26/24 [Rx] Follow up Appointment(s)/Referral(s): Edvin Pickard MD [STAFF PHYSICIAN] - 07/03/24 8:00 am (FOLLOW UP APPOINTMENT IS MADE) Patient Instructions/Handouts: Moderate Sedation (ED), After Radial Heart Catheterization (GEN) Activity/Diet/Wound Care/Special Instructions: *NO LIFTING, PUSHING, OR PULLING ANYTHING OVER 5 POUNDS FOR 5 DAYS *NO DRIVING FOR 3 DAYS *YOU CAN REMOVE YOUR DRESSING TOMORROW BUT DO NOT SUBMERSE YOUR PUNCTURE SITE IN WATER FOR A FEW DAYS TO PREVENT INFECTION - SO NO TUB BATHS, POOLS, HOT TUBS, DISHES...ETC *ANY SIGNS OF BLEEDING (HARDNESS, SWELLING, OR EXCESSIVE BRUISING) HOLD DIRECT PRESSURE ON YOUR PUNCTURE SITE AND COME TO THE NEAREST EMERGENCY ROOM TO GET YOUR PUNCTURE SITE LOOKED AT - DO NOT DRIVE YOURSELF! EITHER CALL EMS OR HAVE SOMEONE DRIVE YOU!
[2024-06-26 14:25] VITALS: BP 168/82; PULSE 91; TEMP 97.5
[2024-06-26] MEDS: CLOPIDOGREL 75 MG TAB PO STA (15:12)
[2024-07-02] MEDS ORDERED: Dulaglutide [Trulicity] 1.5 MG/0.5 ML SQ SCH (09:00)
== END 2024-06-26 16:17 | disposition home or self-care (01) ==
LOC: CATHCVL 10:32 → 6NMEDSUR 17:53 → CATHCVL 06-26 16:17
PROVIDERS: ATTEND Student in an Organized Health Care Education/Training Program
DX: I25.10 Atherosclerotic heart disease of native coronary artery without angina pectoris (principal); I48.0 Paroxysmal atrial fibrillation; I10 Essential (primary) hypertension; E11.9 Type 2 diabetes mellitus without complications; E78.5 Hyperlipidemia, unspecified; E66.9 Obesity, unspecified; Z68.32 Body mass index [BMI] 32.0-32.9, adult; Z95.5 Presence of coronary angioplasty implant and graft; Z79.621 Long term (current) use of calcineurin inhibitor; Z79.84 Long term (current) use of oral hypoglycemic drugs; Z79.85 Long-term (current) use of injectable non-insulin antidiabetic drugs; Z79.02 Long term (current) use of antithrombotics/antiplatelets; Z79.01 Long term (current) use of anticoagulants; Z79.899 Other long term (current) drug therapy
CPT/HCPCS: 92978; 93458; 93799; 80048; 82565; 85025; 99152; 99153; C9600; C1769 ×4; C1887; C1894; C1725 ×5; C1753; J2250; J1644 ×3; J2003; J1171; Q9967; J3010; J2305

== ENCOUNTER 2024-07-09 18:17 | Emergency (ER) | payer MEDICARE ==
[2024-07-09 19:28] VITALS: RESP 17; TEMP 98.4
--- NOTE | 2024-07-09 19:29 | XR ---
EXAMINATION TYPE: XR pelvis AP view DATE OF EXAM: 07/09/2024 7:12 PM COMPARISON: None CLINICAL INDICATION: Female, 79 years old with history of Trauma; pain [facility] TECHNIQUE: XR pelvis AP view, examined in a single projection. FINDINGS: There is no evidence of fracture or dislocation. There is no soft tissue abnormality. No a bnormal calcifications are present. Multilevel degenerative changes of the lower spine. The hips appe ar intact. Osteophyte formation of the superior acetabulum bilaterally with mild joint space narrowin g. IMPRESSION: 1. No acute osseous pathology. 2. Mild degeneration changes of the hip. [facility], , 07/09/2024 7:26 PM
--- NOTE | 2024-07-09 19:30 | XR ---
EXAMINATION TYPE: XR chest 2V DATE OF EXAM: 07/09/2024 7:11 PM COMPARISON: Chest radiographs from 03/05/2021. CLINICAL INDICATION: Female, 79 years old with history of trauma; pain TECHNIQUE: XR chest 2V Frontal and lateral views of the chest. FINDINGS: Lungs/Pleura: There is no evidence of pleural effusion, focal consolidation, or pneumothorax. Pulmonary vascularity: Pulmonary vascular congestion. Heart/mediastinum: Cardiomediastinal silhouette is unremarkable. Atherosclerotic calcifications are seen in the aorta. A loop recorder projects over the left thorax over the heart. Musculoskeletal: No acute osseous pathology. Other findings: None IMPRESSION: Mild pulmonary edema. No other evidence for acute process. [facility], , 07/09/2024 7:28 PM
[2024-07-09 19:48] LABS: Basophils # (A) 0.04 10*3/uL (0.00-0.10); Basophils % (A) 0.4 %; HCT 38.2 % (37.2-46.3); HGB 12.9 g/dL (12.0-15.0); Lymphocytes # (A) 1.75 10*3/uL (0.90-5.00); Lymphocytes % (A) 17.4 %; MCH 26.7 pg (27.0-32.0); MCHC 33.8 g/dL (32.0-37.0); MCV 79.1 fL (80.0-97.0); Mean Platelet Volume 10.1 fL (9.5-12.2); Monocytes # (A) 0.58 10*3/uL (0.20-1.00); Monocytes % (A) 5.8 %; Neutrophils # (A) 7.56 10*3/uL (1.80-7.70); Neutrophils % (A) 74.9 %; Platelet Count 233 10*3/uL (140-440); RBC 4.83 10*6/uL (4.10-5.20); RDW 14.4 % (11.5-14.5); WBC 10.08 10*3/uL (4.50-10.00)
[2024-07-09 20:06] LABS: Prothrombin Time 11.3 sec (10.0-12.5)
[2024-07-09 20:09] LABS: Partial Thromboplastin Time 16.9 sec (22.0-30.0)
[2024-07-09 21:02] LABS: ALT 27 U/L (4-34); AST 48 U/L (14-36); African American GFR (CKD) 75 (>60 ml/min/1.73 sqM); Albumin 3.6 g/dL (3.5-5.0); Alcohol <10 mg/dL; Alkaline Phosphatase 114 U/L (38-126); Anion Gap 11 mmol/L; Blood Urea Nitrogen 18 mg/dL (7-17); Calcium 9.3 mg/dL (8.4-10.2); Carbon Dioxide 23 mmol/L (22-30); Chloride 104 mmol/L (98-107); Glucose 220 mg/dL (74-99); Non-African American GFR(CKD) 65 (>60 ml/min/1.73 sqM); Potassium 3.6 mmol/L (3.5-5.1); Sodium 138 mmol/L (137-145); Total Bilirubin 0.6 mg/dL (0.2-1.3); Total Protein 6.7 g/dL (6.3-8.2)
[2024-07-09 21:05] LABS: Amphetamine Screen,Urine Not Detected (NotDetected); Barbiturate Screen,Urine Not Detected (NotDetected); Benzodiazepines Screen,Urine Not Detected (NotDetected); Cocaine Screen,Urine Not Detected (NotDetected); Methadone Screen, Urine Not Detected (NotDetected); Opiate Screen,Urine Not Detected (NotDetected); Oxycodone Screen, Urine Not Detected (NotDetected); Phencyclidine Screen,Urine Not Detected (NotDetected); Tricyclic Antidepressant,Urine Not Detected (NotDetected); Urn Cannabinoid Scrn Not Detected (NotDetected)
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
[2024-07-09 21:49] VITALS: BP 158/80; PULSE 91
== END 2024-07-09 21:49 | disposition home or self-care (01) ==
LOC: EC 18:17
DX: Z04.1 Encounter for examination and observation following transport accident (principal); Z79.82 Long term (current) use of aspirin; Z79.01 Long term (current) use of anticoagulants; Z88.2 Allergy status to sulfonamides; V89.2XXA Person injured in unspecified motor-vehicle accident, traffic, initial encounter; Y92.410 Unspecified street and highway as the place of occurrence of the external cause
CPT/HCPCS: 36415; 71046; 72170; 80053; 80306; 80320; 85025; 85610; 85730; 86850; 86900; 86901; 93005; 99284